=== PATIENT | male | born 1955 | race Caucasian/White ===

== ENCOUNTER 2017-08-07 22:56 | Inpatient (IN) | payer SELFPAY ==
[~2017-08-07] VITALS: Ht 170.2 cm; Wt 75.5 kg
[~2017-08-07 22:56] MED LIST: ATOR10TA15 PO; CARV3.12 PO; CITA20TA4 PO; COUM1TAB PO; COUM4TAB PO; FURO1TAB60 PO; FURO1TAB93 PO; GLIP10TA6 PO; GLUC10TA3 PO; HYDR50 PO; KLOR20TA3 PO; LEVO25TA4 PO; LIPI10TA PO; LISI10TA3 PO; Levothyroxine Sodium PO; METF850 PO; ST JTAB PO; VIAG100T PO
[2017-08-07 23:05] VITALS: BP 112/68; PULSE 113; RESP 21; TEMP 97.7; O2SAT 99
[2017-08-08] VITALS (13 sets, daily range): BP systolic 104–120; BP diastolic 66–80; PULSE 118–131; RESP 16–18; TEMP 97.8–99; O2SAT 93–99
[2017-08-08 00:03] LABS: AUTOMATED NEUTROPHIL # 3.1 TH/MM3 (1.8-7.7); BASOPHIL # 0.1 TH/MM3 (0-0.2); BASOPHIL % 1.9 % (0.0-2.0); EOSINOPHIL # 0.2 TH/MM3 (0-0.4); EOSINOPHIL % 4.1 % (0.0-4.0); HEMATOCRIT 38.5 % (39.0-51.0); HEMOGLOBIN 13.1 GM/DL (13.0-17.0); LYMPH % 10.8 % (9.0-44.0); LYMPHOCYTE # 0.5 TH/MM3 (1.0-4.8); MEAN CELL VOLUME 89.4 FL (80.0-100.0); MEAN CORPUSCULAR HEMOGLOBIN 30.5 PG (27.0-34.0); MEAN CORPUSCULAR HGB CONC 34.1 % (32.0-36.0); MEAN PLATELET VOLUME 8.7 FL (7.0-11.0); MONO % 14.1 % (0.0-8.0); MONOCYTE # 0.6 TH/MM3 (0-0.9); NEUT % 69.1 % (16.0-70.0); PLATELET COUNT 222 TH/MM3 (150-450); RED BLOOD COUNT 4.31 MIL/MM3 (4.50-5.90); RED CELL DISTRIBUTION WIDTH 16.3 % (11.6-17.2); WHITE BLOOD COUNT 4.5 TH/MM3 (4.0-11.0)
[2017-08-08 00:05] LABS: BILIRUBIN, URINE NEG (NEG); BLOOD, URINE NEG (NEG); GLUCOSE,URINE NEG (NEG); HYALINE CAST, URINE 2 /lpf (RARE); KETONE, URINE NEG (NEG); NITRITE,URINE NEG (NEG); SQUAMOUS EPITHELIAL CELL URINE <1 /hpf (0-5); TRANSITIONAL EPI CELLS, URINE <1 /hpf; URINE COLOR LIGHT-YELLOW (YELLW/STRAW); URINE LEUKOCYTE ESTERASE NEG (NEG)
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
--- NOTE | 2017-08-08 00:15 | RADRPT ---
EXAM DATE/TIME: 08/07/2017 23:48 [place] COMPARISON: No previous studies available for comparison. INDICATIONS : Short of breath. MEDICAL HISTORY : None. SURGICAL HISTORY : None. ENCOUNTER: Initial ACUITY: 1 day PAIN SCORE: 0/10 LOCATION: Bilateral chest FINDINGS: There is global cardiac enlargement. Small right effusion and right basilar airspace disease. No pneu mothorax. CONCLUSION: 1. Cardiomegaly with right basilar airspace disease. Differential diagnosis includes pneumonia and as piration. Small right effusion. Rah Meyer MD on August 08, 2017 at 0:12 Board Certified Radiologist. This report was verified electronically.
[2017-08-08 00:19] LABS: ALBUMIN 4.2 GM/DL (3.4-5.0); ALT (GPT) 22 U/L (12-78); AST (GOT) 26 U/L (15-37); BICARBONATE 24.2 MEQ/L (21.0-32.0); BLOOD UREA NITROGEN 33 MG/DL (7-18); CALCIUM 9.4 MG/DL (8.5-10.1); CHLORIDE 97 MEQ/L (98-107); CREATININE 1.66 MG/DL (0.60-1.30); GLOMERULAR FILTRATION RATE 42 ML/MIN (>89); GLUCOSE,RANDOM 163 MG/DL (74-106); MAGNESIUM 1.8 MG/DL (1.5-2.5); SODIUM (NA) 132 MEQ/L (136-145)
[2017-08-08 00:22] LABS: PROTHROMBIN TIME - PATIENT 67.9 SEC (9.8-11.6)
[2017-08-08 00:23] LABS: ALKALINE PHOSPHATASE 71 U/L (45-117); TOTAL BILIRUBIN ADULT 1.2 MG/DL (0.2-1.0); TOTAL PROTEIN 8.2 GM/DL (6.4-8.2); TROPONIN I 0.02 NG/ML (0.02-0.05)
[2017-08-08 00:26] LABS: INTERNATIONAL NORMALIZED RATIO 6.8 RATIO
[2017-08-08] MEDS ORDERED: NITROGLYCERIN 2% OINT 1 GM PACKET TOPICAL ONE (01:15)
[2017-08-08] MEDS ORDERED: ASPIRIN 81 MG CHEW TAB CHEW ONE (01:15)
[2017-08-08] MEDS ORDERED: FUROSEMIDE 40 MG/4 ML VIAL IV PUSH ONE (01:15)
[2017-08-08] MEDS ORDERED: METOPROLOL TARTRATE 5 MG/5 ML VIAL IV PUSH PRN (01:30)
[2017-08-08] MEDS ORDERED: GLUCAGON 1 MG/ML VIAL OTHER PRN (01:45)
[2017-08-08] MEDS ORDERED: DEXTROSE 50% IN WATER 50 ML VIAL(D50) IV PUSH PRN (01:45)
[2017-08-08] MEDS ORDERED: SODIUM CHLORIDE 0.9% FLUSH 10 ML FLUSH IV FLUSH PRN (01:45)
--- NOTE | 2017-08-08 02:14 | HHI.HP ---
HPI Service [facility] Primary [facility] Physician Unknown Admission Diagnosis chf exacerbation, cp r/o mi Diagnoses: Travel History International Travel<30 Days: No Contact w/Intl Traveler <30 Da: No Traveled to Known Affected Are: No History of Present Illness 61-year-old male with a past medical history significant for CHF, diabetes mellitus, hypertension, hyperlipidemia and bipolar disorder presents emergency department for evaluation of shortness of breath. For the past 4-5 days the patient has had shortness of breath that is worse when he lies down and increasing bilateral lower extremity edema. He also reports a dry cough. Denies any fevers/chills. He was seen by his primary care physician and his Lasix dose was increased p.o. with initial good response and then symptoms returned. The patient denies any chest pain. No abdominal pain. No nausea/ vomiting/diarrhea. No lateralizing signs/symptoms. Review of Systems Except as stated in HPI: all other systems reviewed are Neg Past Family Social History Past Medical History CHF Diabetes mellitus Hypertension Hyperlipidemia Bipolar disorder Past Surgical History Cholecystectomy Right knee Reported Medications Reported Meds & Active Scripts Active Coumadin (Warfarin) 4 Mg Tab 4 Mg PO DAILY Glipizide 10 Mg Tab 2 Tab PO BIDAC Take 30 minutes before a meal Coumadin (Warfarin) 1 Mg Tab 1 Mg PO DAILY Levothyroxine (Levothyroxine Sodium) 25 Mcg Tab 1.5 Tab PO DAILY 30 Days Lisinopril 10 Mg Tab 10 Mg PO DAILY Lasix (Furosemide) 40 Mg Tab 40 Mg PO DAILY Glucophage (Metformin HCl) 850 Mg Tab 850 Mg PO TIDPC with meals Atorvastatin (Atorvastatin Calcium) 10 Mg Tab 10 Mg PO HS Citalopram (Citalopram Hydrobromide) 20 Mg Tab 20 Mg PO DAILY Klor-Con M20 (Potassium Chloride Microencaps) 20 Meq Tab 20 Meq PO DAILY Carvedilol 3.125 Mg Tab 3.125 Mg PO DAILY Lipitor 10 Mg Tab (Atorvastatin Calcium) 10 Mg Tab 1 Tab PO DAILY [Levothyroxine Sodium] 25 MCG Tab 1.5 Tab PO DAILY@0600 Furosemide 40 Mg Tab 40 Mg PO DAILY Viagra (Sildenafil Citrate) 100 Mg Tab 100 Mg PO DAILY Vistaril (Hydroxyzine Pamoate) 50 Mg Cap 50 Mg PO Q8 Glipizide 10 Mg Tab 2 Tab PO BID Aspirin Ec Low Strength (Aspirin) 81 Mg Tab 81 Mg PO DAILY Allergies: Coded Allergies: No Known Allergies (Unverified Allergy, Unknown, 08/08/17) Family History Negative for CAD/DM Social History Denies alcohol, tobacco and illicit drugs Physical Exam Vital Signs Vital Signs Date Time Temp Pulse Resp B/P (MAP) Pulse Ox O2 Delivery O2 Flow Rate FiO2 08/07/17 23:05 97.7 113 21 112/68 (83) 99 Physical Exam GENERAL: male sitting up in bed SKIN: No rashes, ecchymoses or lesions. Cool and dry. HEAD: Atraumatic. Normocephalic. No temporal or scalp tenderness. EYES: Pupils equal round and reactive. Extraocular motions intact. No scleral icterus. No injection or drainage. ENT: Nose without bleeding, purulent drainage or septal hematoma. Throat without erythema, tonsillar hypertrophy or exudate. Uvula midline. Airway patent. NECK: Trachea midline. No JVD or lymphadenopathy. Supple, nontender, no meningeal signs. CARDIOVASCULAR: Regular rate and rhythm without murmurs, gallops, or rubs. RESPIRATORY: Crackles, right greater than left. GASTROINTESTINAL: Abdomen soft, non-tender, nondistended. No hepato-splenomegaly , or palpable masses. No guarding. MUSCULOSKELETAL: 2+ bilateral lower extremity pitting edema NEUROLOGICAL: Awake and alert. Cranial nerves II through XII intact. Motor and sensory grossly within normal limits. Normal speech. Laboratory Laboratory Tests Test 08/07/17 23:45 White Blood Count 4.5 Red Blood Count 4.31 Hemoglobin 13.1 Hematocrit 38.5 Mean Corpuscular Volume 89.4 Mean Corpuscular Hemoglobin 30.5 Mean Corpuscular Hemoglobin Concent 34.1 Red Cell Distribution Width 16.3 Platelet Count 222 Mean Platelet Volume 8.7 Neutrophils (%) (Auto) 69.1 Lymphocytes (%) (Auto) 10.8 Monocytes (%) (Auto) 14.1 Eosinophils (%) (Auto) 4.1 Basophils (%) (Auto) 1.9 Neutrophils # (Auto) 3.1 Lymphocytes # (Auto) 0.5 Monocytes # (Auto) 0.6 Eosinophils # (Auto) 0.2 Basophils # (Auto) 0.1 CBC Comment DIFF FINAL Differential Comment Prothrombin Time 67.9 Prothromb Time International Ratio 6.8 Activated Partial Thromboplast Time 50.9 Urine Color LIGHT-YELLOW Urine Turbidity CLEAR Urine pH 5.0 Urine Specific [place] 1.008 Urine Protein NEG Urine Glucose (UA) NEG Urine Ketones NEG Urine Occult Blood NEG Urine Nitrite NEG Urine Bilirubin NEG Urine Urobilinogen LESS THAN 2.0 Urine Leukocyte Esterase NEG Urine RBC LESS THAN 1 Urine WBC LESS THAN 1 Urine Squamous Epithelial Cells <1 Urine Transitional Epithelial Cells <1 Urine Hyaline Casts 2 Microscopic Urinalysis Comment CULT NOT INDICATED Blood Urea Nitrogen 33 Creatinine 1.66 Random Glucose 163 Total Protein 8.2 Albumin 4.2 Calcium Level 9.4 Magnesium Level 1.8 Alkaline Phosphatase 71 Aspartate Amino Transf (AST/SGOT) 26 Alanine Aminotransferase (ALT/SGPT) 22 Total Bilirubin 1.2 Sodium Level 132 Potassium Level 4.9 Chloride Level 97 Carbon Dioxide Level 24.2 Anion Gap 11 Estimat Glomerular Filtration Rate 42 Total Creatine Kinase 119 Creatine Kinase MB 2.1 Troponin I 0.02 B-Type Natriuretic Peptide 237 Lipase 485 Result Diagram: 08/07/17 2345 08/07/172344 Caprini VTE Risk Assessment Caprini VTE Risk Assessment: Mod/High Risk (score >= 2) Caprini Risk Assessment Model Point Value = 1 Point Value = 2 Point Value = 3 Point Value = 5 Age 41-60 Minor surgery BMI > 25 kg/m2 Swollen legs Varicose veins or History of unexplained or recurrent spontaneous Oral contraceptives or hormone replacement Sepsis (< 1 month) Serious lung disease, including pneumonia (< 1 month) Abnormal pulmonary function Acute myocardial infarction Congestive heart failure (< 1 month) History of inflammatory bowel disease Medical patient at bed rest Age 61-74 Arthroscopic surgery Major open surgery (> 45 min) Laparoscopic surgery (> 45 min) Malignancy Confined to bed (> 72 hours) Immobilizing plaster cast Central venous access Age >= 75 History of VTE Family history of VTE Factor V Leiden Prothrombin [id number] Lupus anticoagulant Anticardiolipin antibodies Elevated serum homocysteine Heparin-induced thrombocytopenia Other congenital or acquired thrombophilia Stroke (< 1 month) Elective arthroplasty Hip, pelvis, or leg fracture Acute spinal cord injury (< 1 month) Prophylaxis Regimen Total Risk Factor Score Risk Level Prophylaxis Regimen 0-1 Low Early ambulation 2 Moderate Order ONE of the following: *Sequential Compression Device (SCD) *Heparin 5000 units SQ BID 3-4 Higher Order ONE of the following medications: *Heparin 5000 units SQ TID *Enoxaparin/Lovenox 40 mg SQ daily (WT < 150 kg, CrCl > 30 mL/min) *Enoxaparin/Lovenox 30 mg SQ daily (WT < 150 kg, CrCl > 10-29 mL/min) *Enoxaparin/Lovenox 30 mg SQ BID (WT < 150 kg, CrCl > 30 mL/min) AND/OR *Sequential Compression Device (SCD) 5 or more Highest Order ONE of the following medications: *Heparin 5000 units SQ TID (Preferred with Epidurals) *Enoxaparin/Lovenox 40 mg SQ daily (WT < 150 kg, CrCl > 30 mL/min) *Enoxaparin/Lovenox 30 mg SQ daily (WT < 150 kg, CrCl > 10-29 mL/min) *Enoxaparin/Lovenox 30 mg SQ BID (WT < 150 kg, CrCl > 30 mL/min) AND *Sequential Compression Device (SCD) Assessment and Plan Assessment and Plan Assessment/plan: 1. CHF exacerbation/shortness of breath/edema Chest x-ray significant small right pleural effusion with pulmonary vascular congestion, personally reviewed IV Lasix Fluid restriction 2. Atrial fibrillation anticoagulated on Coumadin/supratherapeutic INR INR 6.8 No signs of bleeding Holding home Coumadin 3. Diabetes mellitus Holding home oral anti-hyperglycemics Monitor blood glucose Sliding-scale insulin 4. Hypertension/hyperlipidemia/bipolar disorder Continue home medications once reconciled FEN Heart healthy diet with fluid restriction Electrolytes: monitor and replete prn Holding pharmacologic anticoagulation for supratherapeutic INR Bernadette Cueto MD Aug 08, 2017 02:14
[2017-08-08] MEDS ORDERED: HEPARIN SODIUM - SQ 10,000 UNITS/ML VIAL SQ SCH (06:00)
[2017-08-08] MEDS: FUROSEMIDE 40 MG/4 ML VIAL IVP SCH ×2 (07:33→16:57)
[2017-08-08] MEDS: INSULIN ASPART SUPPLEMENTAL SCALE SQ SCH ×4 (07:34→23:08)
[2017-08-08] MEDS: SODIUM CHLORIDE 0.9% FLUSH 10 ML FLUSH IV FLUSH SCH ×2 (07:34→23:05)
[2017-08-08] MEDS: LEVOTHYROXINE SODIUM 25 MCG TAB PO SCH (09:00)
--- NOTE | 2017-08-08 09:18 | HHI.PR ---
Subjective Remarks Follow up for CHF exacerbation, GARCÍA. The patient reports mild improvement of symptoms overnight. Still with mild shortness of breath and dyspnea on exertion , although he was able to ambulate down the hallway without much difficulty. He denies any chest pain. He reports continued dry nonproductive cough. Denies fevers/chills. Leg swelling improved slightly overnight, still edematous. The patient admits to recent dietary indiscretion likely contributing to fluid overload. He has no other medical complaints at this time. Objective Vitals Vital Signs Date Time Temp Pulse Resp B/P (MAP) Pulse Ox O2 Delivery O2 Flow Rate FiO2 08/08/17 08:53 97.8 130 18 120/78 (92) 97 08/08/17 04:53 99 21 08/08/17 04:51 119 08/08/17 02:54 98.4 130 16 113/71 (85) 96 08/08/17 02:45 118 95 08/07/17 23:05 97.7 113 21 112/68 (83) 99 Result Diagram: 08/07/17234408/07/172344 Imaging Last Impressions Chest X-Ray 08/07/172341 Signed Impressions: Service Date/Time: Monday, August 07, 2017 23:48 - CONCLUSION: 1. Cardiomegaly with right basilar airspace disease. Differential diagnosis includes pneumonia and aspiration. Small right effusion. Rah Meyer MD Objective Remarks GENERAL: Well-nourished, well-developed male patient in [facility]. SKIN: Warm and dry. No rash. HEAD: Normocephalic. Atraumatic. EYES: Pupils equal and round. No scleral icterus. No injection or drainage. ENT: No nasal bleeding or discharge. Mucous membranes pink and moist. NECK: Supple. Trachea midline. CARDIOVASCULAR: Irregular rate and rhythm. No murmur appreciated. RESPIRATORY: No accessory muscle use. Decreased breath sounds at bilateral bases , worse on the right. GASTROINTESTINAL: Abdomen soft, non-tender, nondistended. Normoactive bowel sounds x4. MUSCULOSKELETAL: No obvious deformities. 2+ bilateral lower extremity pitting edema. NEUROLOGICAL: Awake and alert. No obvious cranial nerve deficits. Motor grossly within normal limits. Normal speech. PSYCHIATRIC: Appropriate mood and affect; insight and judgment normal. Medications and IVs Current Medications Medications (Trade) Dose Ordered Sig/Tony Route Start Time Stop Time Status Last Admin (Lopressor Inj) 5 mg Q5M PRN IV PUSH 08/08/17 01:30 (NS Flush) 2 ml BID IV FLUSH 08/08/17 09:00 08/08/17 07:34 (NS Flush) 2 ml UNSCH PRN IV FLUSH 08/08/17 01:45 (Lasix Inj) 40 mg BID@09,18 IVP 08/08/17 09:00 08/08/17 07:33 (D50w (Vial) Inj) 50 ml UNSCH PRN IV PUSH 08/08/17 01:45 (Glucagon Inj) 1 mg UNSCH PRN OTHER 08/08/17 01:45 (NovoLOG SUPPLEMENTAL SCALE) 1 ACHS SLIDING SCALE SQ 08/08/17 08:00 (Lipitor) 10 mg HS PO 08/08/17 21:00 (Coreg) 3.125 mg DAILY PO 08/08/17 09:00 08/08/17 09:51 (CeleXA) 20 mg DAILY PO 08/08/17 09:00 08/08/17 09:49 (Synthroid) 37.5 mcg DAILY@0600 PO 08/08/17 09:00 (Tessalon) 100 mg Q8H PRN PO 08/08/17 09:30 08/08/17 09:49 (Tylenol) 650 mg Q4H PRN PO 08/08/17 12:00 A/P Assessment and Plan 61-year-old male with a past medical history significant for CHF, diabetes mellitus, hypertension, hyperlipidemia and bipolar disorder presents with 4-5 day history of shortness of breath, cough, and leg swelling. Acute Systolic CHF Exacerbation: presented with SOB/BUENO/orthopnea/BLE edema. EMR reviewed, last echo on file Mar 2014 with EF 30-35%. -BNP elevated at 237 -Chest x-ray shows small right pleural effusion with pulmonary vascular congestion, personally reviewed -Continue diuresis with IV Lasix 40mg bid, caution with renal insufficiency -Fluid restrictions -Monitor Is&Os -Weigh patient daily -Continue patient's SIMON, BB -Monitor for improvement -Outpatient f/up with director broadcast GARCÍA: Cr 1.66, previously 0.67 in 2014. Possibly secondary to recently increased lasix dose; also may be component of cardiorenal syndrome -continue diuresis and monitor renal function -avoid nephrotoxins -hold patient's lisinopril -repeat BMP in am Atrial fibrillation with RVR: patient with HR into 120s on telemetry. -anticoagulated on Coumadin with supratherapeutic INR. -continue patient's BB -consider adding Cardizem if needed -Monitor on telemetry Supratherapeutic INR: INR 6.8. No active signs of bleeding -Holding home Coumadin for now -monitor daily INR and restart Coumadin when < 3. Pharmacy consult. Diabetes mellitus: chronic -Holding home oral anti-hyperglycemics -Monitor Accu-checks and cover with SSI Hypertension/hyperlipidemia: chronic -continue home meds including statin, coreg. Holding lisinopril for now with GARCÍA. -monitor BP, adjust antihypertensives as needed Depresion/Bipolar disorder: chronic -continue patient's home meds DVT Prophylaxis: holding chemoprophylaxis with supratherapeutic INR Discharge Planning Discharge pending further clinical improvement. Likely needs additional 1-2 days of hospitalization. Dora Alexander PA-C Aug 08, 2017 9:18 am
[2017-08-08] MEDS: BENZONATATE 100 MG CAP PO PRN ×3 (09:49→23:06)
[2017-08-08] MEDS: CITALOPRAM HYDROBROMIDE 20 MG TAB PO SCH (09:49)
[2017-08-08] MEDS: CARVEDILOL 3.125 MG TAB PO SCH (09:51)
[2017-08-08] MEDS: ACETAMINOPHEN 325 MG TAB PO PRN ×2 (16:56→23:07)
[2017-08-08] MEDS ORDERED: METOPROLOL TARTRATE 25 MG TAB PO ONE (23:00)
[2017-08-08] MEDS ORDERED: ALUMINUM/MAGNESIUM/SIMETH 30 ML CUP PO ONE (23:00)
[2017-08-08] MEDS: ATORVASTATIN 10 MG TAB PO SCH (23:06)
[2017-08-08] MEDS ORDERED: RESP: IPRATROPIUM 0.5 MG/2.5 ML NEB NEB PRN (23:45)
[2017-08-09] VITALS (13 sets, daily range): BP systolic 90–107; BP diastolic 65–81; PULSE 95–148; RESP 16–18; TEMP 96.9–98.6; O2SAT 94–98
--- NOTE | 2017-08-09 00:14 | EKG ---
Date Performed: 08/08/2017 Time Performed: 01:14:07 PTAGE: 61 years EKG: ATRIAL FLUTTER/TACHYCARDIA WITH RAPID VENTRICULAR RESPONSE MARKED RIGHT AXIS DEVIATION INTR AVENTRICULAR CONDUCTION DELAY POSSIBLE ANTERIOR MYOCARDIAL INFARCTION ABNORMAL ECG PREVIOUS TRACING : 08/08/2017 01.13 Compared to previous tracing, rate has increased DOCTOR: Kalpesh Cramer Interpretating Date/Time 08/09/2017 00:13:19
[2017-08-09] MEDS: LEVOTHYROXINE SODIUM 25 MCG TAB PO SCH (05:43)
[2017-08-09 07:03] LABS: AUTOMATED NEUTROPHIL # 9.8 TH/MM3 (1.8-7.7); BASOPHIL % 0.3 % (0.0-2.0); HEMATOCRIT 37.6 % (39.0-51.0); HEMOGLOBIN 12.9 GM/DL (13.0-17.0); LYMPH % 4.5 % (9.0-44.0); LYMPHOCYTE # 0.5 TH/MM3 (1.0-4.8); MEAN CELL VOLUME 89.1 FL (80.0-100.0); MEAN CORPUSCULAR HEMOGLOBIN 30.5 PG (27.0-34.0); MEAN CORPUSCULAR HGB CONC 34.3 % (32.0-36.0); MEAN PLATELET VOLUME 8.7 FL (7.0-11.0); MONO % 5.4 % (0.0-8.0); MONOCYTE # 0.6 TH/MM3 (0-0.9); NEUT % 89.8 % (16.0-70.0); PLATELET COUNT 181 TH/MM3 (150-450); RED BLOOD COUNT 4.22 MIL/MM3 (4.50-5.90); RED CELL DISTRIBUTION WIDTH 16.3 % (11.6-17.2); WHITE BLOOD COUNT 10.9 TH/MM3 (4.0-11.0)
[2017-08-09 07:17] LABS: BICARBONATE 24.1 MEQ/L (21.0-32.0); CALCIUM 9.2 MG/DL (8.5-10.1); CREATININE 1.53 MG/DL (0.60-1.30)
[2017-08-09 07:22] LABS: INTERNATIONAL NORMALIZED RATIO 4.8 RATIO; PROTHROMBIN TIME - PATIENT 47.9 SEC (9.8-11.6)
[2017-08-09] MEDS: BENZONATATE 100 MG CAP PO PRN ×2 (07:44→16:03)
[2017-08-09] MEDS: SODIUM CHLORIDE 0.9% FLUSH 10 ML FLUSH IV FLUSH SCH ×2 (07:44→21:11)
[2017-08-09] MEDS: CITALOPRAM HYDROBROMIDE 20 MG TAB PO SCH (07:44)
[2017-08-09] MEDS: FUROSEMIDE 40 MG/4 ML VIAL IVP SCH (07:45)
[2017-08-09] MEDS: CARVEDILOL 3.125 MG TAB PO SCH ×2 (07:46→21:10)
[2017-08-09] MEDS: INSULIN ASPART SUPPLEMENTAL SCALE SQ SCH ×4 (08:00→21:11)
--- NOTE | 2017-08-09 15:22 | HHI.PR ---
Subjective Remarks The patient said he was very short of breath with minimal exertion. He has been coughing a lot. He says his mucus is clear. He is looking forward to leaving the hospital soon. His family was at the bedside and their questions were answered. Objective Vitals Vital Signs Date Time Temp Pulse Resp B/P (MAP) Pulse Ox O2 Delivery O2 Flow Rate FiO2 08/09/17 12:33 96.9 110 18 105/68 (80) 96 08/09/17 08:05 97.6 118 18 106/76 (86) 95 08/09/17 08:00 108 08/09/17 05:40 97.9 111 18 103/72 (82) 96 08/09/17 05:31 98.6 95 18 107/81 (90) 96 08/09/17 04:03 109 08/09/17 00:10 97 Nasal Cannula 2.00 08/09/17 00:08 121 08/08/17 23:52 98.2 131 18 118/80 (93) 94 08/08/17 23:30 97 Nasal Cannula 2.00 08/08/17 23:12 130 96 08/08/17 20:28 97 21 08/08/17 20:18 124 08/08/17 19:39 99.0 128 18 108/74 (85) 93 08/08/17 17:21 123 08/08/17 16:34 97.8 127 16 120/68 (85) 98 I/O 08/08/17 08/08/17 08/08/17 08/09/17 08/09/17 08/09/17 07:00 15:00 23:00 07:00 15:00 23:00 Intake Total 200 ml 50 ml Output Total 350 ml 400 ml Balance -150 ml -350 ml Intake Oral 200 ml 50 ml Output Urine Total 350 ml 400 ml Result Diagram: 08/09/17 0550 08/09/17 0554 Imaging Last Impressions Chest X-Ray 08/07/17 6829 Signed Impressions: Service Date/Time: Monday, August 07, 2017 23:48 - CONCLUSION: 1. Cardiomegaly with right basilar airspace disease. Differential diagnosis includes pneumonia and aspiration. Small right effusion. Rah Meyer MD Objective Remarks GENERAL: Well-nourished, well-developed male patient in [facility]. SKIN: Warm and dry. No rash. HEAD: Normocephalic. Atraumatic. EYES: Pupils equal and round. No scleral icterus. No injection or drainage. ENT: No nasal bleeding or discharge. Mucous membranes pink and moist. NECK: Supple. Trachea midline. CARDIOVASCULAR: Irregular rate and rhythm. No murmur appreciated. RESPIRATORY: No accessory muscle use. Decreased breath sounds at bilateral bases. GASTROINTESTINAL: Abdomen soft, non-tender, nondistended. Normoactive bowel sounds x4. MUSCULOSKELETAL: No obvious deformities. 1-2+ bilateral lower extremity pitting edema. NEUROLOGICAL: Awake and alert. No obvious cranial nerve deficits. Motor grossly within normal limits. Normal speech. PSYCHIATRIC: Appropriate mood and affect; insight and judgment normal. Medications and IVs Current Medications Medications (Trade) Dose Ordered Sig/Tony Route Start Time Stop Time Status Last Admin (Lopressor Inj) 5 mg Q5M PRN IV PUSH 08/08/17 01:30 (NS Flush) 2 ml BID IV FLUSH 08/08/17 09:00 08/09/17 07:44 (NS Flush) 2 ml UNSCH PRN IV FLUSH 08/08/17 01:45 (Lasix Inj) 40 mg BID@ IVP 08/08/17 09:00 08/09/17 07:45 (D50w (Vial) Inj) 50 ml UNSCH PRN IV PUSH 08/08/17 01:45 (Glucagon Inj) 1 mg UNSCH PRN OTHER 08/08/17 01:45 (NovoLOG SUPPLEMENTAL SCALE) 1 ACHS SLIDING SCALE SQ 08/08/17 08:00 08/09/17 12:00 (Lipitor) 10 mg HS PO 08/08/17 21:00 08/08/17 23:06 (Coreg) 3.125 mg DAILY PO 08/08/17 09:00 08/09/17 07:46 (CeleXA) 20 mg DAILY PO 08/08/17 09:00 08/09/17 07:44 (Synthroid) 37.5 mcg DAILY@0600 PO 08/08/17 09:00 08/09/17 05:43 (Tessalon) 100 mg Q8H PRN PO 08/08/17 09:30 08/09/17 07:44 (Tylenol) 650 mg Q4H PRN PO 08/08/17 12:00 4/23/18 23:07 (Atrovent Neb) 0.5 mg Q4HR NEB PRN NEB 08/08/17 23:45 08/09/17 00:06 A/P Assessment and Plan 61-year-old male with a past medical history significant for CHF, diabetes mellitus, hypertension, hyperlipidemia and bipolar disorder presents with 4-5 day history of shortness of breath, cough, and leg swelling. Acute Systolic CHF Exacerbation: presented with SOB/BUENO/orthopnea/BLE edema. EMR reviewed, last echo on file Mar 2014 with EF 30-35%. -BNP elevated at 237 -Chest x-ray shows right airspace disease -Continue diuresis, change Lasix to 40mg PO bid, caution with renal insufficiency -Fluid restrictions -Monitor Is&Os -Weigh patient daily -Continue patient's SIMON, BB -Monitor for improvement -Outpatient f/up with [employer]ili[employer] supervisor. Consider consult. - repeat echo. - PT eval. CAP CXR suggestive of right sided PNA. Pt has cough. - start IV azithromycin and ceftriaxone. - CXR in AM. - Tessalon Perles as needed. GARCÍA: Cr 1.66, previously 0.67 in 2013. Possibly secondary to recently increased Lasix dose; also may be component of cardiorenal syndrome -continue diuresis and monitor renal function -avoid nephrotoxins -hold patient's lisinopril -repeat BMP in am Atrial fibrillation with RVR. -anticoagulated on Coumadin with supratherapeutic INR. -continue patient's Coreg, increase to 6.25 mg BID if tolerates. -Monitor on telemetry Supratherapeutic INR: INR 6.8. No active signs of bleeding -Holding home Coumadin for now -monitor daily INR and restart Coumadin when < 3. Diabetes mellitus: chronic -Holding home oral anti-hyperglycemics -Monitor Accu-checks and cover with SSI - add long acting insulin. Hypertension/hyperlipidemia: chronic -continue home meds including statin, coreg. Holding lisinopril for now with GARCÍA. -monitor BP, adjust antihypertensives as needed Depresion/Bipolar disorder: chronic -continue patient's home meds Hyponatremia Likely s/t diuresis. - monitor BMP. DVT Prophylaxis: holding chemoprophylaxis with supratherapeutic INR Discharge Planning Awaiting improvement Sergei Boswell DO Aug 09, 2017 15:22
[2017-08-09] MEDS ORDERED: INSULIN ASPART 1,000 UNITS/10 ML VIAL SQ ONE (15:30)
[2017-08-09] MEDS ORDERED: CARVEDILOL 3.125 MG TAB PO ONE (15:30)
[2017-08-09] MEDS: AZITHROMYCIN INJ 500 MG in SODIUM CHLOR 0.9% 250 ML INJ 250 ML IV SCH (16:03)
[2017-08-09] MEDS: cefTRIAXone INJ 1,000 MG in SODIUM CHLORIDE 0.9% INJ 100 ML IV SCH (16:03)
[2017-08-09] MEDS: FUROSEMIDE 40 MG TAB PO SCH (18:00)
[2017-08-09] MEDS ORDERED: CARVEDILOL 3.125 MG TAB PO SCH (21:00)
[2017-08-09] MEDS: ATORVASTATIN 10 MG TAB PO SCH (21:10)
[2017-08-09] MEDS: INSULIN DETEMIR 100 UNITS/ML VIAL SQ SCH (21:11)
[2017-08-10] VITALS (10 sets, daily range): BP systolic 90–123; BP diastolic 51–75; PULSE 98–126; RESP 16–24; TEMP 97.4–98.3; O2SAT 94–97
[2017-08-10] MEDS: LEVOTHYROXINE SODIUM 25 MCG TAB PO SCH (05:42)
[2017-08-10 06:02] LABS: HEMATOCRIT 36.7 % (39.0-51.0); HEMOGLOBIN 12.5 GM/DL (13.0-17.0); MEAN CELL VOLUME 88.5 FL (80.0-100.0); MEAN CORPUSCULAR HEMOGLOBIN 30.2 PG (27.0-34.0); MEAN CORPUSCULAR HGB CONC 34.1 % (32.0-36.0); MEAN PLATELET VOLUME 8.3 FL (7.0-11.0); PLATELET COUNT 188 TH/MM3 (150-450); RED BLOOD COUNT 4.14 MIL/MM3 (4.50-5.90); WHITE BLOOD COUNT 7.3 TH/MM3 (4.0-11.0)
[2017-08-10 06:03] LABS: INTERNATIONAL NORMALIZED RATIO 2.9 RATIO; PROTHROMBIN TIME - PATIENT 29.4 SEC (9.8-11.6)
--- NOTE | 2017-08-10 06:06 | RADRPT ---
EXAM DATE/TIME: 08/10/2017 05:54 [facility] COMPARISON: CHEST SINGLE AP, August 07, 2017, 23:48. INDICATIONS : Shortness of breath. MEDICAL HISTORY : None. SURGICAL HISTORY : None. ENCOUNTER: Subsequent ACUITY: 4 - 6 days PAIN SCORE: 0/10 LOCATION: Bilateral chest FINDINGS: Cardiomegaly with right basilar airspace disease and right effusion similar to August 07. No pneumotho rax. CONCLUSION: 1. Cardiomegaly with right basilar airspace disease and pleural effusion similar to prior study. Mini mal left basilar atelectasis. Rah Meyer MD on August 10, 2017 at 6:04 Board Certified Radiologist. This report was verified electronically.
[2017-08-10] MEDS: BENZONATATE 100 MG CAP PO PRN ×2 (06:28→16:13)
[2017-08-10 06:37] LABS: BICARBONATE 27.1 MEQ/L (21.0-32.0); CALCIUM 9.1 MG/DL (8.5-10.1); CREATININE 1.58 MG/DL (0.60-1.30); MAGNESIUM 2.1 MG/DL (1.5-2.5)
--- NOTE | 2017-08-10 09:21 | HHI.PR ---
Subjective Remarks The patient was feeling a lot better. He was having a productive cough. His breathing was better. He still has some leg swelling. Discussed with his family. Objective Vitals Vital Signs Date Time Temp Pulse Resp B/P (MAP) Pulse Ox O2 Delivery O2 Flow Rate FiO2 08/10/17 08:32 111 08/10/17 08:20 98.0 124 24 96/67 (77) 96 08/10/17 05:32 98.3 122 16 100/75 (83) 96 08/10/17 00:24 97.5 108 16 94/59 (71) 94 08/09/17 23:00 100 08/09/17 22:23 98 08/09/17 21:28 97.5 148 16 94/69 (77) 94 08/09/17 19:00 Room Air 08/09/17 16:33 97.5 122 18 90/65 (73) 98 08/09/17 15:00 107 08/09/17 12:33 96.9 110 18 105/68 (80) 96 I/O 08/09/17 08/09/17 08/09/17 08/10/17 08/10/17 08/10/17 07:00 15:00 23:00 07:00 15:00 23:00 Intake Total 50 ml 1320 ml Output Total 400 ml 1270 ml Balance -350 ml 50 ml Intake Oral 50 ml 620 ml IV Total 700 ml Output Urine Total 400 ml 1270 ml Result Diagram: 08/10/17 0526 08/10/17 0526 Imaging Last Impressions Chest X-Ray 08/10/17 0600 Signed Impressions: Service Date/Time: Thursday, August 10, 2017 05:54 - CONCLUSION: 1. Cardiomegaly with right basilar airspace disease and pleural effusion similar to prior study. Minimal left basilar atelectasis. Rah Meyer MD Objective Remarks GENERAL: Well-nourished, well-developed male patient in [facility]. SKIN: Warm and dry. No rash. HEAD: Normocephalic. Atraumatic. EYES: Pupils equal and round. No scleral icterus. No injection or drainage. ENT: No nasal bleeding or discharge. Mucous membranes pink and moist. NECK: Supple. Trachea midline. CARDIOVASCULAR: Irregular rate and rhythm. No murmur appreciated. RESPIRATORY: No accessory muscle use. Crackles at the right base. GASTROINTESTINAL: Abdomen soft, non-tender, nondistended. Normoactive bowel sounds x4. MUSCULOSKELETAL: No obvious deformities. 1-2+ bilateral lower extremity pitting edema. NEUROLOGICAL: Awake and alert. No obvious cranial nerve deficits. Motor grossly within normal limits. Normal speech. PSYCHIATRIC: Appropriate mood and affect; insight and judgment normal. Medications and IVs Current Medications Medications (Trade) Dose Ordered Sig/Tony Route Start Time Stop Time Status Last Admin (Lopressor Inj) 5 mg Q5M PRN IV PUSH 08/08/17 01:30 (NS Flush) 2 ml BID IV FLUSH 08/08/17 09:00 08/09/17 21:11 (NS Flush) 2 ml UNSCH PRN IV FLUSH 08/08/17 01:45 (D50w (Vial) Inj) 50 ml UNSCH PRN IV PUSH 08/08/17 01:45 (Glucagon Inj) 1 mg UNSCH PRN OTHER 08/08/17 01:45 (NovoLOG SUPPLEMENTAL SCALE) 1 ACHS SLIDING SCALE SQ 08/08/17 08:00 08/09/17 21:11 (CeleXA) 20 mg DAILY PO 08/08/17 09:00 08/09/17 07:44 (Synthroid) 37.5 mcg DAILY@0600 PO 08/08/17 09:00 08/10/17 05:42 (Tylenol) 650 mg Q4H PRN PO 08/08/17 12:00 08/08/17 23:07 (Atrovent Neb) 0.5 mg Q4HR NEB PRN NEB 08/08/17 23:45 08/09/17 00:06 (Levemir Inj) 15 units HS SQ 08/09/17 21:00 08/09/17 21:11 (Lasix) 40 mg BID@,18 PO 08/09/17 18:00 08/09/17 18:00 Azithromycin 500 mg/Sodium Chloride 250 ml @ 250 mls/hr Q24H IV 08/09/17 16:00 08/09/17 16:03 Ceftriaxone Sodium 1000 mg/ Sodium Chloride 100 ml @ 200 mls/hr Q24H IV 08/09/17 17:00 08/09/17 16:03 (Tessalon) 200 mg TID PRN PO 08/09/17 15:15 08/10/17 06:28 (Coreg) 6.25 mg BID PO 08/09/17 21:00 08/09/17 21:10 A/P Assessment and Plan 61-year-old male with a past medical history significant for CHF, diabetes mellitus, hypertension, hyperlipidemia and bipolar disorder presents with 4-5 day history of shortness of breath, cough, and leg swelling. Acute Systolic CHF Exacerbation: presented with SOB/BUENO/orthopnea/BLE edema. EMR reviewed, last echo on file Mar 2014 with EF 30-35%. -BNP elevated at 237 -Chest x-ray shows right airspace disease -Continue diuresis, change Lasix to 40mg PO bid, caution with renal insufficiency -Fluid restrictions -Monitor Is & Os -Weigh patient daily -Continue patient's BB -Monitor for improvement - consult cardiology. - repeat echo. - PT eval. CAP CXR suggestive of right sided PNA. Pt has cough. - started IV azithromycin and ceftriaxone. - Tessalon Perles as needed. - encourage ambulation. - IS. GARCÍA: Cr 1.66, previously 0.67 in 2013. Possibly secondary to recently increased Lasix dose; also may be component of cardiorenal syndrome -continue diuresis and monitor renal function -avoid nephrotoxins -hold patient's lisinopril -repeat BMP in am Atrial fibrillation with RVR. -anticoagulated on Coumadin with supratherapeutic INR. Coumadin resumed 08/10. -continue patient's Coreg, increase to 6.25 mg BID if tolerates. -Monitor on telemetry - cardiology consult. Diabetes mellitus: chronic -Holding home oral anti-hyperglycemics -Monitor Accu-checks and cover with SSI - added long acting insulin. Hypertension/hyperlipidemia: chronic -continue home meds including statin, coreg. Holding lisinopril for now with GARCÍA. -monitor BP, adjust antihypertensives as needed Depresion/Bipolar disorder: chronic -continue patient's home meds Hyponatremia Likely s/t diuresis. - monitor BMP. DVT Prophylaxis: holding chemoprophylaxis with supratherapeutic INR Discharge Planning Awaiting improvement Sergei Boswell DO Aug 10, 2017 09:21
[2017-08-10] MEDS: FUROSEMIDE 40 MG TAB PO SCH ×2 (09:36→17:54)
[2017-08-10] MEDS: CITALOPRAM HYDROBROMIDE 20 MG TAB PO SCH (09:36)
[2017-08-10] MEDS: CARVEDILOL 3.125 MG TAB PO SCH ×2 (09:36→21:47)
[2017-08-10] MEDS: SODIUM CHLORIDE 0.9% FLUSH 10 ML FLUSH IV FLUSH SCH ×2 (09:37→21:48)
[2017-08-10] MEDS: INSULIN ASPART SUPPLEMENTAL SCALE SQ SCH ×4 (09:37→21:47)
[2017-08-10 11:16] LABS: CHOLESTEROL/ HDL RATIO 4.79 RATIO; HDL CHOLESTEROL 24.4 MG/DL (40.0-60.0)
--- NOTE | 2017-08-10 14:32 | ECHRPT ---
Indication: HEART FAILURE CONCLUSIONS Mildly dilated left ventricle. Wall thickness is normal. The left ventricular systolic function is severely reduced with an estimated ejection fraction less than 20%. The right ventricle is mildly dilated. The right ventricular systoilc function is normal. Mitral annular calcification is present. Trace mitral valve regurgitation. Aortic valve sclerosis is present. There is moderate tricuspid regurgitation. The estimated pulmonary arterial pressure is 52 mmHg. The inferior vena cava is dilated. There is a trivial pericardial effusion present. BP: / HR: Rhythm: MEASUREMENTS (Male / Female) Normal Values Technical Quality: 2D ECHO LV Diastolic Diameter PLAX 5.3 cm 4.2 - 5.9 / 3.9 - 5.3 cm LV Systolic Diameter PLAX 5.1 cm IVS Diastolic Thickness 0.7 cm 0.6 - 1.0 / 0.6 - 0.9 cm LVPW Diastolic Thickness 0.7 cm 0.6 - 1.0 / 0.6 - 0.9 cm LV Relative Wall Thickness 0.3 RV Internal Dim ED PLAX 3.5 cm LA Systolic Diameter LX 3.8 cm 3.0 - 4.0 / 2.7 - 3.8 cm M-MODE AV Cusp Separation MM 1.5 cm DOPPLER Mitral E Point Velocity 72.6 cm/s TR Peak Velocity 282.0 cm/s TR Peak Gradient 31.8 mmHg Right Atrial Pressure 20.0 mmHg Pulmonary Artery Systolic Pressu 51.8 mmHg Right Ventricular Systolic Press 51.8 mmHg FINDINGS LEFT VENTRICLE Mildly dilated left ventricle. Wall thickness is normal. The left ventricular systolic function is severely reduced with an estimated ejection fraction less than 20%. RIGHT VENTRICLE The right ventricle is mildly dilated. The right ventricular systoilc function is normal. LEFT ATRIUM The left atrial size is normal. RIGHT ATRIUM The right atrial size is normal. ATRIAL SEPTUM Normal atrial septal thickness without atrial level shunting by limited color doppler interrogation. AORTA The aortic root and proximal ascending aorta are normal in size on limited imaging. MITRAL VALVE Mitral annular calcification is present. Trace mitral valve regurgitation. AORTIC VALVE Aortic valve sclerosis is present. TRICUSPID VALVE There is moderate tricuspid regurgitation. The estimated pulmonary arterial pressure is 52 mmHg. PULMONARY VALVE No pulmonary valve regurgitation or stenosis. VESSELS The inferior vena cava is dilated. PERICARDIUM There is a trivial pericardial effusion present. Sae Rose MD, FACC, FSCAI (Electronically Signed) Final Date:10 August 2017 14:30
[2017-08-10] MEDS ORDERED: MAGNESIUM OXIDE 400 MG TAB PO ONE (15:00)
[2017-08-10] MEDS: MAGNESIUM SULFATE 1 GM PREMIX 100 ML IV SCH ×2 (15:18→16:12)
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
[2017-08-10] MEDS ORDERED: WARFARIN SOD 4 MG TAB PO SCH (16:00)
[2017-08-10] MEDS: cefTRIAXone INJ 1,000 MG in SODIUM CHLORIDE 0.9% INJ 100 ML IV SCH (17:23)
[2017-08-10] MEDS: AZITHROMYCIN INJ 500 MG in SODIUM CHLOR 0.9% 250 ML INJ 250 ML IV SCH (17:54)
[2017-08-10] MEDS: INSULIN DETEMIR 100 UNITS/ML VIAL SQ SCH (21:47)
[2017-08-10] MEDS: MAGNESIUM OXIDE 400 MG TAB PO SCH (21:48)
[2017-08-11] VITALS (7 sets, daily range): BP systolic 90–118; BP diastolic 61–75; PULSE 101–143; RESP 16–20; TEMP 95.5–97.9; O2SAT 93–98
[2017-08-11] MEDS: LEVOTHYROXINE SODIUM 25 MCG TAB PO SCH (05:17)
[2017-08-11] MEDS: BENZONATATE 100 MG CAP PO PRN ×3 (05:19→21:55)
[2017-08-11] MEDS: FUROSEMIDE 40 MG TAB PO SCH ×2 (07:26→17:07)
[2017-08-11] MEDS: CITALOPRAM HYDROBROMIDE 20 MG TAB PO SCH (07:26)
[2017-08-11] MEDS: CARVEDILOL 3.125 MG TAB PO SCH ×2 (07:27→21:54)
[2017-08-11] MEDS: SODIUM CHLORIDE 0.9% FLUSH 10 ML FLUSH IV FLUSH SCH ×2 (07:27→21:56)
[2017-08-11] MEDS: INSULIN ASPART SUPPLEMENTAL SCALE SQ SCH ×4 (08:00→22:10)
[2017-08-11 08:01] LABS: INTERNATIONAL NORMALIZED RATIO 2.2 RATIO; PROTHROMBIN TIME - PATIENT 22.2 SEC (9.8-11.6)
[2017-08-11 08:28] LABS: BICARBONATE 26.5 MEQ/L (21.0-32.0); CALCIUM 8.8 MG/DL (8.5-10.1); CREATININE 1.23 MG/DL (0.60-1.30); MAGNESIUM 2.6 MG/DL (1.5-2.5)
--- NOTE | 2017-08-11 10:20 | HHI.PR ---
Subjective Remarks The pt was resting comfortably in bed. He said that he has been tired. He has been eating well. His breathing is better. He is still coughing up mucus. Discussed with family at the bedside. Objective Vitals Vital Signs Date Time Temp Pulse Resp B/P (MAP) Pulse Ox O2 Delivery O2 Flow Rate FiO2 08/11/17 08:40 95 21 08/11/17 08:00 95.5 121 20 103/75 (84) 98 08/11/17 02:25 97.9 143 16 90/71 (77) 93 08/10/17 23:00 98 08/10/17 21:28 97.9 125 16 123/68 (86) 96 08/10/17 19:00 96 Room Air 08/10/17 18:27 126 08/10/17 16:05 97.4 102 20 90/70 (77) 97 08/10/17 12:00 99 08/10/17 11:24 97.9 104 20 94/51 (65) 95 I/O 08/10/17 08/10/17 08/10/17 08/11/17 08/11/17 08/11/17 07:00 15:00 23:00 07:00 15:00 23:00 Intake Total 240 ml Output Total 600 ml Balance 240 ml -600 ml Intake Oral 240 ml Output Urine Total 600 ml # Voids 2 Result Diagram: 08/10/17 0526 08/11/17 0700 Imaging Last Impressions Chest X-Ray 08/10/17 0600 Signed Impressions: Service Date/Time: Thursday, August 10, 2017 05:54 - CONCLUSION: 1. Cardiomegaly with right basilar airspace disease and pleural effusion similar to prior study. Minimal left basilar atelectasis. Rah Meyer MD Objective Remarks GENERAL: Well-nourished, well-developed male patient in [facility]. SKIN: Warm and dry. No rash. HEAD: Normocephalic. Atraumatic. EYES: Pupils equal and round. No scleral icterus. No injection or drainage. ENT: No nasal bleeding or discharge. Mucous membranes pink and moist. NECK: Supple. Trachea midline. CARDIOVASCULAR: Irregular rate and rhythm. No murmur appreciated. RESPIRATORY: No accessory muscle use. Crackles at the bases. GASTROINTESTINAL: Abdomen soft, non-tender, nondistended. Normoactive bowel sounds x4. MUSCULOSKELETAL: No obvious deformities. 1-2+ bilateral lower extremity pitting edema. NEUROLOGICAL: Awake and alert. No obvious cranial nerve deficits. Motor grossly within normal limits. Normal speech. PSYCHIATRIC: Appropriate mood and affect; insight and judgment normal. Medications and IVs Current Medications Medications (Trade) Dose Ordered Sig/Tony Route Start Time Stop Time Status Last Admin (Lopressor Inj) 5 mg Q5M PRN IV PUSH 08/08/17 01:30 (NS Flush) 2 ml BID IV FLUSH 08/08/17 09:00 08/11/17 07:27 (NS Flush) 2 ml UNSCH PRN IV FLUSH 08/08/17 01:45 (D50w (Vial) Inj) 50 ml UNSCH PRN IV PUSH 08/08/17 01:45 (Glucagon Inj) 1 mg UNSCH PRN OTHER 08/08/17 01:45 (NovoLOG SUPPLEMENTAL SCALE) 1 ACHS SLIDING SCALE SQ 08/08/17 08:00 08/10/17 21:47 (CeleXA) 20 mg DAILY PO 08/08/17 09:00 08/11/17 07:26 (Synthroid) 37.5 mcg DAILY@0600 PO 08/08/17 09:00 08/11/17 05:17 (Tylenol) 650 mg Q4H PRN PO 08/08/17 12:00 08/08/17 23:07 (Atrovent Neb) 0.5 mg Q4HR NEB PRN NEB 08/08/17 23:45 08/09/17 00:06 (Levemir Inj) 15 units HS SQ 08/09/17 21:00 08/10/17 21:47 (Lasix) 40 mg BID@,18 PO 08/09/17 18:00 08/11/17 07:26 Azithromycin 500 mg/Sodium Chloride 250 ml @ 250 mls/hr Q24H IV 08/09/17 16:00 08/10/17 17:54 Ceftriaxone Sodium 1000 mg/ Sodium Chloride 100 ml @ 200 mls/hr Q24H IV 08/09/17 17:00 08/10/17 17:23 (Tessalon) 200 mg TID PRN PO 08/09/17 15:15 08/11/17 05:19 (Coreg) 6.25 mg BID PO 08/09/17 21:00 08/11/17 07:27 Pharmacy Profile Note 0 ml @ 0 mls/hr UNSCH OTHER 08/10/17 09:30 (Coumadin) 4 mg DAILY@16 PO 08/10/17 16:00 Future hold (Mag-Ox) 400 mg BID@1100,2300 PO 08/10/17 23:00 08/10/17 21:48 A/P Assessment and Plan 61-year-old male with a past medical history significant for CHF, diabetes mellitus, hypertension, hyperlipidemia and bipolar disorder presents with 4-5 day history of shortness of breath, cough, and leg swelling. Acute Systolic CHF Exacerbation: presented with SOB/BUENO/orthopnea/BLE edema. EMR reviewed, last echo on file Mar 2014 with EF 30-35%. BNP elevated at 237. Chest x-ray shows right airspace disease. Repeat Echo with EF < 20%. - Continue diuresis, change Lasix to 40mg PO bid, caution with renal insufficiency - Fluid restrictions - Monitor Is & Os - Continue patient's BB - follow up with cardiology. May need AICD placement. CAP CXR suggestive of right sided PNA. Pt has cough. - started IV azithromycin and ceftriaxone. - Tessalon Perles as needed. - encourage ambulation. - IS. AK Cr 1.66, previously 0.67 in 2013. Possibly secondary to recently increased Lasix dose. Improving. - continue diuresis and monitor renal function - avoid nephrotoxins - hold patient's lisinopril - repeat BMP in am Atrial fibrillation with RVR. Anticoagulated on Coumadin with supratherapeutic INR. Coumadin resumed 08/10. - continue patient's Coreg, increase to 6.25 mg BID if tolerates. - Monitor on telemetry - cardiology following. Diabetes mellitus Chronic. - Holding home oral anti-hyperglycemics - Monitor Accu-checks and cover with SSI - added long acting insulin. Hypertension/hyperlipidemia: chronic -continue home meds including statin, coreg. Holding lisinopril for now with GARCÍA. -monitor BP, adjust antihypertensives as needed Hyponatremia Likely s/t diuresis. - monitor BMP. DVT Prophylaxis: holding chemoprophylaxis with supratherapeutic INR Discharge Planning Awaiting final cardiology recommendations Sergei Boswell DO Aug 11, 2017 10:20
[2017-08-11] MEDS: POTASSIUM CHLORIDE 20 MEQ CONTROLLED RELEASE TAB PO SCH ×2 (11:06→21:55)
[2017-08-11] MEDS: MAGNESIUM OXIDE 400 MG TAB PO SCH (11:06)
[2017-08-11] MEDS: cefTRIAXone INJ 1,000 MG in SODIUM CHLORIDE 0.9% INJ 100 ML IV SCH (16:35)
[2017-08-11] MEDS: AZITHROMYCIN INJ 500 MG in SODIUM CHLOR 0.9% 250 ML INJ 250 ML IV SCH (16:36)
[2017-08-11] MEDS: INSULIN DETEMIR 100 UNITS/ML VIAL SQ SCH (21:00)
--- NOTE | 2017-08-11 22:00 | MB ---
cc: Ritesh Domínguez MD,Ritesh Rose,Sae Boswell,Sergei Echevarria,Amanda CAMACHO DATE: 08/11/2017 REASON FOR CONSULTATION: Heart failure for possible defibrillator insertion. HISTORY OF PRESENT ILLNESS: Mr. Ferro is a 61 year-old gentleman with history of congestive heart failure, cardiomyopathy, previous hospitalization in 2003 due to heart failure. At that time, ejection fraction was 20%, followed by his primary doctor. He was readmitted today due to shortness of breath. Ejection fraction during hospitalization is around 20%. The patient on beta margarita and SIMON inhibitor initiated. I am going to start the gentleman on Entresto and I was consulted for evaluation and management. The chart was reviewed. The patient was evaluated. ALLERGIES: None. SOCIAL HISTORY: The patient denied smoking and drinking. FAMILY HISTORY: Noncontributory to his current medical condition. MEDICATIONS: 1. Coumadin. 2. Glipizide. 3. Levoxyl. 4. Lisinopril. 5. Lasix. 6. Atorvastatin. 7. Coreg. 8. Lipitor. 9. Viagra 10. Vistaril 11. Aspirin. REVIEW OF SYSTEMS: Currently, the patient refers shortness of breath on minimal activity. No chest pain, no chest discomfort. PHYSICAL EXAMINATION: GENERAL: Alert, fully oriented. VITAL SIGNS: Blood pressure is 92/61, pulse 101, respiratory rate 20-22, LUNGS: Minimal crackles. CARDIOVASCULAR: S1, S2, tachycardic. Regular. ABDOMEN: Soft, no mass, no bruit. EXTREMITIES: With edema +1. CARDIOLOGY STUDIES: Electrocardiogram indicates what appeared to be atrial flutter with biventricular response. LABORATORY DATA: Hemoglobin is 12.5, white blood cell 4.4, potassium is 3.7, creatinine 1.23, BNP 424. ASSESSMENT AND RECOMMENDATION: Mr. Ferro has congestive heart failure. He has atrial flutter with biventricular response, that worsened his condition. He is on beta-margarita. Because of the blood pressure, lisinopril was held and not reinitiated again today. The gentleman had ejection fraction in 03/2014 of 30%. It is still 20% currently. I had a long conversation with him. The gentleman is going to need flutter ablation. He is already on anticoagulation and also he is going to need a defibrillator for sudden prevention. The risks, the nature and the benefit of the procedure are clearly stated to him. Risks include pneumothorax, cardiac perforation, stroke and even . He understood and agreed to proceed. The gentleman needs to stabilize first, be able to tolerate flat bed, then procedure will be performed. As soon as the blood pressure is adequate, Entresto will be also initiated. Case extensively discussed with he and his . Apparently, there is a left heart catheterization scheduled by Dr. Rose in the morning, then further decision will be also taken. Ritesh Domínguez MD HS/SA/ , 05:19 PM , 06:18 PM
[2017-08-12] VITALS (9 sets, daily range): BP systolic 99–112; BP diastolic 70–78; PULSE 100–127; RESP 16–20; TEMP 97–98; O2SAT 94–97
[2017-08-12] MEDS: MAGNESIUM OXIDE 400 MG TAB PO SCH ×2 (01:00→21:48)
[2017-08-12] MEDS: LEVOTHYROXINE SODIUM 25 MCG TAB PO SCH (06:04)
[2017-08-12] MEDS: BENZONATATE 100 MG CAP PO PRN ×2 (06:04→21:48)
[2017-08-12 07:20] LABS: HEMATOCRIT 35.6 % (39.0-51.0); HEMOGLOBIN 12.1 GM/DL (13.0-17.0); MEAN CELL VOLUME 88.8 FL (80.0-100.0); MEAN CORPUSCULAR HEMOGLOBIN 30.2 PG (27.0-34.0); MEAN PLATELET VOLUME 8.7 FL (7.0-11.0); PLATELET COUNT 171 TH/MM3 (150-450); RED BLOOD COUNT 4.01 MIL/MM3 (4.50-5.90); RED CELL DISTRIBUTION WIDTH 15.6 % (11.6-17.2); WHITE BLOOD COUNT 6.3 TH/MM3 (4.0-11.0)
[2017-08-12 07:27] LABS: INTERNATIONAL NORMALIZED RATIO 1.9 RATIO; PROTHROMBIN TIME - PATIENT 19.4 SEC (9.8-11.6)
[2017-08-12 07:52] LABS: CALCIUM 8.8 MG/DL (8.5-10.1); CREATININE 1.23 MG/DL (0.60-1.30); MAGNESIUM 2.4 MG/DL (1.5-2.5)
[2017-08-12] MEDS: INSULIN ASPART SUPPLEMENTAL SCALE SQ SCH ×5 (08:00→21:52)
[2017-08-12] MEDS: POTASSIUM CHLORIDE 20 MEQ CONTROLLED RELEASE TAB PO SCH ×2 (08:43→21:48)
[2017-08-12] MEDS: SODIUM CHLORIDE 0.9% FLUSH 10 ML FLUSH IV FLUSH SCH ×3 (08:46→21:00)
[2017-08-12] MEDS: FUROSEMIDE 40 MG TAB PO SCH (08:46)
[2017-08-12] MEDS: CITALOPRAM HYDROBROMIDE 20 MG TAB PO SCH (08:46)
[2017-08-12] MEDS: CARVEDILOL 3.125 MG TAB PO SCH ×2 (08:46→21:49)
[2017-08-12] MEDS ORDERED: MIDAZOLAM HCL 2 MG/2 ML VIAL ONE (11:22)
[2017-08-12] MEDS ORDERED: HEPARIN SODIUM - IV 10,000 UNITS/10 ML VIAL ONE (12:00)
[2017-08-12] MEDS ORDERED: CLOPIDOGREL 300 MG TAB ONE (12:17)
[2017-08-12] MEDS ORDERED: TIROFIBAN INFUSION INJ 250 ML IV ONE (12:17)
--- NOTE | 2017-08-12 12:43 | CATHPROC ---
go2 media HIS Report Study Information Study Number Admission Scheduled Start Study Start [id number] Aug 08 2017 1:16AM 08/12/2017 Aug 12 2017 11:08AM [place] [facility] Cardiac Catheterization Admit Source Facility Department Other [facility] Physician and Clinical Staff Initial Sae Santo P[employer] Field Service Technicianmirza Coffey RN, Filipe Poultry Field Service TechnicianBernadette Esqueda,PADILLA Recorder Kahlil Alfonso RCIS(BS) Recorder Phoenix Ordoñez,RT(R) Scrub Marilu Harden ,RT(R) Procedures Performed Procedure Location (Site) Vessel Name Coronary Angiograms LCA Left Coronary Coronary Angiograms RCA Right Coronary PTCA DIAG Ost Left Coronary Stent LAD Mid Left Coronary Wire insertion Fem Art (right) Femoral Art Equipment Time Bag Sorter Description Size Mfg Part Number Used/Scraped [id number] 11:59 KIMBLE [employer] WIRE, ASAHI PROWATER 180CM 180CM Used *[id number] 11:59 KIMBLE [employer] WIRE, ASAHI PROWATER 180CM 180CM Used *[id number] CATHETER, FR5 SWAN MICHEAL 11:24 DRALING CAPONE FR 5 [id number] *[id number] Used MONITOR TRANSDUCER, TRUWAVE [id number] 11:24 DARLING CAPONE * Used W/STOCKCOCK *[id number] 12:06 BOSTON SCIENTIFIC BALLOON, 2.5 8MM EMERGE MR 2.5 8MM Used *[id number] [id number] *[id number] 538-421 *[id number] *[id number] 11:24 MEDLINE INDUSTRIES PACK, CCL CUSTOM * Used *[id number] 11:24 Graceful Tables PACER PEN, SKIN DUAL W/ RULER * Used *[id number] 12:10 MEDTRONIC STENT, 3.0 18 INTEGRITY 3.0 18 Used *[id number] 12:08 Curious Hat MEDICAL 30 TRAY INDEFLATOR Used *[id number] 11:24 Curious Hat MEDICAL SHEATH, FR5.5 PRELUDE 11CM FR 5.5 Used 038ACT# [id number] 11:57 MERIT MEDICAL SHEATH, FR6.5 PRELUDE 11CM FR 6.5 038ACT Used *[id number] 11:24 Curious Hat MEDICAL WIRE, 3MMJ .035 180CM 180CM Used *[id number] 11:24 NAMIC MANIFOLD, 4 PORT * Used *[id number] 11:24 NYCOMED OMNIPAQUE, 350 MG, 150ML 150ML [id number] Used [id number] 11:24 NOVAK MEDICAL BLANKET,WARM AIR CCL * Used *[id number] 11:24 TERUMO MEDICAL SHEATH, FR4 TERUMO (10CM) FR 4 Used *[id number] Equipment Model, Serial, Lot Number and Expiration Data Description Model Number Serial Number Lot Number Expiration Date BALLOON, 2.5 8MM EMERGE MR [id number] 08-04-2019 SHEATH, FR6.5 PRELUDE 11CM [id number] 07-16-2020 STENT, 3.[address] [place] [address] [id number] 01-10-2019 History: Current Medications Medication Dosage/Unit Route Frequency Last Date/Time Taken Coumadin Beta Dulce Statins (any) History: Allergies Allergy Reaction No Known Allergies History: Risk Factors Family History of Hypertension Dyslipidemia Previous [place] Previous Heart Failure Premature CAD Yes Yes No No Yes Prior Valve Prior PCI Prior CABG Surgery No No No Cerebrovascular Peripheral Artery Chronic Lung On Dialysis Diabetes Diabetes Therapy Disease Disease Disease No No No No Yes Oral History: Symptoms/Diagnosis Selection Items SOB History: Stress Tests Stress or Imaging Studies Performed No History: Other Disease Selection Items HTN History: Other Current Smoker No Labs Hgb (g/dl) Hct (%) RBC (MIL/MM3) WBC (l/cumm) Platelets (thousands) 11.60-17.00 35.00-51.00 4.00-5.90 4.00-11.00 150.00-450.00 12.1 35.6 4.2 6.3 171 Glucose (mg/dl) BUN (mg/dl) Creatinine (mg/dl) BUN:Creatinine (1:x) 74.00-106.00 7.00-18.00 0.50-1.30 10.00-20.00 174 36 1.2 30 Na (meq/l) K (meq/l) Cl (meq/l) CO2 (mmol/L) Ca (mg/dl) 136.00-145.00 3.50-5.10 98.00-107.00 21.00-32.00 8.50-10.10 137 3.8 97 26.5 8.8 PT (sec) INR (PTT:PT) 9.80-11.60 0.90-1.10 22.2 1.9 Troponin I (ng/ml) CPK-MB (ng/ML) 0.02-0.05 0.50-3.60 0.02 Not Drawn Medication Medication Total Dose (Bolus/Oral) Medication Total Dosage/Unit 1% XYLOCAINE 20 mL AGGRASTAT BOLUS 42 meq/kg FENTANYL 12.5 mcg HEPARIN 6000 units PLAVIX 600 mg VERSED 2 mg Medications (Bolus/Oral) Medication Time Given Dosage/Unit Administered By Reason 1% XYLOCAINE 08/12/2017 11:40:04 AM 20 mL Sae Rose 20 mL 1% XYLOCAINE given in lab by Sae Rose in Right Groin via Subcutaneous. VERSED 08/12/2017 11:41:30 AM 2 mg Filipe Coffey RN 2 mg VERSED given in lab by Filipe Coffey RN in Right Antecubital via Peripheral IV. Ordered by Sae Lee. FENTANYL 08/12/2017 11:43:39 AM 12.5 mcg Filipe Coffey RN 12.5 mcg FENTANYL given in lab by Filipe Coffey RN in Right Antecubital via Peripheral IV. Ordered by Sae Rose. HEPARIN 08/12/2017 12:00:41 PM 6000 units Bernadette Whiteside 6000 units HEPARIN given in lab by Bernadette Whiteside RN in Right Antecubital via Peripheral IV. Ordere d by Sae Rose. AGGRASTAT BOLUS 08/12/2017 12:21:41 PM 42 meq/kg Bernadette Whiteside 42 meq/kg AGGRASTAT BOLUS given in lab by Bernadette Whiteside RN via Peripheral IV. Amount given = 3465 meq. Ordered by Sae Rose. PLAVIX 08/12/2017 12:28:04 PM 600 mg Bernadette Whiteside 600 mg PLAVIX given in lab by Bernadette Whiteside RN via Oral. Medication (Drip) Medication Time Given Dosage/Unit Concentration/Unit Diluent (ml) Solution AGGRASTAT DRIP 08/12/2017 12:24:32 PM 0.15 mcg/kg/min 12.5 mg 250 NaCl .9 0.15 mcg/kg/min AGGRASTAT DRIP given in lab by Adamy, Bernadette, RN in Right Antecubital via Periphera l IV. Pump/Drip Flow = 14.85 ml/hr using NaCl .9 with a concentration of 12.5 mg in 250 ml. Ordered by Sae Rose. IV Solutions 08/12/2017 11:08:34 AM 0 mL (IV) 500 NaCl .9 Patient arrived on IV Solutions in Right Antecubital via Peripheral IV. Pump/Drip Flow = 20 ml/hr usi ng NaCl .9. Ordered by Sae Rose. Initial Case Assessment Cardiovascular HR Rhythm NIBP Chest Pain 95 afib 114/78 0 Edema Present Skin color Skin None Normal Warm Dry Circulatory - Right Pulses Dorsalis Pedis Femoral 1 1 Scale (0,1,2,3,4,d) Circulatory - Left Pulses Dorsalis Pedis Femoral 1 1 Scale (0,1,2,3,4,d) Neurological State Oriented to time-place- Alert Moves all extremities person Respiration - General Respiration Rate SpO2 (%) (B/min) 15 95 Final Case Assessment Cardiovascular HR Rhythm NIBP Chest Pain 120 AFib 107/79 0 Edema Present Skin color Skin None Normal Warm Dry Circulatory - Right Pulses Dorsalis Pedis Femoral 1 1 Scale (0,1,2,3,4,d) Circulatory - Left Pulses Dorsalis Pedis Femoral 1 1 Scale (0,1,2,3,4,d) Neurological State Oriented to time-place- Alert Moves all extremities person Respiration - General Respiration Rate SpO2 (%) O2 (lpm) (B/min) 13 97 2 Chronological Log Time Study Chronological Log 11:06:00 Patient arrived via Bed. 11:06:00 Patient Name, D.O.B, / Armband Verified By R.N. 11:06:00 Consent signed by the physician and the patient and verified by the [facility] staff. 11:08:01 Pre-op and post- op instructions given; patient acknowledges understanding of instructions. 11:08:02 Verbal Stimulation=2 Physical Stimulation=2 Airway=2 Respiration=2 TOTAL=8. (0=absent, 1=li mited, 2=present) 11:08:29 Presedation assessment performed by [facility] RN. 11:08:30 Immediate Presedation assesment performed by physician. 11:08:31 Patient has been NPO for More than 6Hrs. 11:08:31 Skin Breakdown- none per patient 11:08:32 Patient Warmer Placed on the Table. 11:08:32 Eric Prominences Protected 11:08:34 A # 20 IV was noted in the Antecubital (right). Grade = 0 Patient arrived on IV Solutions in Right Antecubital via Peripheral IV. Pump/Drip Flow = 20 ml/ hr using NaCl .9. Ordered 11:08:34 by Sae Rose. 11:08:35 History and physical on the chart or being dictated. 11:14:29 Reference ECG taken Vitals capture started with the following parameters, Patient=Adult, Interval=5 min, Initial Pr owflgh=141 mmHg, 11:18:02 Deflation Rate=5 mmHg, Cuff placed on Left Arm 11:18:37 AH=793 bpm, ZOOE=276/84 mmhg, SpO2=96.0 %, Resp=18 B/min, Pain=0, González=10, Drew=2 11:22:48 Bilateral groins prepped with 2% chlorhexidine, and draped after a 3 minute waiting time. 11:23:34 KW=739 bpm, WNLD=036/78 mmhg, SpO2=93.0 %, Resp=20 B/min, Pain=0, González=10, Drew=2 Assessment: Initial Case, HR=95 BPM, Rhythm=afib, GBTV=834/78 mmhg, Chest Pain=0, Edema=None, Color=Normal, Skin = Warm, Dry Right Pulses: Maycol Ped=1, Femoral=1 11:25:32 Left Pulses: Maycol Ped=1, Femoral=1 Neurological: State=Alert, Ox3, COFFMAN Respiration: Resp=15 B/min, SpO2=95 % 11:26:51 Pressure channel 1 zeroed. 11:28:37 FA=923 bpm, NIBP=97/73 mmhg, SpO2=94.0 %, Resp=17 B/min, Pain=0, González=10, Drew=2 11:32:46 MD paged 11:33:32 HR=99 bpm, NIBP=98/75 mmhg, SpO2=92.0 %, Resp=17 B/min, Pain=0, González=10, Drew=2 11:35:30 MD arrived. 11:36:28 Contrast Scanned 11:36:28 Immediate Presedation assesment performed by physician. 11:38:33 OQ=225 bpm, ZZUP=179/78 mmhg, SpO2=94 %, Resp=15 B/min, Pain=0, González=10, Drew=2 Time Out. Correct patient, correct procedure, correct physician, power injector not loaded with contrast with surgical 11:39:54 team present. Time Out Concurred by MD and individual staff in procedure. 11:39:59 Case Start 11:39:59 Verbal Stimulation=2 Physical Stimulation=2 Airway=2 Respiration=2 TOTAL=8. (0=absent, 1=li mited, 2=present) 11:40:04 20 mL 1% XYLOCAINE given in lab by Sae Rose in Right Groin via Subcutaneous. 11:41:30 2 mg VERSED given in lab by Filipe Coffey RN in Right Antecubital via Peripheral IV. Ordered by Sae Rose. 11:41:51 Access site was Right Femoral Artery. 11:42:09 A SHEATH, FR4 TERUMO (10CM) FR 4 was advanced into the Fem Art (right) using the Percutaneo us technique. 11:43:23 Access site was Right Femoral Vein. 11:43:27 A SHEATH, FR5.5 PRELUDE 11CM FR 5.5 was advanced into the Fem Art (right) using the Percuta neous technique. 11:43:34 QV=246 bpm, VCBR=800/78 mmhg, SpO2=95.0 %, Resp=16 B/min 12.5 mcg FENTANYL given in lab by Filipe Coffey RN in Right Antecubital via Peripheral IV. Order ed by Milton, 11:43:39 Sae. 11:43:53 Saturation: Site=Ao (Aorta) , O2=95.3 %, Hgb=12.1 gm/dl, Condition=Condition 1. Used in wyatt culation. 11:44:30 A CATHETER, FR5 SWAN MICHEAL MONITOR FR 5 was inserted via Fem Vein (right) Recorded Pressure: MPA, UC=489, Condition=Condition 1 11:47:09 (Main Pulmonary Artery) MPA 49/32/38 11:47:34 Saturation: Site=PA (Pulmonary Artery) , O2=55.7 %, Hgb=12.1 gm/dl, Condition=Condition 1. Used in calculation. Recorded Pressure: RV, NO=708, Condition=Condition 1 11:48:02 (Right Ventricle) RV 46/13/23 Recorded Pressure: RA, QA=607, Condition=Condition 1 11:48:18 (Right Atrium) RA //16 11:48:35 LU=429 bpm, NIBP=99/73 mmhg, SpO2=92.0 %, Resp=14 B/min, Pain=0, González=10, Drew=2 11:48:53 Saturation: Site=RA (Right Atrium) , O2=59.5 %, Hgb=12.1 gm/dl, Condition=Condition 1. Used in calculation. 11:48:58 [place] Micheal Catheter Removed A JR 4.0 INFINITI CATHETER FR 4 was advanced over a wire. OMNIPAQUE, 350 MG, 150ML 150ML was us ed for 11:48:59 injections. Recorded Pressure: LV, ZD=096, Condition=Condition 1 11:50:07 (Left Ventricle) LV 86/14/22 Recorded Pressure: LV, Ao, LK=606, Condition=Condition 1 11:50:19 (Left Ventricle) LV 87/15/23, (Aorta) Ao 84/65/74 11:50:58 The RCA was injected and visualized at various angles. OMNIPAQUE, 350 MG, 150ML 150ML used . 11:51:50 Catheter was removed A JL 4.0 INFINITI CATHETER FR 4 was advanced over a wire. OMNIPAQUE, 350 MG, 150ML 150ML was us ed for 11:51:50 injections. 11:52:47 The LCA was injected and visualized at various angles. OMNIPAQUE, 350 MG, 150ML 150ML used . 11:53:36 GC=954 bpm, CQPY=993/69 mmhg, SpO2=87.0 %, Resp=12 B/min, Pain=0, González=10, Drew=2 11:57:57 Catheter was removed A SHEATH, FR6.5 PRELUDE 11CM FR 6.5 was exchanged in the Fem Art (right). This was necessary in order to 11:58:34 accomodate a larger catheter. 11:58:38 CU=934 bpm, APAJ=381/72 mmhg, SpO2=95.0 %, Resp=14 B/min, Pain=0, González=10, Drew=2 6000 units HEPARIN given in lab by Bernadette Whiteside, PADILLA in Right Antecubital via Peripheral IV. Ordered by Milton, 12:00:41 Sae. A XB 4.0 GUIDE CATHETER FR 6 was advanced over a wire. OMNIPAQUE, 350 MG, 150ML 150ML was used for 12:01:36 injections. 12:02:43 A WIRE, ASAHI PROWATER 180CM 180CM was inserted via Fem Art (right). 12:03:41 BO=059 bpm, VZYI=347/77 mmhg, SpO2=96.0 %, Resp=12 B/min, Pain=0, González=10, Drew=2 12:03:59 Interventional wire has crossed the lesion 12:04:32 A WIRE, ASAHI PROWATER 180CM 180CM was inserted via Fem Art (right). A BALLOON, 2.5 8MM EMERGE MR 2.5 8MM was inserted over WIRE, ASAHI PROWATER 180CM 180CM via the DIAG 12:07:14 Ost. A BALLOON, 2.5 8MM EMERGE MR 2.5 8MM over a WIRE, ASAHI PROWATER 180CM 180CM in the DIAG Ost wa s 12:07:28 inflated using a 30 TRAY INDEFLATOR at 7 tray for 14 sec. A BALLOON, 2.5 8MM EMERGE MR 2.5 8MM over a WIRE, ASAHI PROWATER 180CM 180CM in the DIAG Ost wa s 12:07:57 inflated using a 30 TRAY INDEFLATOR at 9 tray for 11 sec. A BALLOON, 2.5 8MM EMERGE MR 2.5 8MM over a WIRE, ASAHI PROWATER 180CM 180CM in the DIAG Ost wa s 12:08:31 inflated using a 30 TRAY INDEFLATOR at 9 tray for 9 sec. 12:08:40 HR=98 bpm, NIBP=88/67 mmhg, SpO2=97.0 %, Resp=12 B/min, Pain=0, González=10, Drew=2 12:08:50 Balloon Removed. 12:10:01 Activated Clotting Time Drawn An STENT, 3.0 18 INTEGRITY 3.0 18 Bare Metal Stent was inserted through a XB 4.0 GUIDE CATHETER FR 6 over a 12:11:07 WIRE, ASAHI PROWATER 180CM 180CM. A STENT, 3.0 18 INTEGRITY 3.0 18 was deployed using a 30 TRAY INDEFLATOR at 10 atmospheres for 1 1 seconds in 12:12:05 the LAD Mid. 12:12:31 Re-inflated the stent balloon in the LAD Mid to 14 TRAY for 15 seconds. 12:13:17 Delivery device removed 12:13:24 The LCA was injected and visualized at various angles. OMNIPAQUE, 350 MG, 150ML 150ML used . 12:13:35 IZ=285 bpm, NIBP=98/70 mmhg, SpO2=97.0 %, Resp=12 B/min, Pain=0, González=10, Drew=2 12:14:14 Catheter was removed 12:14:16 Wire removed 12:14:54 Case End 12:15:41 In the Fem Art (right) the SHEATH, FR6.5 PRELUDE 11CM FR 6.[address] by Marilu Javed RT(R) . 12:15:56 No case complications noted. 12:15:59 Cine recording checked. 12:17:53 ACT (Normal Range 90-180) = 328 12:18:38 UU=461 bpm, OXUP=818/79 mmhg, SpO2=97.0 %, Resp=15 B/min, Pain=0, González=10, Drew=2 12:19:11 Sterile dressing applied to site 12:19:25 Bedside Report will be given. 12:19:28 Implantable Device card placed in patient's chart. 12:19:32 A Left and Right Heart Cath was performed. 42 meq/kg AGGRASTAT BOLUS given in lab by Bernadette Whiteside, PADILLA via Peripheral IV. Amount given = 3465 meq. 12:21:41 Ordered by Sae Rose. Assessment: Final Case, CW=688 BPM, Rhythm=AFib, FLRT=926/79 mmhg, Chest Pain=0, Edema=None, Color=Normal, Skin = Warm, Dry Right Pulses: Maycol Ped=1, Femoral=1 12:22:30 Left Pulses: Maycol Ped=1, Femoral=1 Neurological: State=Alert, Ox3, COFFMAN Respiration: Resp=13 B/min, SpO2=97 %, O2=2 lpm 12:23:39 DT=006 bpm, FJFS=966/87 mmhg, SpO2=97.0 %, Resp=16 B/min, Pain=0, González=10, Drew=2 0.15 mcg/kg/min AGGRASTAT DRIP given in lab by Bernadette Whiteside, RN in Right Antecubital via Pe ripheral IV. 12:24:32 Pump/Drip Flow = 14.85 ml/hr using NaCl .9 with a concentration of 12.5 mg in 250 ml. Ordered by Sae Rose. 12:28:04 600 mg PLAVIX given in lab by Bernadette Whiteside, RN via Oral. 12:28:40 CD=516 bpm, DKYV=019/88 mmhg, SpO2=97.0 %, Resp=11 B/min, Pain=0, González=10, Drew=2 12:33:22 Vitals capture stopped. 12:34:[address] [facility] End Study - Contrast Media Used In Study Contrast Total Opened (mL) Total Used (mL) Total Wasted (mL) Omnipaque 150 125 25 End Study - Maximum Contrast Load Max Contrast Load (mL) 343.8 End Study - Radiation Exposure Fluoro Time (minutes) 8.4 End Study - Patient Disposition Complications Transferred To Interventional Outcome No Telemetry Bed successful
[2017-08-12] MEDS ORDERED: MISC INFORMATION XX ONE (12:45)
[2017-08-12] MEDS ORDERED: SODIUM CHLORIDE 0.9% FLUSH 10 ML FLUSH IV FLUSH PRN (12:45)
[2017-08-12] MEDS ORDERED: FUROSEMIDE 40 MG/4 ML VIAL ONE (12:45)
[2017-08-12] MEDS ORDERED: IOHEXOL 350 MG/ML 50 ML BTL (for Cath Lab) OTHER ONE (12:47)
[2017-08-12] MEDS ORDERED: IOHEXOL 350 MG/ML 100 ML BTL (for Cath Lab) OTHER ONE (12:47)
--- NOTE | 2017-08-12 13:18 | MA ---
cc: Sae Rose MD DATE: 08/12/2017 PROCEDURE PERFORMED: 1. Right heart catheterization 2. Left heart catheterization. 3. Left ventriculography. 4. Coronary angiography. 5. PTCA of the ostial proximal second diagonal artery and direct PCI with bare metal stent of the mid LAD. INDICATIONS: Cardiomyopathy, decompensated congestive heart failure, [place] Heart Association class IV congestive heart failure, anginal equivalent unstable angina, [place] [employer] class IV angina, resting dyspnea. DESCRIPTION OF PROCEDURE: The patient was brought to the cardiac catheterization laboratory, prepped and draped in the usual sterile fashion. 10 mL of 1% lidocaine was used to locally anesthetize the right common femoral artery. A 4-[place] sheath placed in the right common femoral artery. A 5-1/2 [place] sheath was placed in the right common femoral vein. Right heart catheterization was performed first with the following findings: The pulmonary capillary wedge pressure was unobtainable as I could not wedge the balloon into the wedge position, most likely due to high PA pressures and enlarged right ventricle and right atrium. PA pressure was 49/32-38. RV pressure 46/13-23. RA pressure 22/18-16. On 2 liters nasal cannula: The femoral artery sat was 95.3%. PA sat 55.7%. RA sat 59.5%. By Peggy, the cardiac output is 3.7 liters per minute. Cardiac index is 1.9 liters per minute per square per minute. SVR is 1259.8 Dynes. Left heart catheterization was then performed with a 4-[place] JR4 and JL4 catheter with the following findings: LV pressures 90/20-22 ejection fraction 20%. The left ventricle appears to be markedly dilated fluoroscopically. The right coronary artery is dominant. There is moderate diffuse disease in the mid segment up to 50% angiographically. Reference vessel diameter in the proximal segment is 3.25 mm. Reference vessel in the mid to distal segment is probably 225-2.5 mm in diameter. The left main coronary artery has no significant disease angiographically. The left circumflex vessel has no significant disease angiographically. The first obtuse marginal vessel is a small to medium size vessel with a reference vessel diameter of 2 mm with a proximal 40-50% stenosis. The second obtuse marginal vessel comes off the proximal AV groove left circ. Reference vessel diameter 2.5 mm in diameter with mild diffuse disease up to 20% angiographically. The third obtuse marginal vessel comes off the mid AV groove left circumflex vessel. It is a small vessel 1 mm reference vessel diameter. No significant obstructive disease angiographically. There is a distal posterolateral artery, which is a 3.0 reference vessel diameter vessel with no significant obstructive disease. The left circumflex vessel terminates into 2 small 0.5 mm posterolateral arteries with no significant obstructive disease. The LAD is transapical and has a 90% mid stenosis at the bifurcation with a medium size second diagonal artery. At this lesion site, the second diagonal artery has an ostial 60-70% stenosis. Reference vessel diameter of this vessel is probably at least 2.5 mm. The first diagonal artery has no significant obstructive disease. Reference vessel diameter 2.5 mm in diameter. As the patient has resting dyspnea with lower extremity edema, deep compensated congestive heart failure is [place] Heart Association class IV with anginal equivalent and [place] [employer] class IV angina, I did think it was medically necessary to perform revascularization of the mid LAD, ostial second diagonal artery to help improve contractility and patient's symptoms. Therefore, a 4-[place] sheath will be exchanged for the 6-[place], 70 units per kilo of heparin was given ACT 328. A 6-[place] XB 4.0 guide 0.014 [place] guidewire was placed into the second diagonal artery. A second 0.014 [place] guidewire was placed into the distal LAD. The ostial second diagonal artery was dilated with a 2.58 Emerge balloon with two inflations of up to 9 atmospheres up to 20 seconds. The stenosis went from 60% to residual 20%. We then placed a 3.0 x 18 Integrity stent into the mid LAD. Initially we deployed the stent with one inflation to 12 atmospheres for 20 seconds. The proximal segment of the stent was under deployed. I did not move the stent balloon. We reinflated the stent balloon to 14 atmospheres. This resulted in a much improved expansion of the proximal segment of the stent. The stenosis went from 90% to 0% with TEREZA-3 flow. There was no compromise in vessel diameter of the ostial diagonal vessel and flow was TEREZA 3 into the diagonal vessel. CONCLUSIONS: 1. Cardiomyopathy, [place] Heart Association class IV, congestive heart failure, anginal equivalent with [place] [employer] class IV angina, decompensated congestive heart failure, possible culprit 90% mid LAD at a bifurcation with a medium size diagonal vessel, which has a 60-70% ostial lesion as detailed above. 2. Ejection fraction 20%. 3. Moderate to severe left ventricular enlargement. 4. Successful PTCA of the ostial second diagonal artery from 70% to a residual 20%. 5. Successfully direct PCI bare metal stent of the mid LAD from 90% to 0% with TEREZA-3 flow. 6. Recommend Plavix 600 mg p.o. load and then 75 mg a day for 12-15 months, aspirin 162 mg daily. As long as the patient's hemodynamics platelet count and hemoglobin are stable, we will reinitiate Coumadin, as well as the patient actually is in atrial fibrillation. Continue at diuresis. Follow up BMP, up-titrate beta margarita, SIMON inhibitors as much as clinically and hemodynamically tolerated. I also recommend consideration for heart transplant. The patient will have case management assist in proceeding with that evaluation. Sae Rose MD AWC/DL , 12:37 PM , 01:17 PM
[2017-08-12] MEDS ORDERED: CLOPIDOGREL 300 MG TAB PO ONE (14:00)
--- NOTE | 2017-08-12 14:25 | HHI.PR ---
Subjective Remarks feeling ok Objective Vital Signs Date Time Temp Pulse Resp B/P (MAP) Pulse Ox O2 Delivery O2 Flow Rate FiO2 08/12/17 12:57 92 Nasal Cannula 2.00 08/12/17 09:34 Room Air 08/12/17 08:00 97.4 106 18 106/71 (83) 95 08/12/17 08:00 113 08/12/17 04:00 97.4 108 18 102/70 (81) 94 08/12/17 04:00 113 08/12/17 00:00 114 08/12/17 00:00 97.9 127 20 112/77 (89) 96 08/11/17 20:00 97.5 110 18 118/74 (89) 98 08/11/17 20:00 128 08/11/17 20:00 Room Air 08/11/17 16:46 96 Room Air 08/11/17 15:30 96.1 101 20 92/61 (71) 96 08/11/17 15:00 115 I/O 08/11/17 08/11/17 08/11/17 08/12/17 08/12/17 08/12/17 07:00 15:00 23:00 07:00 15:00 23:00 Intake Total 240 ml 500 ml 120 ml Output Total 600 ml 750 ml Balance 240 ml -600 ml -250 ml 120 ml Intake Oral 240 ml 500 ml 120 ml Output Urine Total 600 ml 750 ml # Voids 2 3 1 # Bowel Movements 0 Result Diagram: 08/12/17 0520 08/12/17 0520 Imaging Alert, fully oriented lungs: lungs ventilated Heart: s1, S2 regular, no gallop Abdomen: soft, no mass Ext: no edema Last Impressions Chest X-Ray 08/10/17 0600 Signed Impressions: Service Date/Time: Thursday, August 10, 2017 05:54 - CONCLUSION: 1. Cardiomegaly with right basilar airspace disease and pleural effusion similar to prior study. Minimal left basilar atelectasis. Rah Meyer MD Current Medications Medications (Trade) Dose Ordered Sig/Tony Route Start Time Stop Time Status Last Admin (Lopressor Inj) 5 mg Q5M PRN IV PUSH 08/08/17 01:30 (NS Flush) 2 ml BID IV FLUSH 08/08/17 09:00 08/12/17 08:46 (D50w (Vial) Inj) 50 ml UNSCH PRN IV PUSH 08/08/17 01:45 (Glucagon Inj) 1 mg UNSCH PRN OTHER 08/08/17 01:45 (NovoLOG SUPPLEMENTAL SCALE) 1 ACHS SLIDING SCALE SQ 08/08/17 08:00 08/11/17 22:10 (CeleXA) 20 mg DAILY PO 08/08/17 09:00 08/12/17 08:46 (Synthroid) 37.5 mcg DAILY@0600 PO 08/08/17 09:00 08/12/17 06:04 (Tylenol) 650 mg Q4H PRN PO 08/08/17 12:00 08/08/17 23:07 (Atrovent Neb) 0.5 mg Q4HR NEB PRN NEB 08/08/17 23:45 08/09/17 00:06 (Levemir Inj) 15 units HS SQ 08/09/17 21:00 08/10/17 21:47 (Lasix) 40 mg BID@09,18 PO 08/09/17 18:00 08/12/17 08:46 Azithromycin 500 mg/Sodium Chloride 250 ml @ 250 mls/hr Q24H IV 08/09/17 16:00 08/11/17 16:36 Ceftriaxone Sodium 1000 mg/ Sodium Chloride 100 ml @ 200 mls/hr Q24H IV 08/09/17 17:00 08/11/17 16:35 (Tessalon) 200 mg TID PRN PO 08/09/17 15:15 08/12/17 06:04 (Coreg) 6.25 mg BID PO 08/09/17 21:00 08/12/17 08:46 (Mag-Ox) 400 mg BID@1100,2300 PO 08/10/17 23:00 08/12/17 01:00 (KCl) 20 meq Q12HR PO 08/11/17 10:15 08/12/17 08:43 (NS Flush) 2 ml UNSCH PRN IV FLUSH 08/12/17 12:45 (NS Flush) 2 ml BID IV FLUSH 08/12/17 21:00 (Aspirin Chew) 162 mg DAILY PO 08/13/17 09:00 (Plavix) 75 mg DAILY PO 08/13/17 09:00 Tirofiban/Sodium Chloride 250 ml @ 14.85 mls/ hr [id number] IV 08/12/17 12:40 08/13/17 06:39 (Altace) 2.5 mg DAILY PO 08/13/17 09:00 (Lipitor) 10 mg HS PO 08/12/17 21:00 Assessment and Plan Problem List: (1) Congestive heart failure (CHF) ICD Codes: I50.9 - Congestive heart failure (CHF) Status: Acute Plan: Ischemic cardiomyopathy. PTCA plus bare metal stent to LAD by Dr Rose. Feeling ok (2) Cardiomyopathy ICD Codes: I42.9 - Cardiomyopathy Status: Acute Plan: On adequate heart failure management Recent PTCA Will need a defib vest before DH Repeat echo in 60 days. If EF still low then defib will be considered. Case discussed with patient and Ritesh Domínguez MD Aug 12, 2017 14:25
--- NOTE | 2017-08-12 15:13 | HHI.PR ---
Subjective Remarks F/U CAD. Tolerated cath results dw pt, . Case dw cards Objective Vitals Vital Signs Date Time Temp Pulse Resp B/P (MAP) Pulse Ox O2 Delivery O2 Flow Rate FiO2 08/12/17 12:57 92 Nasal Cannula 2.00 08/12/17 09:34 Room Air 08/12/17 08:00 97.4 106 18 106/71 (83) 95 08/12/17 08:00 113 08/12/17 04:00 97.4 108 18 102/70 (81) 94 08/12/17 04:00 113 08/12/17 00:00 114 08/12/17 00:00 97.9 127 20 112/77 (89) 96 08/11/17 20:00 97.5 110 18 118/74 (89) 98 08/11/17 20:00 128 08/11/17 20:00 Room Air 08/11/17 16:46 96 Room Air 08/11/17 15:30 96.1 101 20 92/61 (71) 96 I/O 08/11/17 08/11/17 08/11/17 08/12/17 08/12/17 08/12/17 07:00 15:00 23:00 07:00 15:00 23:00 Intake Total 240 ml 500 ml 120 ml Output Total 600 ml 750 ml Balance 240 ml -600 ml -250 ml 120 ml Intake Oral 240 ml 500 ml 120 ml Output Urine Total 600 ml 750 ml # Voids 2 3 1 # Bowel Movements 0 Result Diagram: 08/12/17 0520 08/12/17 0520 Imaging Last Impressions Chest X-Ray 08/10/17 0600 Signed Impressions: Service Date/Time: Thursday, August 10, 2017 05:54 - CONCLUSION: 1. Cardiomegaly with right basilar airspace disease and pleural effusion similar to prior study. Minimal left basilar atelectasis. Rah Meyer MD Objective Remarks GENERAL: Well-nourished, well-developed male patient in [facility]. SKIN: Warm and dry. No rash. CARDIOVASCULAR: Irregular rate and rhythm. No murmur appreciated. RESPIRATORY: No accessory muscle use. Crackles at the bases. GASTROINTESTINAL: Abdomen soft, non-tender, nondistended. Normoactive bowel sounds x4. MUSCULOSKELETAL: No obvious deformities. 1-2+ bilateral lower extremity pitting edema. NEUROLOGICAL: Awake and alert. No obvious cranial nerve deficits. Motor grossly within normal limits. Normal speech. PSYCHIATRIC: Appropriate mood and affect; insight and judgment normal. Procedures cardiac cath A/P Problem List: (1) Cardiomyopathy ICD Code: I42.9 - Cardiomyopathy Status: Acute (2) Congestive heart failure (CHF) ICD Code: I50.9 - Congestive heart failure (CHF) Status: Acute Assessment and Plan 61-year-old male with a past medical history significant for CHF, diabetes mellitus, hypertension, hyperlipidemia and bipolar disorder presents with 4-5 day history of shortness of breath, cough, and leg swelling. CAD s/p cath PTCA to diag and BMS to LAD. Ct asa, plavix, BB and statin . Currently on Aggrastat Acute Systolic CHF Exacerbation: presented with SOB/BUENO/orthopnea/BLE edema. EMR reviewed, last echo on file Mar 2014 with EF 30-35%. BNP elevated at 237. Chest x-ray shows right airspace disease. Repeat Echo with EF < 20%. - Continue diuresis, change Lasix to 40mg IV bid, caution with renal insufficiency - Fluid restrictions - Monitor Is & Os - Continue patient's BB and Danny. Ideally entresto but no payor source - follow up with cardiology. Life vest before dc CAP CXR suggestive of right sided PNA. Pt has cough. - stable switch to po azithromycin and ceftin rpt cxr in 6 weeks - Tessalon Perles as needed. - encourage ambulation. - IS. GARCÍA Cr 1.66, previously 0.67 in 2014. Possibly secondary to recently increased Lasix dose. Improving. - continue diuresis and monitor renal function - avoid nephrotoxins - repeat BMP in am Atrial fibrillation/flutter with RVR. Anticoagulated on Coumadin currently on hold resume when ok by card - continue patient's Coreg, increase to 6.25 mg BID if tolerates. - Monitor on telemetry - cardiology following. Diabetes mellitus Chronic. - Holding home oral anti-hyperglycemics - Monitor Accu-checks and cover with SSI - added long acting insulin. Hypertension/hyperlipidemia: chronic -continue home meds including statin, coreg and ramipril -monitor BP, adjust antihypertensives as needed Hyponatremia Likely s/t diuresis. - monitor BMP. DVT Prophylaxis: holding chemoprophylaxis currently on Aggrastat Discharge Planning per Frederick Chau MD Aug 12, 2017 15:13
[2017-08-12] MEDS: AZITHROMYCIN 250 MG TAB PO SCH (16:27)
[2017-08-12] MEDS: FUROSEMIDE 40 MG/4 ML VIAL IV PUSH SCH (16:28)
[2017-08-12] MEDS: ATORVASTATIN 10 MG TAB PO SCH (21:49)
[2017-08-12] MEDS: CEFUROXIME AXETIL 500 MG TAB PO SCH (21:50)
[2017-08-12] MEDS: INSULIN DETEMIR 100 UNITS/ML VIAL SQ SCH (21:52)
[2017-08-12] MEDS: ACETAMINOPHEN 325 MG TAB PO PRN (21:56)
--- NOTE | 2017-08-12 23:33 | EKG ---
Date Performed: 08/12/2017 Time Performed: 15:53:10 PTAGE: 61 years EKG: Atrial flutter with rapid ventricular response. Indeterminate axis IV conduction defect Poo r R wave progression - probable normal variant Inferior/lateral ST-T changes are nonspecific Low QRS voltages in limb leads Abnormal ECG Since the PREVIOUS TRACING , no significant change noted DOCTOR: Kalpesh Cramer Interpretating Date/Time 08/12/2017 23:31:27
[2017-08-13] VITALS (33 sets, daily range): BP systolic 96–113; BP diastolic 67–83; PULSE 76–125; RESP 16–17; TEMP 98–98.7; O2SAT 96–98
[2017-08-13] MEDS: TIROFIBAN INFUSION INJ 250 ML IV SCH ×2 (01:55→05:31)
[2017-08-13 04:23] LABS: AUTOMATED NEUTROPHIL # 5.7 TH/MM3 (1.8-7.7); BASOPHIL % 0.5 % (0.0-2.0); EOSINOPHIL % 0.7 % (0.0-4.0); HEMATOCRIT 37.2 % (39.0-51.0); HEMOGLOBIN 12.5 GM/DL (13.0-17.0); LYMPH % 8.4 % (9.0-44.0); LYMPHOCYTE # 0.6 TH/MM3 (1.0-4.8); MEAN CELL VOLUME 90.1 FL (80.0-100.0); MEAN CORPUSCULAR HEMOGLOBIN 30.3 PG (27.0-34.0); MEAN CORPUSCULAR HGB CONC 33.7 % (32.0-36.0); MEAN PLATELET VOLUME 8.6 FL (7.0-11.0); MONO % 7.3 % (0.0-8.0); MONOCYTE # 0.5 TH/MM3 (0-0.9); NEUT % 83.1 % (16.0-70.0); PLATELET COUNT 205 TH/MM3 (150-450); RED BLOOD COUNT 4.13 MIL/MM3 (4.50-5.90); WHITE BLOOD COUNT 6.9 TH/MM3 (4.0-11.0)
[2017-08-13 04:52] LABS: BICARBONATE 28.4 MEQ/L (21.0-32.0); CALCIUM 8.6 MG/DL (8.5-10.1); CREATININE 1.28 MG/DL (0.60-1.30); MAGNESIUM 2.2 MG/DL (1.5-2.5)
[2017-08-13] MEDS: LEVOTHYROXINE SODIUM 25 MCG TAB PO SCH (06:37)
[2017-08-13] MEDS: BENZONATATE 100 MG CAP PO PRN ×3 (06:37→23:27)
--- NOTE | 2017-08-13 08:44 | HHI.PR ---
Subjective Remarks Patient seen and examined this morning. Vitals are stable although intermittent tachycardia overnight. Sates he cannot sleep for more than short period of time because he begins to feel short of breath. He denies having active chest pain. He is able to walk to the restroom is without symptoms. He reports feeling nervous about his heart. He wants to know if he can have a heart transplant if he would be a candidate. Objective Vital Signs Date Time Temp Pulse Resp B/P (MAP) Pulse Ox O2 Delivery O2 Flow Rate FiO2 08/13/17 06:00 76 08/13/17 05:00 96 08/13/17 04:00 104 08/13/17 03:30 98 16 110/83 (92) 97 08/13/17 03:00 110 08/13/17 02:00 104 08/13/17 01:00 98 08/13/17 00:00 96 08/12/17 23:00 103 08/12/17 23:00 102 16 102/75 (84) 95 08/12/17 22:00 124 08/12/17 21:00 100 08/12/17 20:00 97.0 108 16 102/78 (86) 97 08/12/17 20:00 97 Room Air 08/12/17 20:00 110 08/12/17 19:00 112 08/12/17 15:00 98.0 125 17 99/72 (81) 96 08/12/17 12:57 92 Nasal Cannula 2.00 08/12/17 09:34 Room Air I/O 08/12/17 08/12/17 08/12/17 08/13/17 08/13/17 08/13/17 07:00 15:00 23:00 07:00 15:00 23:00 Intake Total 120 ml 240 ml 556.7 ml Output Total 500 ml Balance 120 ml -260 ml 556.7 ml Intake Oral 120 ml 240 ml 240 ml IV Total 316.7 ml Output Urine Total 500 ml # Voids 3 1 1 # Bowel Movements 0 0 Result Diagram: 08/13/17 0323 08/13/17 0323 Imaging Last Impressions Chest X-Ray 08/10/17 0600 Signed Impressions: Service Date/Time: Thursday, August 10, 2017 05:54 - CONCLUSION: 1. Cardiomegaly with right basilar airspace disease and pleural effusion similar to prior study. Minimal left basilar atelectasis. Rah Meyer MD Objective Remarks GENERAL: Tired appearing, no acute distress SKIN: Warm and dry. HEAD: Normocephalic. EYES: No scleral icterus. No injection or drainage. NECK: Supple, trachea midline. No JVD or lymphadenopathy. CARDIOVASCULAR: Irregular rhythm without murmurs, gallops, or rubs. RESPIRATORY: Breath sounds equal bilaterally. No accessory muscle use. GASTROINTESTINAL: Abdomen soft, non-tender, nondistended. MUSCULOSKELETAL: No cyanosis, or edema. A/P Problem List: (1) Diabetes mellitus ICD Code: E11.9 - Diabetes mellitus Status: Acute (2) Atrial fibrillation ICD Code: I48.91 - Atrial fibrillation Status: Acute (3) Hypothyroid ICD Code: E03.9 - Hypothyroidism Status: Acute (4) Congestive heart failure (CHF) ICD Code: I50.9 - Congestive heart failure (CHF) Status: Acute (5) Cardiomyopathy ICD Code: I42.9 - Cardiomyopathy Status: Acute Assessment and Plan In summary this is a 61-year-old male patient with medical history significant for CHF, diabetes, hypertension, hyperlipidemia and bipolar disease who presented to [facility] with a four-day history of shortness of breath. Ischemic cardiomyopathy Coronary artery disease s/p cath by Dr. Rose PTCA to diag and BMS to LAD. Ct asa, plavix, BB and statin . Echo 08/10/2017 shows systolic function of 20%, per Dr. cohen repeat echo in 60 days, FEF still low then defibrillator will be considered. Medical management: Lasix 40 mg twice daily, carvedilol 6.25 mg twice daily, statin, ramipril 2.5 mg daily Community-acquired pneumonia Currently on azithromycin and Ceftin 08/09 (anticipate 7 day course) AK I -Improving, continue to monitor and renally dose all meds A. fib with RVR Heart rate currently stable metoprolol is available as needed Diabetes Levemir 15 units at bedtime, sliding scale Hypertension BP stable continue SIMON inhibitor and carvedilol Hyperlipidemia Continue statin Hypothyroidism Continue 37.5 mcg of levothyroxine daily Discharge Planning Discharge is pending cardiac clearance. Umu Rivero MD Aug 13, 2017 08:44
[2017-08-13] MEDS: FUROSEMIDE 40 MG/4 ML VIAL IV PUSH SCH ×2 (08:45→18:04)
[2017-08-13] MEDS: RAMIPRIL 2.5 MG CAP PO SCH (08:45)
[2017-08-13] MEDS: AZITHROMYCIN 250 MG TAB PO SCH (08:45)
[2017-08-13] MEDS: ASPIRIN 81 MG CHEW TAB PO SCH (08:45)
[2017-08-13] MEDS: CLOPIDOGREL 75 MG TAB PO SCH (08:46)
[2017-08-13] MEDS: CITALOPRAM HYDROBROMIDE 20 MG TAB PO SCH (08:46)
[2017-08-13] MEDS: CARVEDILOL 3.125 MG TAB PO SCH ×2 (08:46→21:25)
[2017-08-13] MEDS: POTASSIUM CHLORIDE 20 MEQ CONTROLLED RELEASE TAB PO SCH ×2 (08:46→21:27)
[2017-08-13] MEDS: SODIUM CHLORIDE 0.9% FLUSH 10 ML FLUSH IV FLUSH SCH ×4 (08:47→21:28)
[2017-08-13] MEDS: INSULIN ASPART SUPPLEMENTAL SCALE SQ SCH ×4 (08:47→21:29)
[2017-08-13] MEDS: CEFUROXIME AXETIL 500 MG TAB PO SCH ×2 (09:38→21:27)
--- NOTE | 2017-08-13 10:21 | EKG ---
Date Performed: 08/13/2017 Time Performed: 05:02:32 PTAGE: 61 years EKG: Atrial flutter Indeterminate axis IV conduction defect Possible lateral infarct - age undet ermined Possible anterior infarct - age undetermined Inferior T wave changes are nonspecific Low QRS voltages in limb leads Abnormal ECG Since the PREVIOUS TRACING , no significant change noted DOCTOR: Kalpesh Cramer Interpretating Date/Time 08/13/2017 10:18:58
[2017-08-13] MEDS: MAGNESIUM OXIDE 400 MG TAB PO SCH ×2 (12:43→21:26)
[2017-08-13] MEDS ORDERED: DIGOXIN 0.5 MG/2 ML VIAL IV PUSH ONE (14:00)
[2017-08-13] MEDS ORDERED: SPIRONOLACTONE 25 MG TAB PO ONE (14:00)
[2017-08-13] MEDS ORDERED: WARFARIN SOD 5 MG TAB PO ONE (14:15)
[2017-08-13] MEDS ORDERED: ENOXAPARIN SODIUM 80 MG/0.8 ML SYRINGE SQ SCH (14:30)
[2017-08-13] MEDS ORDERED: SPIRONOLACTONE 25 MG TAB PO SCH (18:00)
[2017-08-13] MEDS: ENOXAPARIN SODIUM 80 MG/0.8 ML SYRINGE SQ SCH (18:09)
--- NOTE | 2017-08-13 19:38 | PD.CARD.PN ---
Subjective Subjective Remarks feels "alot" better Objective Medications Current Medications Medications (Trade) Dose Ordered Sig/Tony Route Start Time Stop Time Status Last Admin (Lopressor Inj) 5 mg Q5M PRN IV PUSH 08/08/17 01:30 (NS Flush) 2 ml BID IV FLUSH 08/08/17 09:00 08/13/17 08:47 (D50w (Vial) Inj) 50 ml UNSCH PRN IV PUSH 08/08/17 01:45 (Glucagon Inj) 1 mg UNSCH PRN OTHER 08/08/17 01:45 (NovoLOG SUPPLEMENTAL SCALE) 1 ACHS SLIDING SCALE SQ 08/08/17 08:00 08/13/17 18:04 (CeleXA) 20 mg DAILY PO 08/08/17 09:00 08/13/17 08:46 (Synthroid) 37.5 mcg DAILY@0600 PO 08/08/17 09:00 08/13/17 06:37 (Tylenol) 650 mg Q4H PRN PO 08/08/17 12:00 08/12/17 21:56 (Atrovent Neb) 0.5 mg Q4HR NEB PRN NEB 08/08/17 23:45 08/09/17 00:06 (Levemir Inj) 15 units HS SQ 08/09/17 21:00 08/12/17 21:52 (Tessalon) 200 mg TID PRN PO 08/09/17 15:15 08/13/17 18:02 (Coreg) 6.25 mg BID PO 08/09/17 21:00 08/13/17 08:46 (Mag-Ox) 400 mg BID@1100,2300 PO 08/10/17 23:00 08/13/17 12:43 (KCl) 20 meq Q12HR PO 08/11/17 10:15 08/13/17 08:46 (NS Flush) 2 ml UNSCH PRN IV FLUSH 08/12/17 12:45 (NS Flush) 2 ml BID IV FLUSH 08/12/17 21:00 (Aspirin Chew) 162 mg DAILY PO 08/13/17 09:00 08/13/17 08:45 (Plavix) 75 mg DAILY PO 08/13/17 09:00 08/13/17 08:46 (Altace) 2.5 mg DAILY PO 08/13/17 09:00 08/13/17 08:45 (Lipitor) 10 mg HS PO 08/12/17 21:00 08/12/17 21:49 (Lasix Inj) 40 mg BID@ IV PUSH 08/12/17 18:00 08/13/17 18:04 (Ceftin) 500 mg Q12HR PO 08/12/17 21:00 08/15/17 20:59 08/13/17 09:38 (Zithromax) 250 mg DAILY PO 08/12/17 15:00 08/14/17 14:59 08/13/17 08:45 (Robitussin Ac 200-20 Mg/10 ml Liq) 5 ml Q4H PRN PO 08/12/17 19:15 (Aldactone) 25 mg BID@ PO 08/13/17 18:00 08/13/17 18:02 (Lovenox Inj) 80 mg Q12HR SQ 08/13/17 18:00 08/13/17 18:09 Vital Signs / I&O Vital Signs Date Time Temp Pulse Resp B/P (MAP) Pulse Ox O2 Delivery O2 Flow Rate FiO2 08/13/17 18:00 98 08/13/17 17:35 98 21 08/13/17 17:00 108 08/13/17 16:00 82 08/13/17 15:05 98.5 114 16 106/75 (85) 98 08/13/17 15:00 111 08/13/17 14:00 82 08/13/17 13:00 110 08/13/17 12:25 110 17 96/72 (80) 97 08/13/17 12:00 104 08/13/17 11:41 96 08/13/17 11:30 98.2 08/13/17 11:00 99 08/13/17 10:00 124 08/13/17 09:00 124 08/13/17 08:00 96 08/13/17 07:36 99 08/13/17 07:30 98.0 125 17 105/78 (87) 96 08/13/17 07:30 93 Room Air 08/13/17 06:00 76 08/13/17 05:00 96 08/13/17 04:00 104 08/13/17 03:30 98 16 110/83 (92) 97 08/13/17 03:00 110 08/13/17 02:00 104 08/13/17 01:00 98 08/13/17 00:00 96 08/12/17 23:00 103 08/12/17 23:00 102 16 102/75 (84) 95 08/12/17 22:00 124 08/12/17 21:00 100 08/12/17 20:00 97.0 108 16 102/78 (86) 97 08/12/17 20:00 97 Room Air 08/12/17 20:00 110 I/O 08/12/17 08/12/17 08/12/17 08/13/17 08/13/17 08/13/17 07:00 15:00 23:00 07:00 15:00 23:00 Intake Total 120 ml 240 ml 556.7 ml 720 ml Output Total 500 ml 1200 ml Balance 120 ml -260 ml 556.7 ml -480 ml Intake Oral 120 ml 240 ml 240 ml 720 ml IV Total 316.7 ml Output Urine Total 500 ml 1200 ml # Voids 3 1 1 # Bowel Movements 0 0 1 Laboratory GENERAL: SKIN: Warm and dry. HEAD: Normocephalic. EYES: No scleral icterus. No injection or drainage. NECK: Supple, trachea midline. No JVD or lymphadenopathy. CARDIOVASCULAR: Regular rate and rhythm without murmurs, gallops, or rubs. RESPIRATORY: Breath sounds equal bilaterally. No accessory muscle use. GASTROINTESTINAL: Abdomen soft, non-tender, nondistended. MUSCULOSKELETAL: No cyanosis, or edema. BACK: Nontender without obvious deformity. No CVA tenderness. Laboratory Tests Test 08/13/17 03:23 White Blood Count 6.9 TH/MM3 Red Blood Count 4.13 MIL/MM3 Hemoglobin 12.5 GM/DL Hematocrit 37.2 % Mean Corpuscular Volume 90.1 FL Mean Corpuscular Hemoglobin 30.3 PG Mean Corpuscular Hemoglobin Concent 33.7 % Red Cell Distribution Width 16.0 % Platelet Count 205 TH/MM3 Mean Platelet Volume 8.6 FL Neutrophils (%) (Auto) 83.1 % Lymphocytes (%) (Auto) 8.4 % Monocytes (%) (Auto) 7.3 % Eosinophils (%) (Auto) 0.7 % Basophils (%) (Auto) 0.5 % Neutrophils # (Auto) 5.7 TH/MM3 Lymphocytes # (Auto) 0.6 TH/MM3 Monocytes # (Auto) 0.5 TH/MM3 Eosinophils # (Auto) 0.0 TH/MM3 Basophils # (Auto) 0.0 TH/MM3 CBC Comment DIFF FINAL Differential Comment Blood Urea Nitrogen 34 MG/DL Creatinine 1.28 MG/DL Random Glucose 307 MG/DL Calcium Level 8.6 MG/DL Magnesium Level 2.2 MG/DL Sodium Level 137 MEQ/L Potassium Level 4.3 MEQ/L Chloride Level 100 MEQ/L Carbon Dioxide Level 28.4 MEQ/L Anion Gap 9 MEQ/L Estimat Glomerular Filtration Rate 57 ML/MIN Total Creatine Kinase 40 U/L B-Type Natriuretic Peptide 862 PG/ML Assessment and Plan Problem List: (1) CAD (coronary artery disease) ICD Codes: I25.10 - Atherosclerotic heart disease of [place] coronary artery without angina pectoris (2) Left bundle branch block ICD Codes: I44.7 - Left bundle branch block Status: Acute (3) Renal insufficiency ICD Codes: N28.9 - Renal insufficiency Status: Acute (4) Cardiomyopathy ICD Codes: I42.9 - Cardiomyopathy Status: Acute (5) Atrial fibrillation ICD Codes: I48.91 - Atrial fibrillation Status: Acute (6) Congestive heart failure (CHF) ICD Codes: I50.9 - Congestive heart failure (CHF) Status: Acute (7) Diabetes mellitus ICD Codes: E11.9 - Diabetes mellitus Status: Acute Code Status 1.) Cardiomyopathy - significant improvement after pci, dig, and aldactone added , continue lasix, lisinopril and coreg, f/u bnp, bmp; eval for life vest, case management consulted for eligibility for heart transplant referral 2.) CAD - pod# 1 bms mid lad, clinically improved, continue aspirin, plavix, lipitor 3.) Afib - iv dig given, continue coreg, restart coumadin, lovenox bridge Sae Rose MD Aug 13, 2017 19:38
[2017-08-13] MEDS: ATORVASTATIN 10 MG TAB PO SCH (21:25)
[2017-08-13] MEDS: INSULIN DETEMIR 100 UNITS/ML VIAL SQ SCH (21:28)
[2017-08-14] VITALS (32 sets, daily range): BP systolic 85–121; BP diastolic 55–73; PULSE 62–107; RESP 16–18; TEMP 97–98; O2SAT 95–97
[2017-08-14] MEDS: guaiFENesin/CODEINE SYRUP 200 MG/20 MG/10 ML CUP PO PRN ×2 (01:16→23:41)
[2017-08-14 04:32] LABS: HEMATOCRIT 34.7 % (39.0-51.0); HEMOGLOBIN 11.7 GM/DL (13.0-17.0); MEAN CELL VOLUME 88.7 FL (80.0-100.0); MEAN CORPUSCULAR HGB CONC 33.8 % (32.0-36.0); MEAN PLATELET VOLUME 8.2 FL (7.0-11.0); PLATELET COUNT 190 TH/MM3 (150-450); RED BLOOD COUNT 3.91 MIL/MM3 (4.50-5.90); RED CELL DISTRIBUTION WIDTH 15.8 % (11.6-17.2); WHITE BLOOD COUNT 7.5 TH/MM3 (4.0-11.0)
[2017-08-14 04:50] LABS: INTERNATIONAL NORMALIZED RATIO 1.9 RATIO; PROTHROMBIN TIME - PATIENT 19.5 SEC (9.8-11.6)
[2017-08-14 04:51] LABS: BICARBONATE 30.1 MEQ/L (21.0-32.0); CALCIUM 8.6 MG/DL (8.5-10.1); CREATININE 1.05 MG/DL (0.60-1.30); MAGNESIUM 2.1 MG/DL (1.5-2.5)
[2017-08-14] MEDS: LEVOTHYROXINE SODIUM 25 MCG TAB PO SCH (06:07)
--- NOTE | 2017-08-14 07:33 | HHI.PR ---
Subjective Remarks Patient seen and examined this morning. Vitals are stable. Patient states his medications were changed yesterday afternoon and he feels significantly better since then. Is able to sleep throughout the night. He was able to lay flat. Denies shortness of breath or chest pain. Plans to call today regarding LifeVest. Objective Vital Signs Date Time Temp Pulse Resp B/P (MAP) Pulse Ox O2 Delivery O2 Flow Rate FiO2 08/14/17 06:00 70 08/14/17 05:00 68 08/14/17 04:25 93 16 121/72 (88) 97 08/14/17 04:00 88 08/14/17 03:00 69 08/14/17 02:00 80 08/14/17 01:00 102 08/14/17 00:00 90 08/13/17 23:56 85 16 100/67 (78) 96 08/13/17 23:00 97 08/13/17 22:00 112 08/13/17 21:00 110 08/13/17 20:05 98.7 105 16 113/80 (91) 98 08/13/17 20:05 98 Room Air 08/13/17 20:00 122 08/13/17 19:00 103 08/13/17 18:00 98 08/13/17 17:35 98 21 08/13/17 17:00 108 08/13/17 16:00 82 08/13/17 15:05 98.5 114 16 106/75 (85) 98 08/13/17 15:00 111 08/13/17 14:00 82 08/13/17 13:00 110 08/13/17 12:25 110 17 96/72 (80) 97 08/13/17 12:00 104 08/13/17 11:41 96 08/13/17 11:30 98.2 08/13/17 11:00 99 08/13/17 10:00 124 08/13/17 09:00 124 08/13/17 08:00 96 08/13/17 07:36 99 I/O 08/13/17 08/13/17 08/13/17 08/14/17 08/14/17 08/14/17 07:00 15:00 23:00 07:00 15:00 23:00 Intake Total 556.7 ml 720 ml Output Total 1200 ml 650 ml Balance 556.7 ml -480 ml -650 ml Intake Oral 240 ml 720 ml IV Total 316.7 ml Output Urine Total 1200 ml 650 ml # Voids 1 # Bowel Movements 0 1 0 Result Diagram: 08/14/17 0400 08/14/17 0400 Imaging Last Impressions Chest X-Ray 08/10/17 0600 Signed Impressions: Service Date/Time: Thursday, August 10, 2017 05:54 - CONCLUSION: 1. Cardiomegaly with right basilar airspace disease and pleural effusion similar to prior study. Minimal left basilar atelectasis. Rah Meyer MD Objective Remarks GENERAL: Well appearing, no acute distress SKIN: Warm and dry. HEAD: Normocephalic. EYES: No scleral icterus. No injection or drainage. NECK: Supple, trachea midline. No JVD or lymphadenopathy. CARDIOVASCULAR: Irregular rhythm without murmurs, gallops, or rubs. RESPIRATORY: Breath sounds equal bilaterally. No accessory muscle use. GASTROINTESTINAL: Abdomen soft, non-tender, nondistended. MUSCULOSKELETAL: No cyanosis, or edema. A/P Problem List: (1) Diabetes mellitus ICD Code: E11.9 - Diabetes mellitus Status: Acute (2) Atrial fibrillation ICD Code: I48.91 - Atrial fibrillation Status: Acute (3) Hypothyroid ICD Code: E03.9 - Hypothyroidism Status: Acute (4) Congestive heart failure (CHF) ICD Code: I50.9 - Congestive heart failure (CHF) Status: Acute (5) Cardiomyopathy ICD Code: I42.9 - Cardiomyopathy Status: Acute Assessment and Plan In summary this is a 61-year-old male patient with medical history significant for CHF, diabetes, hypertension, hyperlipidemia and bipolar disease who presented to [place] [facility] with a four-day history of shortness of breath. Ischemic cardiomyopathy Coronary artery disease s/p cath by Dr. Rose PTCA to diag and BMS to LAD. Ct asa, plavix, BB and statin . Echo 08/10/2017 shows systolic function of 20%, per Dr. cohen repeat echo in 60 days, FEF still low then defibrillator will be considered. Medical management: Lasix 40 mg twice daily, carvedilol 6.25 mg twice daily, statin, ramipril 2.5 mg daily, added aldactone. eval for life vest, case management consulted for eligibility for heart transplant Community-acquired pneumonia Currently on azithromycin and Ceftin 08/09 (anticipate 7 day course) [place] I -Improving, continue to monitor and renally dose all meds A. fib with RVR Heart rate currently stable Restarted coumadin, lovenox bridge INR 1.9 Diabetes Levemir 15 units at bedtime, sliding scale Hypertension BP stable continue SIMON inhibitor and carvedilol Hyperlipidemia Continue statin Hypothyroidism Continue 37.5 mcg of levothyroxine daily Discharge Planning Discharge is pending cardiac clearance. Umu Rivero MD Aug 14, 2017 07:33
[2017-08-14] MEDS: INSULIN ASPART SUPPLEMENTAL SCALE SQ SCH ×4 (07:37→21:28)
[2017-08-14] MEDS ORDERED: DIGOXIN 0.25 MG TAB PO ONE (08:20)
[2017-08-14] MEDS: ENOXAPARIN SODIUM 80 MG/0.8 ML SYRINGE SQ SCH ×2 (08:48→21:24)
[2017-08-14] MEDS: AZITHROMYCIN 250 MG TAB PO SCH (08:49)
[2017-08-14] MEDS: CEFUROXIME AXETIL 500 MG TAB PO SCH ×2 (08:49→21:23)
[2017-08-14] MEDS: ASPIRIN 81 MG CHEW TAB PO SCH (08:49)
[2017-08-14] MEDS: CARVEDILOL 3.125 MG TAB PO SCH ×2 (08:50→21:22)
[2017-08-14] MEDS: FUROSEMIDE 40 MG/4 ML VIAL IV PUSH SCH ×2 (08:51→17:32)
[2017-08-14] MEDS: CITALOPRAM HYDROBROMIDE 20 MG TAB PO SCH (08:52)
[2017-08-14] MEDS: CLOPIDOGREL 75 MG TAB PO SCH (08:52)
[2017-08-14] MEDS: SODIUM CHLORIDE 0.9% FLUSH 10 ML FLUSH IV FLUSH SCH ×2 (08:53→21:00)
[2017-08-14] MEDS: POTASSIUM CHLORIDE 20 MEQ CONTROLLED RELEASE TAB PO SCH ×2 (08:53→21:23)
[2017-08-14] MEDS: RAMIPRIL 2.5 MG CAP PO SCH (09:00)
--- NOTE | 2017-08-14 09:06 | PD.CARD.PN ---
Subjective Subjective Remarks feels "alot" better Objective Medications Current Medications Medications (Trade) Dose Ordered Sig/Tony Route Start Time Stop Time Status Last Admin (Lopressor Inj) 5 mg Q5M PRN IV PUSH 08/08/17 01:30 (D50w (Vial) Inj) 50 ml UNSCH PRN IV PUSH 08/08/17 01:45 (Glucagon Inj) 1 mg UNSCH PRN OTHER 08/08/17 01:45 (NovoLOG SUPPLEMENTAL SCALE) 1 ACHS SLIDING SCALE SQ 08/08/17 08:00 08/13/17 21:29 (CeleXA) 20 mg DAILY PO 08/08/17 09:00 08/13/17 08:46 (Synthroid) 37.5 mcg DAILY@0600 PO 08/08/17 09:00 08/14/17 06:07 (Tylenol) 650 mg Q4H PRN PO 08/08/17 12:00 08/12/17 21:56 (Atrovent Neb) 0.5 mg Q4HR NEB PRN NEB 08/08/17 23:45 08/09/17 00:06 (Levemir Inj) 15 units HS SQ 08/09/17 21:00 08/13/17 21:28 (Tessalon) 200 mg TID PRN PO 08/09/17 15:15 08/13/17 23:27 (Coreg) 6.25 mg BID PO 08/09/17 21:00 08/13/17 21:25 (Mag-Ox) 400 mg BID@1100,2300 PO 08/10/17 23:00 08/13/17 21:26 (KCl) 20 meq Q12HR PO 08/11/17 10:15 08/13/17 21:27 (NS Flush) 2 ml UNSCH PRN IV FLUSH 08/12/17 12:45 (NS Flush) 2 ml BID IV FLUSH 08/12/17 21:00 (Aspirin Chew) 162 mg DAILY PO 08/13/17 09:00 08/13/17 08:45 (Plavix) 75 mg DAILY PO 08/13/17 09:00 08/13/17 08:46 (Altace) 2.5 mg DAILY PO 08/13/17 09:00 08/13/17 08:45 (Lipitor) 10 mg HS PO 08/12/17 21:00 08/13/17 21:25 (Lasix Inj) 40 mg BID@18 IV PUSH 08/12/17 18:00 08/13/17 18:04 (Ceftin) 500 mg Q12HR PO 08/12/17 21:00 08/15/17 20:59 08/13/17 21:27 (Zithromax) 250 mg DAILY PO 08/12/17 15:00 08/14/17 14:59 08/13/17 08:45 (Robitussin Ac 200-20 Mg/10 ml Liq) 5 ml Q4H PRN PO 08/12/17 19:15 08/14/17 01:16 (Lovenox Inj) 80 mg Q12HR SQ 08/13/17 18:00 08/13/17 18:09 (Aldactone) 50 mg BID@ PO 08/14/17 09:00 (Coumadin) 5 mg ONCE ONCE PO 08/14/17 16:00 08/14/17 16:01 (Coumadin) 3 mg SuTuThSa@16 PO 08/16/17 16:00 (Lanoxin) 0.25 mg DAILY PO 08/15/17 09:00 Vital Signs / I&O Vital Signs Date Time Temp Pulse Resp B/P (MAP) Pulse Ox O2 Delivery O2 Flow Rate FiO2 08/14/17 07:34 97 Room Air 08/14/17 07:00 63 08/14/17 06:00 70 08/14/17 05:00 68 08/14/17 04:25 93 16 121/72 (88) 97 08/14/17 04:00 88 08/14/17 03:00 69 08/14/17 02:00 80 08/14/17 01:00 102 08/14/17 00:00 90 08/13/17 23:56 85 16 100/67 (78) 96 08/13/17 23:00 97 08/13/17 22:00 112 08/13/17 21:00 110 08/13/17 20:05 98.7 105 16 113/80 (91) 98 08/13/17 20:05 98 Room Air 08/13/17 20:00 122 08/13/17 19:00 103 08/13/17 18:00 98 08/13/17 17:35 98 21 08/13/17 17:00 108 08/13/17 16:00 82 08/13/17 15:05 98.5 114 16 106/75 (85) 98 08/13/17 15:00 111 08/13/17 14:00 82 08/13/17 13:00 110 08/13/17 12:25 110 17 96/72 (80) 97 08/13/17 12:00 104 08/13/17 11:41 96 08/13/17 11:30 98.2 08/13/17 11:00 99 08/13/17 10:00 124 I/O 08/13/17 08/13/17 08/13/17 08/14/17 08/14/17 08/14/17 07:00 15:00 23:00 07:00 15:00 23:00 Intake Total 556.7 ml 720 ml Output Total 1200 ml 650 ml Balance 556.7 ml -480 ml -650 ml Intake Oral 240 ml 720 ml IV Total 316.7 ml Output Urine Total 1200 ml 650 ml # Voids 1 # Bowel Movements 0 1 0 Physical Exam GENERAL: SKIN: Warm and dry. HEAD: Normocephalic. EYES: No scleral icterus. No injection or drainage. NECK: Supple, trachea midline. No JVD or lymphadenopathy. CARDIOVASCULAR: Regular rate and rhythm without murmurs, gallops, or rubs. RESPIRATORY: Breath sounds equal bilaterally. No accessory muscle use. GASTROINTESTINAL: Abdomen soft, non-tender, nondistended. MUSCULOSKELETAL: No cyanosis, or edema. BACK: Nontender without obvious deformity. No CVA tenderness. Laboratory Laboratory Tests Test 08/14/17 04:00 White Blood Count 7.5 TH/MM3 Red Blood Count 3.91 MIL/MM3 Hemoglobin 11.7 GM/DL Hematocrit 34.7 % Mean Corpuscular Volume 88.7 FL Mean Corpuscular Hemoglobin 30.0 PG Mean Corpuscular Hemoglobin Concent 33.8 % Red Cell Distribution Width 15.8 % Platelet Count 190 TH/MM3 Mean Platelet Volume 8.2 FL Prothrombin Time 19.5 SEC Prothromb Time International Ratio 1.9 RATIO Blood Urea Nitrogen 25 MG/DL Creatinine 1.05 MG/DL Random Glucose 126 MG/DL Calcium Level 8.6 MG/DL Magnesium Level 2.1 MG/DL Sodium Level 139 MEQ/L Potassium Level 3.9 MEQ/L Chloride Level 102 MEQ/L Carbon Dioxide Level 30.1 MEQ/L Anion Gap 7 MEQ/L Estimat Glomerular Filtration Rate 72 ML/MIN B-Type Natriuretic Peptide 894 PG/ML Assessment and Plan Problem List: (1) CAD (coronary artery disease) ICD Codes: I25.10 - Atherosclerotic heart disease of [place] coronary artery without angina pectoris (2) Left bundle branch block ICD Codes: I44.7 - Left bundle branch block Status: Acute (3) Renal insufficiency ICD Codes: N28.9 - Renal insufficiency Status: Acute (4) Cardiomyopathy ICD Codes: I42.9 - Cardiomyopathy Status: Acute (5) Atrial fibrillation ICD Codes: I48.91 - Atrial fibrillation Status: Acute (6) Congestive heart failure (CHF) ICD Codes: I50.9 - Congestive heart failure (CHF) Status: Acute (7) Diabetes mellitus ICD Codes: E11.9 - Diabetes mellitus Status: Acute Assessment and Plan 1.) Cardiomyopathy - improved, increase aldactone 50 mg bid, add dig .25 mg po qd, 2.) Afib - rate controlled, inr=1.9, continue coumadin, lovenox bridge 3.) CAD - continue aspirin, plavix, lipitor Sae Rose MD Aug 14, 2017 09:06
[2017-08-14] MEDS: SPIRONOLACTONE 50 MG TAB PO SCH ×2 (09:08→17:32)
[2017-08-14] MEDS: MAGNESIUM OXIDE 400 MG TAB PO SCH ×2 (12:31→21:30)
[2017-08-14] MEDS ORDERED: WARFARIN SOD 5 MG TAB PO ONE (16:00)
[2017-08-14] MEDS: ATORVASTATIN 10 MG TAB PO SCH (21:22)
[2017-08-14] MEDS: INSULIN DETEMIR 100 UNITS/ML VIAL SQ SCH (21:28)
[2017-08-15] VITALS (25 sets, daily range): BP systolic 80–114; BP diastolic 51–74; PULSE 60–97; RESP 16–18; TEMP 98.1–98.3; O2SAT 92–98
[2017-08-15] MEDS: LEVOTHYROXINE SODIUM 25 MCG TAB PO SCH (05:58)
[2017-08-15 06:43] LABS: HEMATOCRIT 35.1 % (39.0-51.0); HEMOGLOBIN 11.8 GM/DL (13.0-17.0); MEAN CELL VOLUME 88.8 FL (80.0-100.0); MEAN CORPUSCULAR HEMOGLOBIN 29.9 PG (27.0-34.0); MEAN CORPUSCULAR HGB CONC 33.6 % (32.0-36.0); MEAN PLATELET VOLUME 8.2 FL (7.0-11.0); PLATELET COUNT 199 TH/MM3 (150-450); RED BLOOD COUNT 3.95 MIL/MM3 (4.50-5.90); RED CELL DISTRIBUTION WIDTH 15.5 % (11.6-17.2); WHITE BLOOD COUNT 6.7 TH/MM3 (4.0-11.0)
[2017-08-15 06:54] LABS: INTERNATIONAL NORMALIZED RATIO 2.1 RATIO; PROTHROMBIN TIME - PATIENT 20.8 SEC (9.8-11.6)
[2017-08-15 07:12] LABS: BICARBONATE 30.5 MEQ/L (21.0-32.0); CALCIUM 8.6 MG/DL (8.5-10.1); CREATININE 1.03 MG/DL (0.60-1.30); MAGNESIUM 2.1 MG/DL (1.5-2.5)
[2017-08-15 07:28] LABS: DIGOXIN 0.8 NG/ML (0.8-2.0)
[2017-08-15] MEDS: INSULIN ASPART SUPPLEMENTAL SCALE SQ SCH ×4 (08:00→20:39)
[2017-08-15] MEDS: CEFUROXIME AXETIL 500 MG TAB PO SCH (09:31)
[2017-08-15] MEDS: ASPIRIN 81 MG CHEW TAB PO SCH (09:31)
[2017-08-15] MEDS: POTASSIUM CHLORIDE 20 MEQ CONTROLLED RELEASE TAB PO SCH ×2 (09:32→20:42)
[2017-08-15] MEDS: DIGOXIN 0.25 MG TAB PO SCH (09:33)
[2017-08-15] MEDS: CITALOPRAM HYDROBROMIDE 20 MG TAB PO SCH (09:33)
[2017-08-15] MEDS: SPIRONOLACTONE 50 MG TAB PO SCH ×2 (09:33→17:30)
[2017-08-15] MEDS: RAMIPRIL 2.5 MG CAP PO SCH (09:33)
[2017-08-15] MEDS: CLOPIDOGREL 75 MG TAB PO SCH (09:33)
[2017-08-15] MEDS: SODIUM CHLORIDE 0.9% FLUSH 10 ML FLUSH IV FLUSH SCH ×2 (09:34→20:42)
[2017-08-15] MEDS: FUROSEMIDE 40 MG/4 ML VIAL IV PUSH SCH ×2 (09:34→17:30)
[2017-08-15] MEDS: CARVEDILOL 3.125 MG TAB PO SCH ×2 (09:35→20:42)
--- NOTE | 2017-08-15 11:23 | HHI.PR ---
Subjective Remarks Patient seen around 915 this morning. Patient states he is feeling better. He is coughing less and it is nonproductive. No worsening shortness of breath, no chest pains, no nausea or vomiting. Patient and significant other at bedside. They are concerned about the LifeVest because they cannot afford it. They are wondering if there are any other options Objective Vitals Vital Signs Date Time Temp Pulse Resp B/P (MAP) Pulse Ox O2 Delivery O2 Flow Rate FiO2 08/15/17 10:57 61 08/15/17 09:02 74 08/15/17 08:21 85 08/15/17 07:29 77 08/15/17 07:29 98.3 77 18 114/71 (85) 95 08/15/17 07:29 95 Room Air 08/15/17 06:00 88 08/15/17 05:00 72 08/15/17 04:00 77 16 104/71 (82) 97 08/15/17 04:00 78 08/15/17 03:00 97 08/15/17 02:00 66 08/15/17 01:00 60 08/15/17 00:00 74 08/14/17 23:40 85 18 99/65 (76) 96 08/14/17 23:00 83 08/14/17 22:00 84 08/14/17 21:00 90 08/14/17 20:40 95 Room Air 08/14/17 20:40 97.0 75 16 117/55 (75) 95 08/14/17 20:00 92 08/14/17 19:00 98 08/14/17 18:00 107 08/14/17 17:18 96 21 08/14/17 17:00 91 08/14/17 16:00 84 08/14/17 15:22 84 08/14/17 15:20 98.0 85 18 113/55 (74) 96 08/14/17 14:00 62 08/14/17 13:00 62 08/14/17 12:35 96/73 (81) 08/14/17 12:17 98.0 87 17 85/64 (71) 95 08/14/17 12:00 62 I/O 08/14/17 08/14/17 08/14/17 08/15/17 08/15/17 08/15/17 06:59 14:59 22:59 06:59 14:59 22:59 Intake Total 720 ml 240 ml Output Total 650 ml 1100 ml 400 ml Balance -650 ml -380 ml -160 ml Intake Oral 720 ml 240 ml Output Urine Total 650 ml 1100 ml 400 ml # Bowel Movements 0 1 Result Diagram: 08/15/1752608/15/17526 Imaging Last Impressions Chest X-Ray 08/10/17 0600 Signed Impressions: Service Date/Time: Thursday, August 10, 2017 05:54 - CONCLUSION: 1. Cardiomegaly with right basilar airspace disease and pleural effusion similar to prior study. Minimal left basilar atelectasis. Rah Meyer MD Objective Remarks GENERAL: Well appearing, no acute distress CARDIOVASCULAR: Irregular rhythm without obvious murmurs RESPIRATORY: Breath sounds equal bilaterally. No accessory muscle use. GASTROINTESTINAL: Abdomen soft, non-tender, nondistended. MUSCULOSKELETAL: No edema. Procedures cardiac cath A/P Problem List: (1) Cardiomyopathy ICD Code: I42.9 - Cardiomyopathy Status: Acute (2) Congestive heart failure (CHF) ICD Code: I50.9 - Congestive heart failure (CHF) Status: Acute Assessment and Plan In summary this is a 61-year-old male patient with medical history significant for CHF, diabetes, hypertension, hyperlipidemia and bipolar disease who presented to [place] with a four-day history of shortness of breath. Ischemic cardiomyopathy Coronary artery disease s/p cath by Dr. Rose PTCA to diag and BMS to LAD. Ct asa, plavix, BB and statin . Echo 08/10/2017 shows systolic function of 20%, per Dr. Domínguez repeat echo in 60 days, if EF still low then defibrillator will be considered. Both patient and significant other tell me that they cannot afford the LifeVest. Continue medical management: Lasix 40 mg twice daily, carvedilol 6.25 mg twice daily, statin, ramipril 2.5 mg daily, aldactone and digoxin. apparently pt cannot afford lifevest. Dr. Domínguez notified. case management consulted for eligibility for heart transplant Community-acquired pneumonia Currently on azithromycin and Ceftin 08/09 (anticipate 7 day course). Improving. GARCÍA resolved A. fib with RVR Heart rate currently stable was on coumadin, lovenox bridge INR 2.1. continue coumadin Diabetes Levemir 15 units at bedtime, sliding scale Hypertension BP stable continue SIMON inhibitor and carvedilol Hyperlipidemia Continue statin Hypothyroidism Continue 37.5 mcg of levothyroxine daily Discharge Planning Discharge is pending cardiac clearance. Pt requires a lifevest but cannot afford it. CM assisting w d/c planning Lissett Mathis MD Aug 15, 2017 11:23
[2017-08-15] MEDS: BENZONATATE 100 MG CAP PO PRN ×2 (12:24→23:16)
[2017-08-15] MEDS: MAGNESIUM OXIDE 400 MG TAB PO SCH ×2 (12:26→23:15)
--- NOTE | 2017-08-15 14:13 | PD.CARD.PN ---
Subjective Subjective Remarks feels "alot" better, assymptomatic Objective Medications Current Medications Medications (Trade) Dose Ordered Sig/Tony Route Start Time Stop Time Status Last Admin (Lopressor Inj) 5 mg Q5M PRN IV PUSH 08/08/17 01:30 (D50w (Vial) Inj) 50 ml UNSCH PRN IV PUSH 08/08/17 01:45 (Glucagon Inj) 1 mg UNSCH PRN OTHER 08/08/17 01:45 (NovoLOG SUPPLEMENTAL SCALE) 1 ACHS SLIDING SCALE SQ 08/08/17 08:00 08/15/17 12:00 (CeleXA) 20 mg DAILY PO 08/08/17 09:00 08/15/17 09:33 (Synthroid) 37.5 mcg DAILY@0600 PO 08/08/17 09:00 08/15/17 05:58 (Tylenol) 650 mg Q4H PRN PO 08/08/17 12:00 08/12/17 21:56 (Atrovent Neb) 0.5 mg Q4HR NEB PRN NEB 08/08/17 23:45 08/09/17 00:06 (Levemir Inj) 15 units HS SQ 08/09/17 21:00 08/14/17 21:28 (Tessalon) 200 mg TID PRN PO 08/09/17 15:15 08/15/17 12:24 (Coreg) 6.25 mg BID PO 08/09/17 21:00 08/15/17 09:35 (Mag-Ox) 400 mg BID@1100,2300 PO 08/10/17 23:00 08/15/17 12:26 (KCl) 20 meq Q12HR PO 08/11/17 10:15 08/15/17 09:32 (NS Flush) 2 ml UNSCH PRN IV FLUSH 08/12/17 12:45 (NS Flush) 2 ml BID IV FLUSH 08/12/17 21:00 08/15/17 09:34 (Aspirin Chew) 162 mg DAILY PO 08/13/17 09:00 08/15/17 09:31 (Plavix) 75 mg DAILY PO 08/13/17 09:00 08/15/17 09:33 (Altace) 2.5 mg DAILY PO 08/13/17 09:00 08/15/17 09:33 (Lipitor) 10 mg HS PO 08/12/17 21:00 08/14/17 21:22 (Lasix Inj) 40 mg BID@ IV PUSH 08/12/17 18:00 08/15/17 09:34 (Ceftin) 500 mg Q12HR PO 08/12/17 21:00 08/15/17 20:59 08/15/17 09:31 (Robitussin Ac 200-20 Mg/10 ml Liq) 5 ml Q4H PRN PO 08/12/17 19:15 08/14/17 23:41 (Aldactone) 50 mg BID@ PO 08/14/17 09:00 08/15/17 09:33 (Coumadin) 3 mg SuTuThSa@16 PO 08/16/17 16:00 (Lanoxin) 0.25 mg DAILY PO 08/15/17 09:00 08/15/17 09:33 Vital Signs / I&O Vital Signs Date Time Temp Pulse Resp B/P (MAP) Pulse Ox O2 Delivery O2 Flow Rate FiO2 08/15/17 12:14 63 08/15/17 12:13 63 18 80/55 (63) 98 08/15/17 11:25 98.2 61 18 83/51 (62) 97 08/15/17 11:25 62 08/15/17 10:57 61 08/15/17 09:02 74 08/15/17 08:21 85 08/15/17 07:29 77 08/15/17 07:29 98.3 77 18 114/71 (85) 95 08/15/17 07:29 95 Room Air 08/15/17 06:00 88 08/15/17 05:00 72 08/15/17 04:00 77 16 104/71 (82) 97 08/15/17 04:00 78 08/15/17 03:00 97 08/15/17 02:00 66 08/15/17 01:00 60 08/15/17 00:00 74 08/14/17 23:40 85 18 99/65 (76) 96 08/14/17 23:00 83 08/14/17 22:00 84 08/14/17 21:00 90 08/14/17 20:40 95 Room Air 08/14/17 20:40 97.0 75 16 117/55 (75) 95 08/14/17 20:00 92 08/14/17 19:00 98 08/14/17 18:00 107 08/14/17 17:18 96 21 08/14/17 17:00 91 08/14/17 16:00 84 08/14/17 15:22 84 08/14/17 15:20 98.0 85 18 113/55 (74) 96 I/O 08/14/17 08/14/17 08/14/17 08/15/17 08/15/17 08/15/17 07:00 15:00 23:00 07:00 15:00 23:00 Intake Total 720 ml 240 ml Output Total 650 ml 1100 ml 400 ml Balance -650 ml -380 ml -160 ml Intake Oral 720 ml 240 ml Output Urine Total 650 ml 1100 ml 400 ml # Bowel Movements 0 1 Physical Exam GENERAL: SKIN: Warm and dry. HEAD: Normocephalic. EYES: No scleral icterus. No injection or drainage. NECK: Supple, trachea midline. No JVD or lymphadenopathy. CARDIOVASCULAR: Regular rate and rhythm without murmurs, gallops, or rubs. RESPIRATORY: Breath sounds equal bilaterally. No accessory muscle use. GASTROINTESTINAL: Abdomen soft, non-tender, nondistended. MUSCULOSKELETAL: No cyanosis, or edema. BACK: Nontender without obvious deformity. No CVA tenderness. Laboratory Laboratory Tests Test 08/15/17 05:27 White Blood Count 6.7 TH/MM3 Red Blood Count 3.95 MIL/MM3 Hemoglobin 11.8 GM/DL Hematocrit 35.1 % Mean Corpuscular Volume 88.8 FL Mean Corpuscular Hemoglobin 29.9 PG Mean Corpuscular Hemoglobin Concent 33.6 % Red Cell Distribution Width 15.5 % Platelet Count 199 TH/MM3 Mean Platelet Volume 8.2 FL Prothrombin Time 20.8 SEC Prothromb Time International Ratio 2.1 RATIO Blood Urea Nitrogen 19 MG/DL Creatinine 1.03 MG/DL Random Glucose 110 MG/DL Calcium Level 8.6 MG/DL Magnesium Level 2.1 MG/DL Sodium Level 138 MEQ/L Potassium Level 4.0 MEQ/L Chloride Level 101 MEQ/L Carbon Dioxide Level 30.5 MEQ/L Anion Gap 7 MEQ/L Estimat Glomerular Filtration Rate 74 ML/MIN B-Type Natriuretic Peptide 657 PG/ML Digoxin Level 0.8 NG/ML Assessment and Plan Problem List: (1) CAD (coronary artery disease) ICD Codes: I25.10 - Atherosclerotic heart disease of [place] coronary artery without angina pectoris (2) Left bundle branch block ICD Codes: I44.7 - Left bundle branch block Status: Acute (3) Renal insufficiency ICD Codes: N28.9 - Renal insufficiency Status: Acute (4) Cardiomyopathy ICD Codes: I42.9 - Cardiomyopathy Status: Acute (5) Atrial fibrillation ICD Codes: I48.91 - Atrial fibrillation Status: Acute (6) Congestive heart failure (CHF) ICD Codes: I50.9 - Congestive heart failure (CHF) Status: Acute (7) Diabetes mellitus ICD Codes: E11.9 - Diabetes mellitus Status: Acute Assessment and Plan 1.) Cardiomyopathy - improved, increase aldactone 50 mg bid, add dig .25 mg po qd, dig level = 0.8 2.) Afib - rate controlled, inr=2.1, continue coumadin, dc lovenox bridge 3.) CAD - continue aspirin, plavix, lipitor 4.) ok to dc from cv standpoint if/when cleared by Dr Sang Rose,Sae Zayas MD Aug 15, 2017 14:13
[2017-08-15] MEDS: INSULIN DETEMIR 100 UNITS/ML VIAL SQ SCH (20:40)
[2017-08-15] MEDS: ATORVASTATIN 10 MG TAB PO SCH (20:43)
[2017-08-16] VITALS (20 sets, daily range): BP systolic 96–115; BP diastolic 67–72; PULSE 62–100; RESP 16–18; TEMP 97.3–98.2; O2SAT 92–98
[2017-08-16] MEDS: LEVOTHYROXINE SODIUM 25 MCG TAB PO SCH (06:00)
[2017-08-16 06:50] LABS: BICARBONATE 29.1 MEQ/L (21.0-32.0); CALCIUM 8.9 MG/DL (8.5-10.1); CREATININE 1.09 MG/DL (0.60-1.30)
[2017-08-16] MEDS: INSULIN ASPART SUPPLEMENTAL SCALE SQ SCH ×4 (08:00→21:00)
[2017-08-16] MEDS ORDERED: ACETAMINOPHEN 325 MG TAB PO PRN (08:45)
[2017-08-16] MEDS: SPIRONOLACTONE 50 MG TAB PO SCH (09:00)
[2017-08-16] MEDS: RAMIPRIL 2.5 MG CAP PO SCH (09:00)
[2017-08-16] MEDS: CARVEDILOL 3.125 MG TAB PO SCH ×2 (09:00→21:12)
[2017-08-16] MEDS: CITALOPRAM HYDROBROMIDE 20 MG TAB PO SCH (10:01)
[2017-08-16] MEDS: POTASSIUM CHLORIDE 20 MEQ CONTROLLED RELEASE TAB PO SCH ×2 (10:01→21:11)
[2017-08-16] MEDS: ASPIRIN 81 MG CHEW TAB PO SCH (10:01)
[2017-08-16] MEDS: FUROSEMIDE 40 MG/4 ML VIAL IV PUSH SCH (10:02)
[2017-08-16] MEDS: CLOPIDOGREL 75 MG TAB PO SCH (10:02)
[2017-08-16] MEDS: SODIUM CHLORIDE 0.9% FLUSH 10 ML FLUSH IV FLUSH SCH ×2 (10:03→21:00)
[2017-08-16] MEDS: DIGOXIN 0.25 MG TAB PO SCH (10:32)
--- NOTE | 2017-08-16 11:00 | HHI.PR ---
Subjective Remarks Patient continues to feel better. He still has a cough but it is improving. Denies any chest pain, worsening shortness of breath, nausea or vomiting Objective Vitals Vital Signs Date Time Temp Pulse Resp B/P (MAP) Pulse Ox O2 Delivery O2 Flow Rate FiO2 08/16/17 10:12 83 08/16/17 09:20 86 08/16/17 07:36 72 08/16/17 07:36 98.1 76 16 96/67 (77) 94 08/16/17 07:36 94 Room Air 08/16/17 06:00 66 08/16/17 05:00 82 08/16/17 04:00 64 08/16/17 03:00 63 08/16/17 03:00 98.2 72 16 108/72 (84) 92 08/16/17 02:00 63 08/16/17 01:00 66 08/16/17 00:00 62 08/15/17 23:00 92 Room Air 08/15/17 23:00 72 08/15/17 23:00 98.2 63 16 91/56 (68) 92 08/15/17 22:00 82 08/15/17 21:00 84 08/15/17 20:00 84 08/15/17 20:00 96 Room Air 08/15/17 20:00 98.1 74 16 104/74 (84) 96 08/15/17 19:00 76 08/15/17 18:16 74 08/15/17 17:12 83 08/15/17 16:15 73 08/15/17 15:18 71 08/15/17 15:18 98.3 71 18 96/64 (75) 96 08/15/17 14:09 61 08/15/17 13:07 69 08/15/17 12:14 63 08/15/17 12:13 63 18 80/55 (63) 98 08/15/17 11:25 98.2 61 18 83/51 (62) 97 08/15/17 11:25 62 08/15/17 10:57 61 I/O 08/15/17 08/15/17 08/15/17 08/16/17 08/16/17 08/16/17 07:00 15:00 23:00 07:00 15:00 23:00 Intake Total 240 ml 640 ml 240 ml Output Total 400 ml Balance -160 ml 640 ml 240 ml Intake Oral 240 ml 640 ml 240 ml Output Urine Total 400 ml # Voids 4 4 # Bowel Movements 1 1 Result Diagram: 08/15/17 0527 08/16/17 0500 Imaging Last Impressions Chest X-Ray 08/10/17 0600 Signed Impressions: Service Date/Time: Thursday, August 10, 2017 05:54 - CONCLUSION: 1. Cardiomegaly with right basilar airspace disease and pleural effusion similar to prior study. Minimal left basilar atelectasis. Rah Meyer MD Objective Remarks GENERAL: Well appearing, no acute distress CARDIOVASCULAR: Appear regular without obvious murmurs RESPIRATORY: Breath sounds equal bilaterally. No accessory muscle use. No wheezing or crackles GASTROINTESTINAL: Abdomen soft, non-tender, nondistended. MUSCULOSKELETAL: Trace edema. Procedures cardiac cath A/P Problem List: (1) Cardiomyopathy ICD Code: I42.9 - Cardiomyopathy Status: Acute (2) Congestive heart failure (CHF) ICD Code: I50.9 - Congestive heart failure (CHF) Status: Acute Assessment and Plan In summary this is a 61-year-old male patient with medical history significant for CHF, diabetes, hypertension, hyperlipidemia and bipolar disease who presented to [place] with a four-day history of shortness of breath. Ischemic cardiomyopathy Coronary artery disease s/p cath by Dr. Rose PTCA to diag and BMS to LAD. Ct asa, plavix, BB and statin . Echo 08/10/2017 shows systolic function of 20%, per Dr. Domínguez repeat echo in 60 days, if EF still low then defibrillator will be considered. Both patient and significant other tell me that they cannot afford the LifeVest. Continue medical management: Lasix 40 mg twice daily, carvedilol 6.25 mg twice daily, statin, ramipril 2.5 mg daily, aldactone and digoxin. However due to patient's low blood pressure will continue only the ramipril 2.5 daily and decrease the Coreg to 3.25 once a day per Dr. Domínguez recommendations (will titrate coreg up if BP's improve). Will hold Lasix and Aldactone for now. Continue digoxin. apparently pt cannot afford lifevest. Dr. Domínguez notified. Community-acquired pneumonia completed course of azithromycin and Ceftin. Pt is Improving. GARCÍA resolved A. fib with RVR Heart rate currently stable was on coumadin, lovenox bridge INR 2.1. continue coumadin Diabetes Levemir 15 units at bedtime, sliding scale Hypertension BP stable continue SIMON inhibitor and carvedilol Hyperlipidemia Continue statin Hypothyroidism Continue 37.5 mcg of levothyroxine daily Discharge Planning Discharge is pending cardiac clearance. Pt requires a lifevest but cannot afford it. Lissett Chan MD August 16, 2017 11:00
[2017-08-16 11:55] LABS: INTERNATIONAL NORMALIZED RATIO 1.7 RATIO; PROTHROMBIN TIME - PATIENT 16.9 SEC (9.8-11.6)
[2017-08-16] MEDS: MAGNESIUM OXIDE 400 MG TAB PO SCH ×2 (12:25→23:16)
[2017-08-16] MEDS ORDERED: WARFARIN SOD 3 MG TAB PO SCH (16:00)
[2017-08-16] MEDS ORDERED: WARFARIN SOD 2 MG TAB PO ONE (16:00)
--- NOTE | 2017-08-16 16:33 | PD.CARD.PN ---
Subjective Subjective Remarks feels "alot" better, assymptomatic, walking halls with no symptoms Objective Medications Current Medications Medications (Trade) Dose Ordered Sig/Tony Route Start Time Stop Time Status Last Admin (Lopressor Inj) 5 mg Q5M PRN IV PUSH 08/08/17 01:30 (D50w (Vial) Inj) 50 ml UNSCH PRN IV PUSH 08/08/17 01:45 (Glucagon Inj) 1 mg UNSCH PRN OTHER 08/08/17 01:45 (NovoLOG SUPPLEMENTAL SCALE) 1 ACHS SLIDING SCALE SQ 08/08/17 08:00 08/15/17 20:39 (CeleXA) 20 mg DAILY PO 08/08/17 09:00 08/16/17 10:01 (Synthroid) 37.5 mcg DAILY@0600 PO 08/08/17 09:00 08/16/17 06:00 (Atrovent Neb) 0.5 mg Q4HR NEB PRN NEB 08/08/17 23:45 08/09/17 00:06 (Levemir Inj) 15 units HS SQ 08/09/17 21:00 08/15/17 20:40 (Tessalon) 200 mg TID PRN PO 08/09/17 15:15 08/15/17 23:16 (Mag-Ox) 400 mg BID@1100,2300 PO 08/10/17 23:00 08/16/17 12:25 (KCl) 20 meq Q12HR PO 08/11/17 10:15 08/16/17 10:01 (NS Flush) 2 ml UNSCH PRN IV FLUSH 08/12/17 12:45 08/15/17 17:30 (NS Flush) 2 ml BID IV FLUSH 08/12/17 21:00 08/16/17 10:03 (Aspirin Chew) 162 mg DAILY PO 08/13/17 09:00 08/16/17 10:01 (Plavix) 75 mg DAILY PO 08/13/17 09:00 08/16/17 10:02 (Altace) 2.5 mg DAILY PO 08/13/17 09:00 08/16/17 09:00 (Lipitor) 10 mg HS PO 08/12/17 21:00 08/15/17 20:43 (Lasix Inj) 40 mg BID@18 IV PUSH 08/12/17 18:00 Future Hold 08/16/17 10:02 (Robitussin Ac 200-20 Mg/10 ml Liq) 5 ml Q4H PRN PO 08/12/17 19:15 08/14/17 23:41 (Aldactone) 50 mg BID@09,18 PO 08/14/17 09:00 Future Hold 08/15/17 17:30 (Coumadin) 3 mg SuTuThSa@16 PO 08/16/17 16:00 (Lanoxin) 0.25 mg DAILY PO 08/15/17 09:00 08/16/17 10:32 (Tylenol) 650 mg Q4H PRN PO 08/16/17 08:45 (Coreg) 3.125 mg HS PO 08/16/17 21:00 Pharmacy Profile Note 0 ml @ 0 mls/hr UNSCH OTHER 08/16/17 11:00 Vital Signs / I&O Vital Signs Date Time Temp Pulse Resp B/P (MAP) Pulse Ox O2 Delivery O2 Flow Rate FiO2 08/16/17 13:05 67 08/16/17 12:07 83 08/16/17 11:10 97.8 86 16 110/72 (85) 97 08/16/17 11:10 86 08/16/17 10:12 83 08/16/17 09:20 86 08/16/17 07:36 72 08/16/17 07:36 98.1 76 16 96/67 (77) 94 08/16/17 07:36 94 Room Air 08/16/17 06:00 66 08/16/17 05:00 82 08/16/17 04:00 64 08/16/17 03:00 63 08/16/17 03:00 98.2 72 16 108/72 (84) 92 08/16/17 02:00 63 08/16/17 01:00 66 08/16/17 00:00 62 08/15/17 23:00 92 Room Air 08/15/17 23:00 72 08/15/17 23:00 98.2 63 16 91/56 (68) 92 08/15/17 22:00 82 08/15/17 21:00 84 08/15/17 20:00 84 08/15/17 20:00 96 Room Air 08/15/17 20:00 98.1 74 16 104/74 (84) 96 08/15/17 19:00 76 08/15/17 18:16 74 08/15/17 17:12 83 I/O 08/15/17 08/15/17 08/15/17 08/16/17 08/16/17 08/16/17 07:00 15:00 23:00 07:00 15:00 23:00 Intake Total 240 ml 640 ml 240 ml Output Total 400 ml Balance -160 ml 640 ml 240 ml Intake Oral 240 ml 640 ml 240 ml Output Urine Total 400 ml # Voids 4 4 # Bowel Movements 1 1 Physical Exam GENERAL: SKIN: Warm and dry. HEAD: Normocephalic. EYES: No scleral icterus. No injection or drainage. NECK: Supple, trachea midline. No JVD or lymphadenopathy. CARDIOVASCULAR: Regular rate and rhythm without murmurs, gallops, or rubs. RESPIRATORY: Breath sounds equal bilaterally. No accessory muscle use. GASTROINTESTINAL: Abdomen soft, non-tender, nondistended. MUSCULOSKELETAL: No cyanosis, or edema. BACK: Nontender without obvious deformity. No CVA tenderness. Laboratory Laboratory Tests Test 08/16/17 05:00 08/16/17 11:30 Blood Urea Nitrogen 18 MG/DL Creatinine 1.09 MG/DL Random Glucose 102 MG/DL Calcium Level 8.9 MG/DL Magnesium Level 2.0 MG/DL Sodium Level 137 MEQ/L Potassium Level 4.4 MEQ/L Chloride Level 100 MEQ/L Carbon Dioxide Level 29.1 MEQ/L Anion Gap 8 MEQ/L Estimat Glomerular Filtration Rate 69 ML/MIN Prothrombin Time 16.9 SEC Prothromb Time International Ratio 1.7 RATIO Assessment and Plan Problem List: (1) CAD (coronary artery disease) ICD Codes: I25.10 - Atherosclerotic heart disease of [place] coronary artery without angina pectoris (2) Left bundle branch block ICD Codes: I44.7 - Left bundle branch block Status: Acute (3) Renal insufficiency ICD Codes: N28.9 - Renal insufficiency Status: Acute (4) Cardiomyopathy ICD Codes: I42.9 - Cardiomyopathy Status: Acute (5) Atrial fibrillation ICD Codes: I48.91 - Atrial fibrillation Status: Acute (6) Congestive heart failure (CHF) ICD Codes: I50.9 - Congestive heart failure (CHF) Status: Acute (7) Diabetes mellitus ICD Codes: E11.9 - Diabetes mellitus Status: Acute Assessment and Plan 1.) Cardiomyopathy - improved, continue aldactone 50 mg bid, dig .25 mg po qd, dig level = 0.8, Dr Silvestre evaluating for life vest, coverage appears to be limiting candidacy; nyha class1 2.) Afib - rate controlled, inr=1.7, continue coumadin, Dr silvestre considering ablation 3.) CAD - continue aspirin, plavix, lipitor 4.) ok to dc from cv standpoint if/when cleared by Sae Hwang MD August 16, 2017 16:33
[2017-08-16] MEDS: INSULIN DETEMIR 100 UNITS/ML VIAL SQ SCH (21:00)
[2017-08-16] MEDS: ATORVASTATIN 10 MG TAB PO SCH (21:12)
[2017-08-16] MEDS: BENZONATATE 100 MG CAP PO PRN (21:12)
[2017-08-17] VITALS (26 sets, daily range): BP systolic 107–126; BP diastolic 71–80; PULSE 62–121; RESP 14–18; TEMP 96.9–98.7; O2SAT 92–97
[2017-08-17] MEDS: LEVOTHYROXINE SODIUM 25 MCG TAB PO SCH (05:40)
[2017-08-17 07:07] LABS: INTERNATIONAL NORMALIZED RATIO 1.5 RATIO; PROTHROMBIN TIME - PATIENT 15.5 SEC (9.8-11.6)
[2017-08-17] MEDS: INSULIN ASPART SUPPLEMENTAL SCALE SQ SCH ×3 (08:00→21:49)
[2017-08-17] MEDS: CLOPIDOGREL 75 MG TAB PO SCH (09:14)
[2017-08-17] MEDS: POTASSIUM CHLORIDE 20 MEQ CONTROLLED RELEASE TAB PO SCH ×2 (09:14→21:20)
[2017-08-17] MEDS: CITALOPRAM HYDROBROMIDE 20 MG TAB PO SCH (09:14)
[2017-08-17] MEDS: RAMIPRIL 2.5 MG CAP PO SCH (09:14)
[2017-08-17] MEDS: ASPIRIN 81 MG CHEW TAB PO SCH (09:15)
[2017-08-17] MEDS: DIGOXIN 0.25 MG TAB PO SCH (09:16)
[2017-08-17] MEDS: SODIUM CHLORIDE 0.9% FLUSH 10 ML FLUSH IV FLUSH SCH ×2 (09:20→21:20)
[2017-08-17] MEDS: MAGNESIUM OXIDE 400 MG TAB PO SCH ×2 (12:43→21:49)
--- NOTE | 2017-08-17 14:12 | HHI.PR ---
Subjective Remarks Patient feeling a lot better. Has been ambulating and not getting worsening shortness of breath. He ate lunch. Denies any chest pain, nausea or vomiting Objective Vitals Vital Signs Date Time Temp Pulse Resp B/P (MAP) Pulse Ox O2 Delivery O2 Flow Rate FiO2 08/17/17 13:00 106 08/17/17 12:14 95 Room Air 08/17/17 12:00 82 08/17/17 11:41 98.7 72 14 107/74 (85) 96 08/17/17 11:00 71 08/17/17 10:00 62 08/17/17 09:00 92 08/17/17 08:03 97.5 86 109/76 (87) 95 08/17/17 08:00 92 08/17/17 07:00 71 08/17/17 06:00 73 08/17/17 05:00 62 08/17/17 04:00 78 08/17/17 04:00 97.7 78 16 107/71 (83) 92 08/17/17 03:00 75 08/17/17 02:00 71 08/17/17 01:00 80 08/17/17 00:00 82 08/16/17 23:00 97 Room Air 08/16/17 23:00 84 08/16/17 23:00 98.1 85 16 115/67 (83) 97 08/16/17 22:00 88 08/16/17 21:00 86 08/16/17 20:00 98 Room Air 08/16/17 20:00 97.6 65 16 108/68 (81) 98 08/16/17 20:00 100 08/16/17 19:00 78 08/16/17 16:36 82 08/16/17 15:30 97.3 88 18 108/72 (84) 95 I/O 08/16/17 08/16/17 08/16/17 08/17/17 08/17/17 08/17/17 07:00 15:00 23:00 07:00 15:00 23:00 Intake Total 240 ml 240 ml Balance 240 ml 240 ml Intake Oral 240 ml 240 ml # Voids 4 3 # Bowel Movements 1 0 Result Diagram: 08/15/17 0520 08/16/17 0500 Imaging Last Impressions Chest X-Ray 08/10/17 0600 Signed Impressions: Service Date/Time: Thursday, August 10, 2017 05:54 - CONCLUSION: 1. Cardiomegaly with right basilar airspace disease and pleural effusion similar to prior study. Minimal left basilar atelectasis. Rah Meyer MD Objective Remarks GENERAL: Well appearing, no acute distress CARDIOVASCULAR: Appear regular without obvious murmurs RESPIRATORY: Breath sounds equal bilaterally. No accessory muscle use. No wheezing GASTROINTESTINAL: Abdomen soft, non-tender MUSCULOSKELETAL: Trace edema. Procedures cardiac cath A/P Problem List: (1) Cardiomyopathy ICD Code: I42.9 - Cardiomyopathy Status: Acute (2) Congestive heart failure (CHF) ICD Code: I50.9 - Congestive heart failure (CHF) Status: Acute Assessment and Plan In summary this is a 61-year-old male patient with medical history significant for CHF, diabetes, hypertension, hyperlipidemia and bipolar disease who presented to [facility] with a four-day history of shortness of breath. Ischemic cardiomyopathy Coronary artery disease s/p cath by Dr. Rose PTCA to diag and BMS to LAD. Ct asa, plavix, BB and statin . Echo 08/10/2017 shows systolic function of 20%, per Dr. Domínguez repeat echo in 60 days, if EF still low then defibrillator will be considered. Both patient and significant other tell me that they cannot afford the LifeVest. Continue medical management: Lasix 40 mg twice daily, carvedilol 6.25 mg twice daily, statin, ramipril 2.5 mg daily, aldactone and digoxin. However due to patient's low blood pressure will continue only the ramipril 2.5 daily and decrease the Coreg to 3.25 once a day per Dr. Domínguez recommendations (will titrate coreg up if BP's improve). Will hold Lasix and Aldactone for now. Continue digoxin. apparently pt cannot afford lifevest. Dr. Domínguez is aware. Community-acquired pneumonia completed course of azithromycin and Ceftin. Pt is Improving. GARCÍA resolved A. fib with RVR Heart rate currently stable was on coumadin, lovenox bridge INR 1.5. continue coumadin. Pharmacy is assisting with dosing and titrating dose up Diabetes Levemir 15 units at bedtime, sliding scale Hypertension BP stable continue SIMON inhibitor and carvedilol Hyperlipidemia Continue statin Hypothyroidism Continue 37.5 mcg of levothyroxine daily Discharge Planning Discharge is pending cardiac clearance. Pt requires a lifevest but cannot afford it. Dr. Domínguez aware Patient and family are looking for assistance as well Lissett Mathis MD August 17, 2017 14:12
[2017-08-17] MEDS ORDERED: WARFARIN SOD 5 MG TAB PO ONE (16:00)
--- NOTE | 2017-08-17 16:09 | PD.CARD.PN ---
Subjective Subjective Remarks feels "alot" better, assymptomatic, walking halls with no symptoms Objective Medications Current Medications Medications (Trade) Dose Ordered Sig/Tony Route Start Time Stop Time Status Last Admin (Lopressor Inj) 5 mg Q5M PRN IV PUSH 08/08/17 01:30 (D50w (Vial) Inj) 50 ml UNSCH PRN IV PUSH 08/08/17 01:45 (Glucagon Inj) 1 mg UNSCH PRN OTHER 08/08/17 01:45 (NovoLOG SUPPLEMENTAL SCALE) 1 ACHS SLIDING SCALE SQ 08/08/17 08:00 08/17/17 12:00 (CeleXA) 20 mg DAILY PO 08/08/17 09:00 08/17/17 09:14 (Synthroid) 37.5 mcg DAILY@0600 PO 08/08/17 09:00 08/17/17 05:40 (Atrovent Neb) 0.5 mg Q4HR NEB PRN NEB 08/08/17 23:45 08/09/17 00:06 (Levemir Inj) 15 units HS SQ 08/09/17 21:00 08/16/17 21:00 (Tessalon) 200 mg TID PRN PO 08/09/17 15:15 08/16/17 21:12 (Mag-Ox) 400 mg BID@1100,2300 PO 08/10/17 23:00 08/17/17 12:43 (KCl) 20 meq Q12HR PO 08/11/17 10:15 08/17/17 09:14 (NS Flush) 2 ml UNSCH PRN IV FLUSH 08/12/17 12:45 08/15/17 17:30 (NS Flush) 2 ml BID IV FLUSH 08/12/17 21:00 08/17/17 09:20 (Aspirin Chew) 162 mg DAILY PO 08/13/17 09:00 08/17/17 09:15 (Plavix) 75 mg DAILY PO 08/13/17 09:00 08/17/17 09:14 (Altace) 2.5 mg DAILY PO 08/13/17 09:00 08/17/17 09:14 (Lipitor) 10 mg HS PO 08/12/17 21:00 08/16/17 21:12 (Lasix Inj) 40 mg BID@ IV PUSH 08/12/17 18:00 Future Hold 08/16/17 10:02 (Robitussin Ac 200-20 Mg/10 ml Liq) 5 ml Q4H PRN PO 08/12/17 19:15 08/14/17 23:41 (Aldactone) 50 mg BID@09,18 PO 08/14/17 09:00 Future Hold 08/15/17 17:30 (Coumadin) 3 mg SuTuThSa@16 PO 08/16/17 16:00 08/16/17 16:57 (Lanoxin) 0.25 mg DAILY PO 08/15/17 09:00 08/17/17 09:16 (Tylenol) 650 mg Q4H PRN PO 08/16/17 08:45 (Coreg) 3.125 mg HS PO 08/16/17 21:00 08/16/17 21:12 Pharmacy Profile Note 0 ml @ 0 mls/hr UNSCH OTHER 08/16/17 11:00 Vital Signs / I&O Vital Signs Date Time Temp Pulse Resp B/P (MAP) Pulse Ox O2 Delivery O2 Flow Rate FiO2 08/17/17 13:00 106 08/17/17 12:14 95 Room Air 08/17/17 12:00 82 08/17/17 11:41 98.7 72 14 107/74 (85) 96 08/17/17 11:00 71 08/17/17 10:00 62 08/17/17 09:00 92 08/17/17 08:03 97.5 86 109/76 (87) 95 08/17/17 08:00 92 08/17/17 07:00 71 08/17/17 06:00 73 08/17/17 05:00 62 08/17/17 04:00 78 08/17/17 04:00 97.7 78 16 107/71 (83) 92 08/17/17 03:00 75 08/17/17 02:00 71 08/17/17 01:00 80 08/17/17 00:00 82 08/16/17 23:00 97 Room Air 08/16/17 23:00 84 08/16/17 23:00 98.1 85 16 115/67 (83) 97 08/16/17 22:00 88 08/16/17 21:00 86 08/16/17 20:00 98 Room Air 08/16/17 20:00 97.6 65 16 108/68 (81) 98 08/16/17 20:00 100 08/16/17 19:00 78 08/16/17 16:36 82 I/O 08/16/17 08/16/17 08/16/17 08/17/17 08/17/17 08/17/17 07:00 15:00 23:00 07:00 15:00 23:00 Intake Total 240 ml 240 ml Balance 240 ml 240 ml Intake Oral 240 ml 240 ml # Voids 4 3 # Bowel Movements 1 0 Physical Exam GENERAL: SKIN: Warm and dry. HEAD: Normocephalic. EYES: No scleral icterus. No injection or drainage. NECK: Supple, trachea midline. No JVD or lymphadenopathy. CARDIOVASCULAR: Regular rate and rhythm without murmurs, gallops, or rubs. RESPIRATORY: Breath sounds equal bilaterally. No accessory muscle use. GASTROINTESTINAL: Abdomen soft, non-tender, nondistended. MUSCULOSKELETAL: No cyanosis, or edema. BACK: Nontender without obvious deformity. No CVA tenderness. Laboratory Laboratory Tests Test 08/17/17 05:13 Prothrombin Time 15.5 SEC Prothromb Time International Ratio 1.5 RATIO Assessment and Plan Problem List: (1) CAD (coronary artery disease) ICD Codes: I25.10 - Atherosclerotic heart disease of [place] coronary artery without angina pectoris (2) Left bundle branch block ICD Codes: I44.7 - Left bundle branch block Status: Acute (3) Renal insufficiency ICD Codes: N28.9 - Renal insufficiency Status: Acute (4) Cardiomyopathy ICD Codes: I42.9 - Cardiomyopathy Status: Acute (5) Atrial fibrillation ICD Codes: I48.91 - Atrial fibrillation Status: Acute (6) Congestive heart failure (CHF) ICD Codes: I50.9 - Congestive heart failure (CHF) Status: Acute (7) Diabetes mellitus ICD Codes: E11.9 - Diabetes mellitus Status: Acute Assessment and Plan 1.) Cardiomyopathy - improved, continue aldactone 50 mg bid, dig .25 mg po qd, dig level = 0.8, Dr Silvestre evaluating for life vest, coverage appears to be limiting candidacy; nyha class1, recheck bmp,bnp,mag,dig 2.) Afib - rate controlled, inr=1.5, continue coumadin, Dr silvestre considering ablation 3.) CAD - continue aspirin, plavix, lipitor 4.) ok to dc from cv standpoint if/when cleared by Sae Hwang MD August 17, 2017 16:09
[2017-08-17] MEDS: ATORVASTATIN 10 MG TAB PO SCH (21:19)
[2017-08-17] MEDS: CARVEDILOL 3.125 MG TAB PO SCH (21:20)
[2017-08-17] MEDS: INSULIN DETEMIR 100 UNITS/ML VIAL SQ SCH (21:48)
[2017-08-17] MEDS: BENZONATATE 100 MG CAP PO PRN (21:53)
[2017-08-18] VITALS (23 sets, daily range): BP systolic 101–131; BP diastolic 59–78; PULSE 65–108; RESP 18–22; TEMP 97.3–98.2; O2SAT 95–99
[2017-08-18] MEDS: LEVOTHYROXINE SODIUM 25 MCG TAB PO SCH (06:46)
[2017-08-18 06:52] LABS: INTERNATIONAL NORMALIZED RATIO 1.6 RATIO; PROTHROMBIN TIME - PATIENT 16.6 SEC (9.8-11.6)
[2017-08-18 07:05] LABS: BICARBONATE 28.1 MEQ/L (21.0-32.0); CALCIUM 9.2 MG/DL (8.5-10.1); CREATININE 1.13 MG/DL (0.60-1.30)
[2017-08-18 07:20] LABS: DIGOXIN 0.9 NG/ML (0.8-2.0)
[2017-08-18] MEDS: INSULIN ASPART SUPPLEMENTAL SCALE SQ SCH ×4 (08:00→20:48)
[2017-08-18] MEDS: POTASSIUM CHLORIDE 20 MEQ CONTROLLED RELEASE TAB PO SCH ×2 (08:27→20:48)
[2017-08-18] MEDS: CITALOPRAM HYDROBROMIDE 20 MG TAB PO SCH (08:28)
[2017-08-18] MEDS: CLOPIDOGREL 75 MG TAB PO SCH (08:28)
[2017-08-18] MEDS: ASPIRIN 81 MG CHEW TAB PO SCH (08:28)
[2017-08-18] MEDS: SODIUM CHLORIDE 0.9% FLUSH 10 ML FLUSH IV FLUSH SCH ×2 (08:28→20:48)
[2017-08-18] MEDS: DIGOXIN 0.25 MG TAB PO SCH (08:28)
[2017-08-18] MEDS: RAMIPRIL 2.5 MG CAP PO SCH (08:28)
--- NOTE | 2017-08-18 08:57 | PD.CARD.PN ---
Subjective Subjective Remarks feels "alot" better, assymptomatic, walking halls with no symptoms Objective Medications Current Medications Medications (Trade) Dose Ordered Sig/Tony Route Start Time Stop Time Status Last Admin (Lopressor Inj) 5 mg Q5M PRN IV PUSH 08/08/17 01:30 (D50w (Vial) Inj) 50 ml UNSCH PRN IV PUSH 08/08/17 01:45 (Glucagon Inj) 1 mg UNSCH PRN OTHER 08/08/17 01:45 (NovoLOG SUPPLEMENTAL SCALE) 1 ACHS SLIDING SCALE SQ 08/08/17 08:00 08/17/17 21:49 (CeleXA) 20 mg DAILY PO 08/08/17 09:00 08/18/17 08:28 (Synthroid) 37.5 mcg DAILY@0600 PO 08/08/17 09:00 08/18/17 06:46 (Atrovent Neb) 0.5 mg Q4HR NEB PRN NEB 08/08/17 23:45 08/09/17 00:06 (Levemir Inj) 15 units HS SQ 08/09/17 21:00 08/17/17 21:48 (Tessalon) 200 mg TID PRN PO 08/09/17 15:15 08/17/17 21:53 (Mag-Ox) 400 mg BID@1100,2300 PO 08/10/17 23:00 08/17/17 21:49 (KCl) 20 meq Q12HR PO 08/11/17 10:15 08/18/17 08:27 (NS Flush) 2 ml UNSCH PRN IV FLUSH 08/12/17 12:45 08/15/17 17:30 (NS Flush) 2 ml BID IV FLUSH 08/12/17 21:00 08/18/17 08:28 (Aspirin Chew) 162 mg DAILY PO 08/13/17 09:00 08/18/17 08:28 (Plavix) 75 mg DAILY PO 08/13/17 09:00 08/18/17 08:28 (Altace) 2.5 mg DAILY PO 08/13/17 09:00 08/18/17 08:28 (Lipitor) 10 mg HS PO 08/12/17 21:00 08/17/17 21:19 (Lasix Inj) 40 mg BID@18 IV PUSH 08/12/17 18:00 Future Hold 08/16/17 10:02 (Robitussin Ac 200-20 Mg/10 ml Liq) 5 ml Q4H PRN PO 08/12/17 19:15 08/14/17 23:41 (Aldactone) 50 mg BID@09,18 PO 08/14/17 09:00 Future Hold 08/15/17 17:30 (Lanoxin) 0.25 mg DAILY PO 08/15/17 09:00 08/18/17 08:28 (Tylenol) 650 mg Q4H PRN PO 08/16/17 08:45 (Coreg) 3.125 mg HS PO 08/16/17 21:00 08/17/17 21:20 Pharmacy Profile Note 0 ml @ 0 mls/hr UNSCH OTHER 08/16/17 11:00 (Coumadin) 2 mg ONCE@1600 ONCE PO 08/18/17 16:00 08/18/17 16:01 (Coumadin) 3 mg DAILY@1600 PO 08/18/17 16:00 Vital Signs / I&O Vital Signs Date Time Temp Pulse Resp B/P (MAP) Pulse Ox O2 Delivery O2 Flow Rate FiO2 08/18/17 06:00 86 08/18/17 05:00 86 08/18/17 04:00 79 08/18/17 04:00 98.1 88 18 112/71 (85) 96 08/18/17 03:00 76 08/18/17 02:00 84 08/18/17 01:00 84 08/18/17 00:00 98.2 96 18 115/78 (90) 95 08/18/17 00:00 80 08/17/17 23:00 114 08/17/17 22:00 92 08/17/17 21:00 96 08/17/17 20:00 121 08/17/17 20:00 98.6 95 18 111/80 (90) 96 08/17/17 20:00 Room Air 08/17/17 19:00 94 08/17/17 18:06 102 08/17/17 17:00 99 08/17/17 16:16 96.9 85 14 126/79 (95) 97 08/17/17 15:00 90 08/17/17 14:00 82 08/17/17 13:00 106 08/17/17 12:14 95 Room Air 08/17/17 12:00 82 08/17/17 11:41 98.7 72 14 107/74 (85) 96 08/17/17 11:00 71 08/17/17 10:00 62 08/17/17 09:00 92 I/O 08/17/17 08/17/17 08/17/17 08/18/17 08/18/17 08/18/17 07:00 15:00 23:00 07:00 15:00 23:00 Intake Total 240 ml 240 ml Balance 240 ml 240 ml Intake Oral 240 ml 240 ml # Voids 3 5 # Bowel Movements 0 2 Physical Exam GENERAL: SKIN: Warm and dry. HEAD: Normocephalic. EYES: No scleral icterus. No injection or drainage. NECK: Supple, trachea midline. No JVD or lymphadenopathy. CARDIOVASCULAR: Regular rate and rhythm without murmurs, gallops, or rubs. RESPIRATORY: Breath sounds equal bilaterally. No accessory muscle use. GASTROINTESTINAL: Abdomen soft, non-tender, nondistended. MUSCULOSKELETAL: No cyanosis, or edema. BACK: Nontender without obvious deformity. No CVA tenderness. Laboratory Laboratory Tests Test 08/18/17 05:53 Prothrombin Time 16.6 SEC Prothromb Time International Ratio 1.6 RATIO Blood Urea Nitrogen 15 MG/DL Creatinine 1.13 MG/DL Random Glucose 185 MG/DL Calcium Level 9.2 MG/DL Magnesium Level 2.0 MG/DL Sodium Level 135 MEQ/L Potassium Level 4.8 MEQ/L Chloride Level 101 MEQ/L Carbon Dioxide Level 28.1 MEQ/L Anion Gap 6 MEQ/L Estimat Glomerular Filtration Rate 66 ML/MIN B-Type Natriuretic Peptide 581 PG/ML Digoxin Level 0.9 NG/ML Assessment and Plan Problem List: (1) CAD (coronary artery disease) ICD Codes: I25.10 - Atherosclerotic heart disease of [place] coronary artery without angina pectoris (2) Left bundle branch block ICD Codes: I44.7 - Left bundle branch block Status: Acute (3) Renal insufficiency ICD Codes: N28.9 - Renal insufficiency Status: Acute (4) Cardiomyopathy ICD Codes: I42.9 - Cardiomyopathy Status: Acute (5) Atrial fibrillation ICD Codes: I48.91 - Atrial fibrillation Status: Acute (6) Congestive heart failure (CHF) ICD Codes: I50.9 - Congestive heart failure (CHF) Status: Acute (7) Diabetes mellitus ICD Codes: E11.9 - Diabetes mellitus Status: Acute Assessment and Plan 1.) Cardiomyopathy - improved, continue aldactone 50 mg bid, dig .25 mg po qd, dig level = 0.8, Dr Silvestre evaluating for life vest, coverage appears to be limiting candidacy; nyha class1, recheck bmp,bnp,mag,dig 2.) Afib - rate controlled, inr=1.5, continue coumadin, Dr silvestre considering ablation 3.) CAD - continue aspirin, plavix, lipitor, c/o leg cramps, may need to lower lipitro dose or dc it, will follow trends 4.) ok to dc from cv standpoint if/when cleared by Sae Hwang MD August 18, 2017 08:57
--- NOTE | 2017-08-18 11:15 | HHI.PR ---
Subjective Remarks Feels better today. No chest pain or shortness of breath. No palpitations. He feels tired. No nausea vomiting able to eat. Needs LifeVest however patient and family says cannot afford. Case management is following for discharge plan. Objective Vitals Vital Signs Date Time Temp Pulse Resp B/P (MAP) Pulse Ox O2 Delivery O2 Flow Rate FiO2 08/18/17 08:30 97 Room Air 08/18/17 08:30 97.5 78 18 123/59 (80) 97 08/18/17 06:00 86 08/18/17 05:00 86 08/18/17 04:00 79 08/18/17 04:00 98.1 88 18 112/71 (85) 96 08/18/17 03:00 76 08/18/17 02:00 84 08/18/17 01:00 84 08/18/17 00:00 98.2 96 18 115/78 (90) 95 08/18/17 00:00 80 08/17/17 23:00 114 08/17/17 22:00 92 08/17/17 21:00 96 08/17/17 20:00 121 08/17/17 20:00 98.6 95 18 111/80 (90) 96 08/17/17 20:00 Room Air 08/17/17 19:00 94 08/17/17 18:06 102 08/17/17 17:00 99 08/17/17 16:16 96.9 85 14 126/79 (95) 97 08/17/17 15:00 90 08/17/17 14:00 82 08/17/17 13:00 106 08/17/17 12:14 95 Room Air 08/17/17 12:00 82 08/17/17 11:41 98.7 72 14 107/74 (85) 96 I/O 08/17/17 08/17/17 08/17/17 08/18/17 08/18/17 08/18/17 07:00 15:00 23:00 07:00 15:00 23:00 Intake Total 240 ml 240 ml Balance 240 ml 240 ml Intake Oral 240 ml 240 ml # Voids 3 5 # Bowel Movements 0 2 Result Diagram: 08/15/17 0527 08/18/17 0553 Imaging Last Impressions Chest X-Ray 08/10/17 0600 Signed Impressions: Service Date/Time: Thursday, August 10, 2017 05:54 - CONCLUSION: 1. Cardiomegaly with right basilar airspace disease and pleural effusion similar to prior study. Minimal left basilar atelectasis. Rah Meyer MD Objective Remarks GENERAL: Well appearing, no acute distress CARDIOVASCULAR: Appear regular without obvious murmurs RESPIRATORY: Breath sounds equal bilaterally. No accessory muscle use. No wheezing GASTROINTESTINAL: Abdomen soft, non-tender MUSCULOSKELETAL: No LE edema. Procedures cardiac cath A/P Problem List: (1) Cardiomyopathy ICD Code: I42.9 - Cardiomyopathy Status: Acute (2) Congestive heart failure (CHF) ICD Code: I50.9 - Congestive heart failure (CHF) Status: Acute Assessment and Plan 61-year-old male patient with medical history significant for CHF, diabetes, hypertension, hyperlipidemia and bipolar disease who presented to [facility] with a four-day history of shortness of breath. Ischemic cardiomyopathy Coronary artery disease s/p cath by Dr. Rose PTCA to diag and BMS to LAD. Ct asa, plavix, BB and statin . Echo 08/10/2017 shows systolic function of 20%, per Dr. Domínguez repeat echo in 60 days, if EF still low then defibrillator will be considered. Both patient and significant other tell me that they cannot afford the LifeVest. Continue medical management: Lasix 40 mg twice daily, carvedilol 6.25 mg twice daily, statin, ramipril 2.5 mg daily, aldactone and digoxin. However due to patient's low blood pressure will continue only the ramipril 2.5 daily and decrease the Coreg to 3.25 once a day per Dr. Domínguez recommendations (will titrate coreg up if BP's improve). Will hold Lasix and Aldactone for now. Continue digoxin. apparently pt cannot afford lifevest. Dr. Domínguez is aware. Community-acquired pneumonia completed course of azithromycin and Ceftin. Pt is Improving. GARCÍA resolved A. fib with RVR Heart rate currently stable was on coumadin, lovenox bridge INR 1.5. continue coumadin. Pharmacy is assisting with dosing and titrating dose up Diabetes Levemir 15 units at bedtime, sliding scale Hypertension BP stable continue SIMON inhibitor and carvedilol Hyperlipidemia Continue statin Hypothyroidism Continue 37.5 mcg of levothyroxine daily Discharge Planning Discharge is pending cardiac clearance. Pt requires a LifeVest but cannot afford it. Dr. Sang blanco. ff for DC plan. Patient and family are looking for assistance as well Angie Coronel MD August 18, 2017 11:15
[2017-08-18] MEDS: MAGNESIUM OXIDE 400 MG TAB PO SCH ×2 (11:20→23:52)
[2017-08-18] MEDS ORDERED: WARFARIN SOD 2 MG TAB PO ONE (16:00)
[2017-08-18] MEDS ORDERED: WARFARIN SOD 3 MG TAB PO SCH (16:00)
[2017-08-18] MEDS: ATORVASTATIN 10 MG TAB PO SCH (20:48)
[2017-08-18] MEDS: CARVEDILOL 3.125 MG TAB PO SCH (20:48)
[2017-08-18] MEDS: INSULIN DETEMIR 100 UNITS/ML VIAL SQ SCH (20:49)
[2017-08-19] VITALS (11 sets, daily range): BP systolic 107–111; BP diastolic 68–72; PULSE 66–112; RESP 16–18; TEMP 97–98.9; O2SAT 92–97
[2017-08-19] MEDS: LEVOTHYROXINE SODIUM 25 MCG TAB PO SCH (04:35)
[2017-08-19 06:09] LABS: INTERNATIONAL NORMALIZED RATIO 2.1 RATIO; PROTHROMBIN TIME - PATIENT 21.3 SEC (9.8-11.6)
[2017-08-19] MEDS: INSULIN ASPART SUPPLEMENTAL SCALE SQ SCH ×2 (08:00→12:00)
[2017-08-19] MEDS: CLOPIDOGREL 75 MG TAB PO SCH (08:32)
[2017-08-19] MEDS: POTASSIUM CHLORIDE 20 MEQ CONTROLLED RELEASE TAB PO SCH (08:32)
[2017-08-19] MEDS: CITALOPRAM HYDROBROMIDE 20 MG TAB PO SCH (08:32)
[2017-08-19] MEDS: ASPIRIN 81 MG CHEW TAB PO SCH (08:33)
[2017-08-19] MEDS: DIGOXIN 0.25 MG TAB PO SCH (08:33)
[2017-08-19] MEDS: SODIUM CHLORIDE 0.9% FLUSH 10 ML FLUSH IV FLUSH SCH (08:33)
[2017-08-19] MEDS: RAMIPRIL 2.5 MG CAP PO SCH (08:33)
--- NOTE | 2017-08-19 10:19 | HHI.PR ---
Subjective Remarks Patient is in the chair. Says she wants to go home and says he cant afford life vest says he will take the risk without life vest./Says he feels better no n/v/d /c. No cp, sob, palpitations. Objective Vitals Vital Signs Date Time Temp Pulse Resp B/P (MAP) Pulse Ox O2 Delivery O2 Flow Rate FiO2 08/19/17 08:30 98.2 91 18 107/72 (84) 96 08/19/17 08:30 97 Room Air 08/19/17 04:00 83 08/19/17 04:00 97.0 81 16 107/68 (81) 92 08/19/17 00:00 97.7 66 16 108/69 (82) 95 08/19/17 00:00 89 08/18/17 21:00 97.3 98 22 128/67 (87) 99 08/18/17 21:00 98 08/18/17 21:00 Room Air 08/18/17 18:01 106 08/18/17 17:00 102 08/18/17 16:01 92 08/18/17 15:15 98.1 65 18 131/73 (92) 98 08/18/17 15:00 96 08/18/17 14:01 93 08/18/17 13:01 80 08/18/17 12:00 88 08/18/17 11:44 97.7 79 18 101/64 (76) 95 08/18/17 11:00 79 I/O 08/18/17 08/18/17 08/18/17 08/19/17 08/19/17 08/19/17 07:00 15:00 23:00 07:00 15:00 23:00 Intake Total 240 ml 720 ml 620 ml Output Total 700 ml Balance 240 ml 720 ml -80 ml Intake Oral 240 ml 720 ml 620 ml Output Urine Total 700 ml # Voids 5 10 # Bowel Movements 2 3 0 Result Diagram: 08/15/17 0527 08/18/17 0553 Imaging Last Impressions Chest X-Ray 08/10/17 0600 Signed Impressions: Service Date/Time: Thursday, August 10, 2017 05:54 - CONCLUSION: 1. Cardiomegaly with right basilar airspace disease and pleural effusion similar to prior study. Minimal left basilar atelectasis. Rah Meyer MD Objective Remarks GENERAL: Well appearing, no acute distress CARDIOVASCULAR: Appear regular without obvious murmurs RESPIRATORY: Breath sounds equal bilaterally. No accessory muscle use. No wheezing GASTROINTESTINAL: Abdomen soft, non-tender MUSCULOSKELETAL: No LE edema. Procedures cardiac cath A/P Problem List: (1) Cardiomyopathy ICD Code: I42.9 - Cardiomyopathy Status: Acute (2) Congestive heart failure (CHF) ICD Code: I50.9 - Congestive heart failure (CHF) Status: Acute Assessment and Plan 61-year-old male patient with medical history significant for CHF, diabetes, hypertension, hyperlipidemia and bipolar disease who presented to [facility] with a four-day history of shortness of breath. Ischemic cardiomyopathy Coronary artery disease s/p cath by Dr. Rose PTCA to diag and BMS to LAD. Ct asa, plavix, BB and statin . Echo 08/10/2017 shows systolic function of 20%, per Dr. Domínguez repeat echo in 60 days, if EF still low then defibrillator will be considered. Both patient and significant other tell me that they cannot afford the LifeVest. Continue medical management: Lasix 40 mg twice daily, carvedilol 6.25 mg twice daily, statin, ramipril 2.5 mg daily, aldactone and digoxin. However due to patient's low blood pressure will continue only the ramipril 2.5 daily and decrease the Coreg to 3.25 once a day per Dr. Domínguez recommendations (will titrate coreg up if BP's improve). Will hold Lasix and Aldactone for now. Continue digoxin. apparently pt cannot afford lifevest. Dr. Domínguez is aware. Community-acquired pneumonia completed course of azithromycin and Ceftin. Pt is Improving. GARCÍA resolved A. fib with RVR Heart rate currently stable was on coumadin, lovenox bridge INR 1.5. continue coumadin. Pharmacy is assisting with dosing and titrating dose up Diabetes Levemir 15 units at bedtime, sliding scale Hypertension BP stable continue SIMON inhibitor and carvedilol Hyperlipidemia Continue statin Hypothyroidism Continue 37.5 mcg of levothyroxine daily Discharge Planning Discharge is pending cardiac clearance. Pt requires a LifeVest but cannot afford it. Dr. Domínguez aware. [facility] for DC plan. Patient and family are looking for assistance as well Angie Coronel MD August 19, 2017 10:19
--- NOTE | 2017-08-19 10:42 | PD.CARD.PN ---
Subjective Subjective Remarks feels "alot" better, assymptomatic, walking halls with no symptoms Objective Medications Current Medications Medications (Trade) Dose Ordered Sig/Tony Route Start Time Stop Time Status Last Admin (Lopressor Inj) 5 mg Q5M PRN IV PUSH 08/08/17 01:30 (D50w (Vial) Inj) 50 ml UNSCH PRN IV PUSH 08/08/17 01:45 (Glucagon Inj) 1 mg UNSCH PRN OTHER 08/08/17 01:45 (NovoLOG SUPPLEMENTAL SCALE) 1 ACHS SLIDING SCALE SQ 08/08/17 08:00 08/18/17 12:00 (CeleXA) 20 mg DAILY PO 08/08/17 09:00 08/19/17 08:32 (Synthroid) 37.5 mcg DAILY@0600 PO 08/08/17 09:00 08/19/17 04:35 (Atrovent Neb) 0.5 mg Q4HR NEB PRN NEB 08/08/17 23:45 08/09/17 00:06 (Levemir Inj) 15 units HS SQ 08/09/17 21:00 08/18/17 20:49 (Tessalon) 200 mg TID PRN PO 08/09/17 15:15 08/17/17 21:53 (Mag-Ox) 400 mg BID@1100,2300 PO 08/10/17 23:00 08/18/17 23:52 (KCl) 20 meq Q12HR PO 08/11/17 10:15 08/19/17 08:32 (NS Flush) 2 ml UNSCH PRN IV FLUSH 08/12/17 12:45 08/15/17 17:30 (NS Flush) 2 ml BID IV FLUSH 08/12/17 21:00 08/19/17 08:33 (Aspirin Chew) 162 mg DAILY PO 08/13/17 09:00 08/19/17 08:33 (Plavix) 75 mg DAILY PO 08/13/17 09:00 08/19/17 08:32 (Altace) 2.5 mg DAILY PO 08/13/17 09:00 08/19/17 08:33 (Lipitor) 10 mg HS PO 08/12/17 21:00 08/18/17 20:48 (Lasix Inj) 40 mg BID@ IV PUSH 08/12/17 18:00 Future Hold 08/16/17 10:02 (Robitussin Ac 200-20 Mg/10 ml Liq) 5 ml Q4H PRN PO 08/12/17 19:15 08/14/17 23:41 (Aldactone) 50 mg BID@09,18 PO 08/14/17 09:00 Future Hold 08/15/17 17:30 (Lanoxin) 0.25 mg DAILY PO 08/15/17 09:00 08/19/17 08:33 (Tylenol) 650 mg Q4H PRN PO 08/16/17 08:45 (Coreg) 3.125 mg HS PO 08/16/17 21:00 08/18/17 20:48 Pharmacy Profile Note 0 ml @ 0 mls/hr UNSCH OTHER 08/16/17 11:00 (Coumadin) 3 mg DAILY@1600 PO 08/18/17 16:00 08/18/17 16:14 Vital Signs / I&O Vital Signs Date Time Temp Pulse Resp B/P (MAP) Pulse Ox O2 Delivery O2 Flow Rate FiO2 08/19/17 08:30 98.2 91 18 107/72 (84) 96 08/19/17 08:30 97 Room Air 08/19/17 04:00 83 08/19/17 04:00 97.0 81 16 107/68 (81) 92 08/19/17 00:00 97.7 66 16 108/69 (82) 95 08/19/17 00:00 89 08/18/17 21:00 97.3 98 22 128/67 (87) 99 08/18/17 21:00 98 08/18/17 21:00 Room Air 08/18/17 18:01 106 08/18/17 17:00 102 08/18/17 16:01 92 08/18/17 15:15 98.1 65 18 131/73 (92) 98 08/18/17 15:00 96 08/18/17 14:01 93 08/18/17 13:01 80 08/18/17 12:00 88 08/18/17 11:44 97.7 79 18 101/64 (76) 95 08/18/17 11:00 79 I/O 08/18/17 08/18/17 08/18/17 08/19/17 08/19/17 08/19/17 07:00 15:00 23:00 07:00 15:00 23:00 Intake Total 240 ml 720 ml 620 ml Output Total 700 ml Balance 240 ml 720 ml -80 ml Intake Oral 240 ml 720 ml 620 ml Output Urine Total 700 ml # Voids 5 10 # Bowel Movements 2 3 0 Physical Exam GENERAL: SKIN: Warm and dry. HEAD: Normocephalic. EYES: No scleral icterus. No injection or drainage. NECK: Supple, trachea midline. No JVD or lymphadenopathy. CARDIOVASCULAR: Regular rate and rhythm without murmurs, gallops, or rubs. RESPIRATORY: Breath sounds equal bilaterally. No accessory muscle use. GASTROINTESTINAL: Abdomen soft, non-tender, nondistended. MUSCULOSKELETAL: No cyanosis, or edema. BACK: Nontender without obvious deformity. No CVA tenderness. Laboratory Laboratory Tests Test 08/19/17 05:17 Prothrombin Time 21.3 SEC Prothromb Time International Ratio 2.1 RATIO Assessment and Plan Problem List: (1) CAD (coronary artery disease) ICD Codes: I25.10 - Atherosclerotic heart disease of [place] coronary artery without angina pectoris (2) Left bundle branch block ICD Codes: I44.7 - Left bundle branch block Status: Acute (3) Renal insufficiency ICD Codes: N28.9 - Renal insufficiency Status: Acute (4) Cardiomyopathy ICD Codes: I42.9 - Cardiomyopathy Status: Acute (5) Atrial fibrillation ICD Codes: I48.91 - Atrial fibrillation Status: Acute (6) Congestive heart failure (CHF) ICD Codes: I50.9 - Congestive heart failure (CHF) Status: Acute (7) Diabetes mellitus ICD Codes: E11.9 - Diabetes mellitus Status: Acute Assessment and Plan 1.) Cardiomyopathy - improved, continue aldactone 50 mg bid, dig .25 mg po qd, dig level = 0.8, Dr Silvestre evaluating for life vest, coverage appears to be limiting candidacy; nyha class1, recheck bmp,bnp,mag,dig 2.) Afib - rate controlled, inr=1.5, continue coumadin, Dr silvestre considering ablation 3.) CAD - continue aspirin, plavix, lipitor, c/o leg cramps, may need to lower lipitro dose or dc it, will follow trends 4.) ok to dc from cv standpoint if/when cleared by Sae Hwang MD August 19, 2017 10:42
[2017-08-19] MEDS ORDERED: PLAV75TA29 PO (12:04)
[2017-08-19] MEDS ORDERED: COUM3TAB PO (12:04)
[2017-08-19] MEDS ORDERED: DIGO0.25 PO (12:04)
[2017-08-19] MEDS ORDERED: ALDA50TA2 PO (12:04)
[2017-08-19] MEDS ORDERED: RAMI2.5C PO (12:04)
--- NOTE | 2017-08-19 12:05 | HHI.DS ---
Discharge Summary Admission Date Aug 08, 2017 at 01:16 Discharge Date: August 19, 2017 Admitting Diagnosis chf exacerbation, cp r/o mi (1) Cardiomyopathy ICD Code: I42.9 - Cardiomyopathy Status: Acute (2) Congestive heart failure (CHF) ICD Code: I50.9 - Congestive heart failure (CHF) Status: Acute Procedures cardiac cath Brief History - From Admission 61-year-old male with a past medical history significant for CHF, diabetes mellitus, hypertension, hyperlipidemia and bipolar disorder presents emergency department for evaluation of shortness of breath. For the past 4-5 days the patient has had shortness of breath that is worse when he lies down and increasing bilateral lower extremity edema. He also reports a dry cough. Denies any fevers/chills. He was seen by his primary care physician and his Lasix dose was increased p.o. with initial good response and then symptoms returned. The patient denies any chest pain. No abdominal pain. No nausea/ vomiting/diarrhea. No lateralizing signs/symptoms. CBC/BMP: 08/15/17 0527 08/18/17 0553 Significant Findings Laboratory Tests Test 08/17/17 05:13 08/18/17 05:53 08/19/17 05:17 Prothrombin Time 15.5 SEC (9.8-11.6) 16.6 SEC (9.8-11.6) 21.3 SEC (9.8-11.6) Random Glucose 185 MG/DL (74-106) Sodium Level 135 MEQ/L (136-145) Estimat Glomerular Filtration Rate 66 ML/MIN (>89) B-Type Natriuretic Peptide 581 PG/ML (0-100) PE at Discharge GENERAL: Well appearing, no acute distress CARDIOVASCULAR: Appear regular without obvious murmurs RESPIRATORY: Breath sounds equal bilaterally. No accessory muscle use. No wheezing GASTROINTESTINAL: Abdomen soft, non-tender MUSCULOSKELETAL: No LE edema. Hospital Course 61-year-old male patient with medical history significant for CHF, diabetes, hypertension, hyperlipidemia and bipolar disease who presented to [place] with a four-day history of shortness of breath. Ischemic cardiomyopathy Coronary artery disease s/p cath by Dr. Rose PTCA to diag and BMS to LAD. Ct asa, plavix, BB and statin . Echo 08/10/2017 shows systolic function of 20%, per Dr. Domínguez repeat echo in 60 days, if EF still low then defibrillator will be considered. Both patient and significant other tell me that they cannot afford the LifeVest. Continue medical management: Lasix 40 mg twice daily, carvedilol 6.25 mg twice daily, statin, ramipril 2.5 mg daily, aldactone and digoxin. However due to patient's low blood pressure will continue only the ramipril 2.5 daily and decrease the Coreg to 3.25 once a day per Dr. Domínguez recommendations (will titrate coreg up if BP's improve). Will hold Lasix and Aldactone for now. Continue digoxin. apparently pt cannot afford lifevest. Dr. Domínguez is aware. Community-acquired pneumonia completed course of azithromycin and Ceftin. Pt is Improving. GARCÍA resolved A. fib with RVR Heart rate currently stable was on coumadin, lovenox bridge INR 1.5. continue coumadin. Pharmacy is assisting with dosing and titrating dose up Diabetes Levemir 15 units at bedtime, sliding scale Hypertension BP stable continue SIMON inhibitor and carvedilol Hyperlipidemia Continue statin Hypothyroidism Continue 37.5 mcg of levothyroxine daily Discharge Planning Discharge is pending cardiac clearance. Pt requires a LifeVest but cannot afford it. Dr. Domínguez aware. ff for DC plan. Patient and family are looking for assistance as well Patient says he can't afford the life vest and he is willing to take the risk to go home without the life vest. Pt is DC home in stable condition to follow up as OP with PCP and consultants. Pt Condition on Discharge: Stable Discharge Disposition: Discharge Home Discharge Time: > 30 minutes Discharge Instructions DIET: Follow Instructions for: Heart Healthy Diet Activities you can perform: Regular-No Restrictions Follow up Referrals: Cardiology - 1 Week PCP Follow-up - 2-3 Days New Medications: Clopidogrel (Plavix) 75 Mg Tab 75 MG PO DAILY for Blood Clot Prevention, #30 TAB Digoxin (Digoxin) 0.25 Mg Tab 0.25 MG PO DAILY for Blood Pressure Management, #30 TAB Ramipril (Ramipril) 2.5 Mg Cap 2.5 MG PO DAILY for Blood Pressure Management, #30 CAP Spironolactone (Aldactone) 50 Mg Tab 50 MG PO BID@09,18 for Blood Pressure Management, #30 TAB Warfarin (Coumadin) 3 Mg Tab 3 MG PO DAILY@1600 for Blood Clot Prevention, #30 TAB Continued Medications: Aspirin (Aspirin Ec Low Strength) 81 Mg Tab 81 MG PO DAILY for Prevent Blood Clot, #30 TAB Atorvastatin (Lipitor 10 Mg Tab) 10 Mg Tab 1 TAB PO DAILY, #30 TAB 3 Refills Atorvastatin (Atorvastatin) 10 Mg Tab 10 MG PO HS for Cholesterol Management, #30 TAB 2 Refills Carvedilol (Carvedilol) 3.125 Mg Tab 3.125 MG PO DAILY, #60 TAB 2 Refills Citalopram (Citalopram) 20 Mg Tab 20 MG PO DAILY for Control Depression, #30 TAB 3 Refills Furosemide (Furosemide) 40 Mg Tab 40 MG PO DAILY, #30 TAB 3 Refills Glipizide (Glipizide) 10 Mg Tab 2 TAB PO BIDAC for Blood Sugar Management, #120 TAB 0 Refills Take 30 minutes before a meal Hydroxyzine Pamoate (Vistaril) 50 Mg Cap 50 MG PO Q8, #90 CAP 6 Refills Levothyroxine (Levothyroxine) 25 Mcg Tab 1.5 TAB PO DAILY for Thyroid for 30 Days, TAB 1 Refill Metformin (Glucophage) 850 Mg Tab 850 MG PO TIDPC for Blood Sugar Management, #90 TAB 3 Refills with meals Potassium Chloride Microencaps (Klor-Con M20) 20 Meq Tab 20 MEQ PO DAILY for Electrolyte Replacement, #30 TAB 3 Refills Discontinued Medications: Furosemide (Lasix) 40 Mg Tab 40 MG PO DAILY, #30 TAB 3 Refills Glipizide (Glipizide) 10 Mg Tab 2 TAB PO BID, #120 TAB 2 Refills Lisinopril (Lisinopril) 10 Mg Tab 10 MG PO DAILY, #90 TAB 2 Refills Sildenafil Citrate (Viagra) 100 Mg Tab 100 MG PO DAILY, #5 TAB 6 Refills Warfarin (Coumadin) 1 Mg Tab 1 MG PO DAILY for Prevent Blood Clot, #30 TAB 2 Refills Warfarin (Coumadin) 4 Mg Tab 4 MG PO DAILY for Prevent Blood Clot, #30 TAB 2 Refills [Levothyroxine Sodium] () 25 MCG TAB 1.5 TAB PO DAILY@0600, #45 TAB 3 Refills Cosma,Angie MD August 19, 2017 12:05
[2017-08-19] MEDS: MAGNESIUM OXIDE 400 MG TAB PO SCH (12:49)
== END 2017-08-19 13:49 | disposition home or self-care (01) | DRG 248 ==
LOC: NEPC 22:56 → NEDA 08-08 01:16 → NEPGCP 08-08 02:19 → N04B 08-11 18:05 → HCIS 08-12 12:22
PROVIDERS: ADMIT Hospitalist; ATTEND Hospitalist
PROC: 02703ZZ Dilation of Coronary Artery, One Artery, Percutaneous Approach (ICD-10-PCS; 2017-08-12)
PROC: 4A023N8 Measurement of Cardiac Sampling and Pressure, Bilateral, Percutaneous Approach (ICD-10-PCS; 2017-08-12)
PROC: B2111ZZ Fluoroscopy of Multiple Coronary Arteries using Low Osmolar Contrast (ICD-10-PCS; 2017-08-12)
PROC: B2151ZZ Fluoroscopy of Left Heart using Low Osmolar Contrast (ICD-10-PCS; 2017-08-12)
PROC: 02703DZ Dilation of Coronary Artery, One Artery with Intraluminal Device, Percutaneous Approach (ICD-10-PCS; principal; 2017-08-12 11:45)
DX: I13.0 Hypertensive heart and chronic kidney disease with heart failure and stage 1 through stage 4 chronic kidney disease, or unspecified chronic kidney disease (principal); I50.23 Acute on chronic systolic (congestive) heart failure; I25.110 Atherosclerotic heart disease of native coronary artery with unstable angina pectoris; N17.9 Acute kidney failure, unspecified; J18.9 Pneumonia, unspecified organism; E11.22 Type 2 diabetes mellitus with diabetic chronic kidney disease; I48.92 Unspecified atrial flutter; E11.65 Type 2 diabetes mellitus with hyperglycemia; E87.1 Hypo-osmolality and hyponatremia; I48.91 Unspecified atrial fibrillation; Z79.01 Long term (current) use of anticoagulants; E78.5 Hyperlipidemia, unspecified; I44.7 Left bundle-branch block, unspecified; N18.9 Chronic kidney disease, unspecified; R00.0 Tachycardia, unspecified; Z79.4 Long term (current) use of insulin; F41.9 Anxiety disorder, unspecified; F31.9 Bipolar disorder, unspecified; R79.1 Abnormal coagulation profile; E03.9 Hypothyroidism, unspecified; D64.9 Anemia, unspecified; I25.5 Ischemic cardiomyopathy
CPT/HCPCS: 71045; 80048; 80053; 80061; 80162; 81001; 82550; 82552; 82810; 82948; 83690; 83735; 83880; 84484; 85002; 85025; 85027; 85347; 85610; 85730; 92920; 92928; 93005; 93306; 93458; 94664; 99152; 99153; C1725; C1769; C1876; C1887; C1893; J0456; J0696; J1160; J1644; J1650; J1815; J1940; J2250; J3010; J3246; J3475; J7050; J7644; Q9967

== ENCOUNTER 2018-03-06 11:11 | Inpatient (IN) ==
[2018-03-06] MEDS ORDERED: Sod Chloride 0.9% Inj 1,000 ML IV.SIG ONE (11:37)
--- NOTE | 2018-03-06 11:46 | ED ---
HPI General Chief Complaint: Arrhythmia / Palpitations Stated Complaint: Dr Sent/Heart Rate Time Seen by Provider: 03/06/18 11:25 Source: patient Mode of arrival: EMS Limitations: no limitations History of Present Illness HPI narrative: The patient is a 62-year-old male with history of atrial fibrillation on multiple medications and Coumadin presenting with persistent tachyarrhythmia for the past 4 weeks. Patient was sent from Dr. Escudero's clinic for further evaluation. Denies any chest pain but admits to exertional shortness of breath and orthopnea. Had similar symptoms in July that resulted with severe hypokalemia when he was discharged home with meds. Was on digoxin at that time but he was not restarted on discharge. The patient was visiting Dr. Escudero today and was advised to come to the hospital for further evaluation. Has history of diabetes mellitus type 2 nuc-opsndor-[id number] high blood pressure and 2 episodes of spontaneous pneumothoraces in the past. Denies smoking or drinking MD complaint: Reports rapid heart beat and palpitations Onset (ago): week(s) (4) Duration: constant Severity: moderate Context: Reports occurred during rest Arrhythmia history: Reports atrial fibrillation and history of electrical cardioversion Associated symptoms: Reports shortness of breath; Denies chest pain, syncope, near-syncope, nausea, vomiting, anxiety and diaphoresis Treatments prior to arrival: Reports calcium channel margarita Related Data Home Medications Medication Instructions Recorded Confirmed aspirin 81 mg PO DAILY 03/06/18 03/06/18 atorvastatin 10 mg PO DAILY 03/06/18 03/06/18 carvedilol 3.125 mg PO BID 03/06/18 03/06/18 clopidogrel 75 mg PO DAILY 03/06/18 03/06/18 furosemide 40 mg PO DAILY 03/06/18 03/06/18 glipizide 10 mg PO BID 03/06/18 03/06/18 levothyroxine 25 mcg PO DAILY 03/06/18 03/06/18 magnesium oxide 400 mg PO BID 03/06/18 03/06/18 metformin 850 mg PO TID 03/06/18 03/06/18 ramipril 2.5 mg PO DAILY 03/06/18 03/06/18 warfarin 5 mg PO DAILY 03/06/18 03/06/18 Allergies Allergy/AdvReac Type Severity Reaction Status Date / Time No Known Allergies Allergy Verified 03/06/18 11:16 Review of Systems ROS: all other systems reviewed are negative [facility] Medical History Medical History Afib (Acute) CHF (congestive heart failure) (Acute) Diabetes (Acute) Hypertension (Acute) Pneumothorax (Acute) Surgical History Surgical History Hx of cholecystectomy (Acute) Social History Social History Substance History: No History of Abuse Second Hand Smoke Exposure: No Smoking Status: Never smoker How Often Do You Have a Drink Containing Alcohol: Never Recent Travel in [facility] within the Last 8 Weeks: No Recent Out of Country Travel within the Last 8 Weeks: No Immunization History Tetanus Immunization: Unsure Exam Narrative Exam Narrative: GENERAL: Alert and oriented no distress SKIN: Focused skin assessment warm/dry. HEAD: Atraumatic. Normocephalic. EYES: Pupils equal and round. No scleral icterus. No injection or drainage. ENT: No nasal bleeding or discharge. Mucous membranes pink and moist. NECK: Trachea midline. No JVD. CARDIOVASCULAR: Irregularly irregular tachyarrhythmia. No murmur appreciated. RESPIRATORY: No accessory muscle use. Clear to auscultation. Breath sounds equal bilaterally. GASTROINTESTINAL: Abdomen soft, non-tender, nondistended. Hepatic and splenic margins not palpable. MUSCULOSKELETAL: No obvious deformities. No clubbing. No cyanosis. +1 pitting edema bilateral lower extremities NEUROLOGICAL: Awake and alert. No obvious cranial nerve deficits. Motor grossly within normal limits. Normal speech. PSYCHIATRIC: Appropriate mood and affect; insight and judgment normal. Course Initial Documented Vital Signs Temperature 97.6 F 03/06/18 11:14 Pulse Rate 130 H 03/06/18 11:14 Respiratory Rate 20 03/06/18 11:14 Blood Pressure 142/82 H 03/06/18 11:14 Pulse Oximetry 97 03/06/18 11:14 Last Documented Vital Signs Temperature 97.2 F L 03/07/18 16:15 Pulse Rate 107 H 03/07/18 16:15 Respiratory Rate 18 03/07/18 16:15 Blood Pressure 109/77 03/07/18 16:15 Pulse Oximetry 95 03/07/18 16:15 Medical Decision Making MDM Narrative Medical decision making narrative: With RVR anticoagulated with therapeutic levels. Will admit for further evaluation. No signs of infectious process no signs of acute ischemia. Medical Screen Exam Complete: Yes Emergency Medical Condition: Yes Medical Records Medical records reviewed: Yes I reviewed the patient's medical records. Lab Data Lab results reviewed: Yes I reviewed the patient's lab results. Result diagrams: 03/07/18 06:01 03/07/18 06:01 Lab Results 03/06/18 03/06/18 03/06/18 Range/Units 11:40 11:40 11:40 WBC 6.0 (4.0-11.0) th/mm3 RBC 3.77 L (4.50-5.90) mil/mm3 Hgb 11.8 L (13.0-17.0) gm/dL Hct 34.7 L (39.0-51.0) % MCV 91.9 (80.0-100.0) fL MCH 31.2 (27.0-34.0) pg MCHC 33.9 (32.0-36.0) % RDW 14.8 (11.6-17.2) % Plt Count 193 (150-450) th/mm3 MPV 8.3 (7.0-11.0) fL Neut % (Auto) 81.0 H (16.0-70.0) % Lymph % (Auto) 10.8 (9.0-44.0) % Caroline % (Auto) 5.9 (0.0-8.0) % Eos % (Auto) 1.6 (0.0-4.0) % Baso % (Auto) 0.7 (0.0-2.0) % Neut # (Auto) 4.9 (1.8-7.7) th/mm3 Lymph # (Auto) 0.7 L (1.0-4.8) th/mm3 Caroline # (Auto) 0.4 (0.0-0.9) th/mm3 Eos # (Auto) 0.1 (0.0-0.4) th/mm3 Baso # (Auto) 0.0 (0.0-0.2) th/mm3 WBC Differential . Differential Comment Auto diff final PT 22.5 H (9.8-11.6) sec INR 2.2 Ratio APTT 35.9 H (23.4-31.7) sec Sodium 138 (136-145) meq/L Potassium 4.1 (3.5-5.1) meq/L Chloride 103 (98-107) meq/L Carbon Dioxide 26.7 (21.0-32.0) meq/L Anion Gap 8 (5-15) meq/L BUN 18 (7-18) mg/dL Creatinine 1.11 (0.60-1.30) mg/dL Estimated GFR 67 L (>89) mL/min POC Glucose (68-110) mg/dl Random Glucose 215 H (74-106) mg/dL Calcium 8.8 (8.5-10.1) mg/dL Troponin I 0.02 (0.02-0.05) ng/mL Digoxin (0.8-2.0) ng/mL 03/06/18 03/06/18 03/06/18 Range/Units 11:40 17:30 18:54 WBC (4.0-11.0) th/mm3 RBC (4.50-5.90) mil/mm3 Hgb (13.0-17.0) gm/dL Hct (39.0-51.0) % MCV (80.0-100.0) fL MCH (27.0-34.0) pg MCHC (32.0-36.0) % RDW (11.6-17.2) % Plt Count (150-450) th/mm3 MPV (7.0-11.0) fL Neut % (Auto) (16.0-70.0) % Lymph % (Auto) (9.0-44.0) % Caroline % (Auto) (0.0-8.0) % Eos % (Auto) (0.0-4.0) % Baso % (Auto) (0.0-2.0) % Neut # (Auto) (1.8-7.7) th/mm3 Lymph # (Auto) (1.0-4.8) th/mm3 Caroline # (Auto) (0.0-0.9) th/mm3 Eos # (Auto) (0.0-0.4) th/mm3 Baso # (Auto) (0.0-0.2) th/mm3 WBC Differential Differential Comment PT (9.8-11.6) sec INR Ratio APTT (23.4-31.7) sec Sodium (136-145) meq/L Potassium (3.5-5.1) meq/L Chloride (98-107) meq/L Carbon Dioxide (21.0-32.0) meq/L Anion Gap (5-15) meq/L BUN (7-18) mg/dL Creatinine (0.60-1.30) mg/dL Estimated GFR (>89) mL/min POC Glucose 172 H 165 H (68-110) mg/dl Random Glucose (74-106) mg/dL Calcium (8.5-10.1) mg/dL Troponin I (0.02-0.05) ng/mL Digoxin Less than 0.1 L (0.8-2.0) ng/mL 03/06/18 03/07/18 03/07/18 Range/Units 22:34 01:58 05:53 WBC (4.0-11.0) th/mm3 RBC (4.50-5.90) mil/mm3 Hgb (13.0-17.0) gm/dL Hct (39.0-51.0) % MCV (80.0-100.0) fL MCH (27.0-34.0) pg MCHC (32.0-36.0) % RDW (11.6-17.2) % Plt Count (150-450) th/mm3 MPV (7.0-11.0) fL Neut % (Auto) (16.0-70.0) % Lymph % (Auto) (9.0-44.0) % Caroline % (Auto) (0.0-8.0) % Eos % (Auto) (0.0-4.0) % Baso % (Auto) (0.0-2.0) % Neut # (Auto) (1.8-7.7) th/mm3 Lymph # (Auto) (1.0-4.8) th/mm3 Caroline # (Auto) (0.0-0.9) th/mm3 Eos # (Auto) (0.0-0.4) th/mm3 Baso # (Auto) (0.0-0.2) th/mm3 WBC Differential Differential Comment PT (9.8-11.6) sec INR Ratio APTT (23.4-31.7) sec Sodium (136-145) meq/L Potassium (3.5-5.1) meq/L Chloride (98-107) meq/L Carbon Dioxide (21.0-32.0) meq/L Anion Gap (5-15) meq/L BUN (7-18) mg/dL Creatinine (0.60-1.30) mg/dL Estimated GFR (>89) mL/min POC Glucose 285 H 174 H 183 H (68-110) mg/dl Random Glucose (74-106) mg/dL Calcium (8.5-10.1) mg/dL Troponin I (0.02-0.05) ng/mL Digoxin (0.8-2.0) ng/mL 03/07/18 03/07/18 03/07/18 Range/Units 06:01 06:01 06:01 WBC 5.4 (4.0-11.0) th/mm3 RBC 3.61 L (4.50-5.90) mil/mm3 Hgb 11.5 L (13.0-17.0) gm/dL Hct 32.8 L (39.0-51.0) % MCV 91.0 (80.0-100.0) fL MCH 31.9 (27.0-34.0) pg MCHC 35.1 (32.0-36.0) % RDW 15.0 (11.6-17.2) % Plt Count 176 (150-450) th/mm3 MPV 8.4 (7.0-11.0) fL Neut % (Auto) 71.2 H (16.0-70.0) % Lymph % (Auto) 15.8 (9.0-44.0) % Caroline % (Auto) 8.4 H (0.0-8.0) % Eos % (Auto) 3.5 (0.0-4.0) % Baso % (Auto) 1.1 (0.0-2.0) % Neut # (Auto) 3.9 (1.8-7.7) th/mm3 Lymph # (Auto) 0.9 L (1.0-4.8) th/mm3 Caroline # (Auto) 0.5 (0.0-0.9) th/mm3 Eos # (Auto) 0.2 (0.0-0.4) th/mm3 Baso # (Auto) 0.1 (0.0-0.2) th/mm3 WBC Differential . Differential Comment Auto diff final PT 26.4 H (9.8-11.6) sec INR 2.6 Ratio APTT (23.4-31.7) sec Sodium 137 (136-145) meq/L Potassium 4.1 (3.5-5.1) meq/L Chloride 105 (98-107) meq/L Carbon Dioxide 24.8 (21.0-32.0) meq/L Anion Gap 7 (5-15) meq/L BUN 17 (7-18) mg/dL Creatinine 1.08 (0.60-1.30) mg/dL Estimated GFR 70 L (>89) mL/min POC Glucose (68-110) mg/dl Random Glucose 155 H (74-106) mg/dL Calcium 8.5 (8.5-10.1) mg/dL Troponin I (0.02-0.05) ng/mL Digoxin (0.8-2.0) ng/mL 03/07/18 03/07/18 03/07/18 Range/Units 09:48 12:10 16:48 WBC (4.0-11.0) th/mm3 RBC (4.50-5.90) mil/mm3 Hgb (13.0-17.0) gm/dL Hct (39.0-51.0) % MCV (80.0-100.0) fL MCH (27.0-34.0) pg MCHC (32.0-36.0) % RDW (11.6-17.2) % Plt Count (150-450) th/mm3 MPV (7.0-11.0) fL Neut % (Auto) (16.0-70.0) % Lymph % (Auto) (9.0-44.0) % Caroline % (Auto) (0.0-8.0) % Eos % (Auto) (0.0-4.0) % Baso % (Auto) (0.0-2.0) % Neut # (Auto) (1.8-7.7) th/mm3 Lymph # (Auto) (1.0-4.8) th/mm3 Caroline # (Auto) (0.0-0.9) th/mm3 Eos # (Auto) (0.0-0.4) th/mm3 Baso # (Auto) (0.0-0.2) th/mm3 WBC Differential Differential Comment PT (9.8-11.6) sec INR Ratio APTT (23.4-31.7) sec Sodium (136-145) meq/L Potassium (3.5-5.1) meq/L Chloride (98-107) meq/L Carbon Dioxide (21.0-32.0) meq/L Anion Gap (5-15) meq/L BUN (7-18) mg/dL Creatinine (0.60-1.30) mg/dL Estimated GFR (>89) mL/min POC Glucose 165 H 266 H 271 H (68-110) mg/dl Random Glucose (74-106) mg/dL Calcium (8.5-10.1) mg/dL Troponin I (0.02-0.05) ng/mL Digoxin (0.8-2.0) ng/mL Imaging Data Radiologist's impression: Chest X-Ray 03/06/18 11:37 CONCLUSION: Mild cardiomegaly with mild interstitial vascular prominence. No evidence of acute consolidating airspace disease. ECG Data EKG Prior to Arrival: No Attestation: I personally reviewed and interpreted this ECG as follows: Interpretation: Atrial flutter with heart rate of 131 bpm. Left bundle branch block. Nonspecific ST-T wave abnormalities. QTc 417 ms. NO STEMI Repeat EKG at 1:50 PM ventricular rate of 65 bpm atrial flutter 2-1 left bundle branch block nonspecific ST-T wave abnormalities normal axis no signs of acute CA Discharge Plan Discharge Disposition Patient Disposition: 30 Still Patient Discharge Condition Condition: Stable Discharge Details Diagnosis: Atrial flutter with rapid ventricular response Physicians Team ED Provider: Frederick Loya Primary Care Provider: UNKNOWN, Attending Provider: Tamie Hernandez Other Providers: Sae Rose Discharge Interventions Interventions: ED Discharge Assessment Last Done: 03/06/18 18:39 Vital Signs Last Done: 03/06/18 14:00 Status ED Status: Left Department Discharge Information Discharge Date/Time: 03/06/18 18:39
--- NOTE | 2018-03-06 12:05 | XR ---
EXAM DATE: 03/06/2018 11:59 AM EST AGE/SEX: 62 years / Male INDICATIONS: Chest pains with pressure, prior heart attack, with stent placements. CLINICAL DATA: This is the patient's initial encounter. Patient reports that signs and symptoms have been present for 1 day and indicates a pain score of 9/10. MEDICAL/SURGICAL HISTORY: Cardiovascular disease. Myocardial infarction. Coronary artery stent . [place] [facility] [place]. . FINDINGS: Lungs are hypoaerated. There is mild generalized interstitial vascular prominence. There is no eviden ce of consolidating airspace disease. Heart is mildly enlarged. CONCLUSION: Mild cardiomegaly with mild interstitial vascular prominence. No evidence of acute consolidating airspace disease. Electronically signed by: Vernon Cutler MD 03/06/2018 12:04 PM EST
[2018-03-06 12:09] LABS: Baso % (Auto) 0.7 % (0.0-2.0); Eos # (Auto) 0.1 th/mm3 (0.0-0.4); Eos % (Auto) 1.6 % (0.0-4.0); Hematocrit 34.7 % (39.0-51.0); Hemoglobin 11.8 gm/dL (13.0-17.0); Lymph # (Auto) 0.7 th/mm3 (1.0-4.8); Lymph % (Auto) 10.8 % (9.0-44.0); Mean Corpuscular HGB Conc 33.9 % (32.0-36.0); Mean Corpuscular Hemoglobin 31.2 pg (27.0-34.0); Mean Corpuscular Volume 91.9 fL (80.0-100.0); Mean Platelet Volume 8.3 fL (7.0-11.0); Mono # (Auto) 0.4 th/mm3 (0.0-0.9); Mono % (Auto) 5.9 % (0.0-8.0); Neut # (Auto) 4.9 th/mm3 (1.8-7.7); Platelet Count 193 th/mm3 (150-450); Red Blood Count 3.77 mil/mm3 (4.50-5.90); Red Cell Distribution Width 14.8 % (11.6-17.2)
[2018-03-06 12:18] LABS: Activated Partial Thrombo Time 35.9 sec (23.4-31.7); INR 2.2 Ratio; Prothrombin Time 22.5 sec (9.8-11.6)
[2018-03-06 12:37] LABS: Calcium 8.8 mg/dL (8.5-10.1); Carbon Dioxide 26.7 meq/L (21.0-32.0); Potassium 4.1 meq/L (3.5-5.1)
[2018-03-06 12:40] LABS: Troponin I 0.02 ng/mL (0.02-0.05)
--- NOTE | 2018-03-06 15:01 | P.HPIM ---
History of Present Illness Primary Care Physician: UNKNOWN Chief Complaint: palpitations History of Present Illness: 62-year-old male with a past medical history significant for Afib/fluter, on coumadin, systolic CHF with low EF, diabetes mellitus, hypertension, hyperlipidemia and bipolar disorder presents emergency department for evaluation of persistent palpitations worsening for the past 4 weeks. Patient was sent from Dr. Rose's clinic for further evaluation. Denies any chest pain but admits to exertional shortness of breath and orthopnea. Had similar symptoms in July that resulted with severe hypokalemia when he was discharged home with meds. Was on digoxin at that time but he was not restarted on discharge. The patient was visiting Dr. Rose today and was advised to come to the hospital for further evaluation. Has a history of diabetes mellitus type 2 lon-opnekhs-hylqkqsiw high blood pressure and 2 episodes of spontaneous pneumothoraces in the past. Denies smoking or drinking. Past Medical History CHF Diabetes mellitus Hypertension Hyperlipidemia Bipolar disorder Past Surgical History Cholecystectomy Right knee Cardiac cath Ablation Family History Negative for CAD/DM Social History Denies alcohol, tobacco and illicit drugs Review of Systems All other systems reviewed negative except as stated in HPI PMFSH - History History Provided By: Patient - Medical History Medical History: Medical History (Last Reviewed 03/06/18 @ 14:55 by Angie Coronel MD) Afib CHF (congestive heart failure) Diabetes Hypertension Pneumothorax - Surgical History Surgical History: Surgical History (Last Reviewed 03/06/18 @ 14:55 by Angie Coronel MD) Hx of cholecystectomy - Social History I have reviewed the patient's Social History: Yes - Tobacco History Smoking Status: Never smoker - Alcohol History How Often Do You Have a Drink Containing Alcohol: Never - Travel History Recent Travel in the [place] Within the Last 8 Weeks: No Recent Travel Out of the Country Within the Last 8 Weeks: No - Immunization History Tetanus Immunization: Unsure Medications and Allergies Allergies Allergy/AdvReac Type Severity Reaction Status Date / Time No Known Allergies Allergy Verified 03/06/18 11:16 Home Medications Medication Instructions Recorded Confirmed Type aspirin 81 mg PO DAILY 03/06/18 03/06/18 History atorvastatin 10 mg PO DAILY 03/06/18 03/06/18 History carvedilol 3.125 mg PO BID 03/06/18 03/06/18 History clopidogrel 75 mg PO DAILY 03/06/18 03/06/18 History furosemide 40 mg PO DAILY 03/06/18 03/06/18 History glipizide 10 mg PO BID 03/06/18 03/06/18 History levothyroxine 25 mcg PO DAILY 03/06/18 03/06/18 History magnesium oxide 400 mg PO BID 03/06/18 03/06/18 History metformin 850 mg PO TID 03/06/18 03/06/18 History ramipril 2.5 mg PO DAILY 03/06/18 03/06/18 History warfarin 5 mg PO DAILY 03/06/18 03/06/18 History Exam Vital signs: Vital Signs 03/06/18 11:14 03/06/18 11:28 03/06/18 12:30 Temperature 97.6 F Pulse Rate 130 H 131 H 72 Respiratory Rate 20 20 20 Blood Pressure 142/82 H 125/89 101/62 Pulse Oximetry 97 96 95 03/06/18 14:00 Temperature Pulse Rate 78 Respiratory Rate 19 Blood Pressure 98/63 L Pulse Oximetry 96 Intake & Output 03/05/18 03/06/18 03/06/18 18:59 06:59 18:59 Intake Total 1000 / 1000 Balance 1000 / 1000 Weight 80.739 kg Intake: IV 1000 / 1000 NS Inj 1,000 ML @ Wide Open IV. 1000 / 1000 SIG BOLUS ONE Rx#:[id number] Narrative: GENERAL: 62 yo male, well nurished, well developed appears in nad. SKIN: Warm and dry. HEAD: Atraumatic. Normocephalic. EYES: Pupils equal and round. No scleral icterus. No injection or drainage. ENT: No nasal bleeding or discharge. Mucous membranes pink and moist. NECK: Trachea midline. No JVD. CARDIOVASCULAR: Regular rate and rhythm. RESPIRATORY: No accessory muscle use. Clear to auscultation. Breath sounds equal bilaterally. GASTROINTESTINAL: Abdomen soft, non-tender, nondistended. Hepatic and splenic margins not palpable. MUSCULOSKELETAL: Extremities without clubbing, cyanosis, or edema. No obvious deformities. NEUROLOGICAL: Awake and alert. No obvious cranial nerve deficits. Motor grossly within normal limits. Five out of 5 muscle strength in the arms and legs. Normal speech. PSYCHIATRIC: Appropriate mood and affect; insight and judgment normal. Results - Labs CBC & Chem 7: 03/06/18 11:40 03/06/18 11:40 Labs: Short CBC 03/06/18 Range/Units 11:40 WBC 6.0 (4.0-11.0) th/mm3 Hgb 11.8 L (13.0-17.0) gm/dL Hct 34.7 L (39.0-51.0) % Plt Count 193 (150-450) th/mm3 BMP 03/06/18 11:40 Sodium 138 Potassium 4.1 Chloride 103 Carbon Dioxide 26.7 BUN 18 Creatinine 1.11 Calcium 8.8 Cardiac Enzymes 03/06/18 Range/Units 11:40 Troponin I 0.02 (0.02-0.05) ng/mL - Imaging Impressions Chest X-Ray 03/06/18 11:37 CONCLUSION: Mild cardiomegaly with mild interstitial vascular prominence. No evidence of acute consolidating airspace disease. Caprini VTE Risk Assessment Caprini VTE Risk Assessment: Moderate/High Risk (score >= 2) Caprini Risk Assessment Model: Point Value = 1 Point Value = 2 Point Value = 3 Point Value = 5 Age 41-60 Minor surgery BMI > 25 kg/m2 Swollen legs Varicose veins or History of unexplained or recurrent spontaneous Oral contraceptives or hormone replacement Sepsis (< 1 month) Serious lung disease, including pneumonia (< 1 month) Abnormal pulmonary function Acute myocardial infarction Congestive heart failure (< 1 month) History of inflammatory bowel disease Medical patient at bed rest Age 61-74 Arthroscopic surgery Major open surgery (> 45 min) Laparoscopic surgery (> 45 min) Malignancy Confined to bed (> 72 hours) Immobilizing plaster cast Central venous access Age >= 75 History of VTE Family history of VTE Factor V Leiden Prothrombin [id number] Lupus anticoagulant Anticardiolipin antibodies Elevated serum homocysteine Heparin-induced thrombocytopenia Other congenital or acquired thrombophilia Stroke (< 1 month) Elective arthroplasty Hip, pelvis, or leg fracture Acute spinal cord injury (< 1 month) Prophylaxis Regimen: Total Risk Factor Score Risk Level Prophylaxis Regimen 0-1 Low Early ambulation 2 Moderate Order ONE of the following: *Sequential Compression Device (SCD) *Heparin 5000 units SQ BID 3-4 Higher Order ONE of the following medications: *Heparin 5000 units SQ TID *Enoxaparin/Lovenox 40 mg SQ daily (WT < 150 kg, CrCl > 30 mL/min) *Enoxaparin/Lovenox 30 mg SQ daily (WT < 150 kg, CrCl > 10-29 mL/min) *Enoxaparin/Lovenox 30 mg SQ BID (WT < 150 kg, CrCl > 30 mL/min) AND/OR *Sequential Compression Device (SCD) 5 or more Highest Order ONE of the following medications: *Heparin 5000 units SQ TID (Preferred with Epidurals) *Enoxaparin/Lovenox 40 mg SQ daily (WT < 150 kg, CrCl > 30 mL/min) *Enoxaparin/Lovenox 30 mg SQ daily (WT < 150 kg, CrCl > 10-29 mL/min) *Enoxaparin/Lovenox 30 mg SQ BID (WT < 150 kg, CrCl > 30 mL/min) AND *Sequential Compression Device (SCD) Assessment and Plan - Plan Atrial flutter with RVR Anticoagulated on Coumadin, monitor INR Patient received bolus of cardizem 20 mg IVP in the Ed and HR is in 70s. Patient says he is not taking digoxin anymore because he had an ablation Continue po cardizem Monitor on telemetry Cnsult patient cardiology Dr Abel Systolic CHF with low EF continue home meds Diabetes mellitus Holding home oral anti-hyperglycemics Monitor blood glucose Sliding-scale insulin Hypertension/hyperlipidemia/bipolar disorder Continue home medications once reconciled FEN Heart healthy diet/ ADA DVT ppx continue Coumadin, monitor INR Discussed Condition With: patient, nurse, ED physician
[2018-03-06] MEDS ORDERED: Bisacodyl 10 MG Supp RECTAL PRN (15:51)
[2018-03-06] MEDS ORDERED: Acetaminophen 325 MG Tablet PO PRN (15:51)
[2018-03-06] MEDS ORDERED: Dextrose 50% in Water 50 ML Vial IV.PUSH PRN (15:55)
--- NOTE | 2018-03-06 16:58 | ECG ---
Date Performed: 03/06/2018 Time Performed: 11:26:35 PTAGE: 62 years EKG: ATRIAL FLUTTER/TACHYCARDIA WITH RAPID VENTRICULAR RESPONSE LEFT BUNDLE BRANCH BLOCK ABNORMA L ECG PREVIOUS TRACING : 08/13/2017 05.02 Compared to previous tracing, rate faster DOCTOR: Renee Juarez Interpretating Date/Time 03/06/2018 16:57:11
[2018-03-06] MEDS: dilTIAZem 30 MG Tablet PO SCH ×2 (17:31→21:01)
[2018-03-06] MEDS: Magnesium Oxide 400 MG Tablet PO SCH (17:31)
[2018-03-06] MEDS: Insulin NovoLOG Aspart Correctional Sugar Inj SQ SCH ×2 (17:34→22:43)
[2018-03-06] MEDS: Senna/Docusate Sodium 8.6/50 MG Tablet PO SCH (21:01)
[2018-03-07 07:45] LABS: INR 2.6 Ratio; Prothrombin Time 26.4 sec (9.8-11.6)
[2018-03-07 07:52] LABS: Baso # (Auto) 0.1 th/mm3 (0.0-0.2); Baso % (Auto) 1.1 % (0.0-2.0); Eos # (Auto) 0.2 th/mm3 (0.0-0.4); Eos % (Auto) 3.5 % (0.0-4.0); Hematocrit 32.8 % (39.0-51.0); Hemoglobin 11.5 gm/dL (13.0-17.0); Lymph # (Auto) 0.9 th/mm3 (1.0-4.8); Lymph % (Auto) 15.8 % (9.0-44.0); Mean Corpuscular HGB Conc 35.1 % (32.0-36.0); Mean Corpuscular Hemoglobin 31.9 pg (27.0-34.0); Mean Platelet Volume 8.4 fL (7.0-11.0); Mono # (Auto) 0.5 th/mm3 (0.0-0.9); Mono % (Auto) 8.4 % (0.0-8.0); Neut # (Auto) 3.9 th/mm3 (1.8-7.7); Neut % (Auto) 71.2 % (16.0-70.0); Platelet Count 176 th/mm3 (150-450); Red Blood Count 3.61 mil/mm3 (4.50-5.90); White Blood Count 5.4 th/mm3 (4.0-11.0)
[2018-03-07 08:03] LABS: Calcium 8.5 mg/dL (8.5-10.1); Carbon Dioxide 24.8 meq/L (21.0-32.0); Potassium 4.1 meq/L (3.5-5.1)
[2018-03-07] MEDS: Furosemide 40 MG Tablet PO SCH (09:50)
[2018-03-07] MEDS: Citalopram 20 MG Tablet PO SCH (09:50)
[2018-03-07] MEDS: Senna/Docusate Sodium 8.6/50 MG Tablet PO SCH ×2 (09:50→20:56)
[2018-03-07] MEDS: Ramipril 2.5 MG Capsule PO SCH (09:50)
[2018-03-07] MEDS: Insulin NovoLOG Aspart Correctional Sugar Inj SQ SCH ×4 (09:51→21:19)
[2018-03-07] MEDS: Carvedilol 6.25 MG Tablet PO SCH ×2 (09:51→21:12)
[2018-03-07] MEDS: Magnesium Oxide 400 MG Tablet PO SCH ×2 (12:10→18:03)
--- NOTE | 2018-03-07 13:05 | P.PNIM ---
Subjective Interval history: still feels his heart rate high. No dizziness or light headedness. his legs are swollen, says he has gained 3 lbs in last 3 weeks. Physical Exam Vital signs: Last Vital Signs Temp 97.3 F L 03/07/18 12:00 Pulse 101 H 03/07/18 12:00 Resp 18 03/07/18 12:00 BP 126/66 03/07/18 12:00 Pulse Ox 94 L 03/07/18 12:00 Intake & Output 03/05/18 03/06/18 03/07/18 03/08/18 06:59 06:59 06:59 06:59 Intake Total 1000 / 1000 Balance 1000 / 1000 Weight 80.739 kg Narrative: GENERAL: middle aged man, not in distress, well nourished. SKIN: Warm and dry. HEENT:not pale,anicteric. NECK: No JVD. CARDIOVASCULAR: tachycardia,regular rate and rhythm. RESPIRATORY: No accessory muscle use. Clear to auscultation. Breath sounds equal bilaterally. GASTROINTESTINAL: Abdomen soft, non-tender, nondistended. Hepatic and splenic margins not palpable. MUSCULOSKELETAL: Extremities -1+ edema bilaterally. No obvious deformities. NEUROLOGICAL: Awake and alert. No obvious cranial nerve deficits. Motor grossly within normal limits. Five out of 5 muscle strength in the arms and legs. Normal speech. PSYCHIATRIC: Appropriate mood and affect; insight and judgment normal. Results Labs CBC & Chem 7: 03/07/18 06:01 03/07/18 06:01 Assessment and Plan Plan 1.Atrial flutter with RVR- Patient says he is not taking digoxin anymore because he had an ablation, and it was discontinued when he was hospitalized at an OSH. 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 ventricular rates trends 120-130b/min. Had received Cardizem in ER,and had been started on PO. Given poor EF of 20% on last ECHO, will dc Cardizem. Can start on prn Metoprolol and increase his Carvedilol 6.25mg bid for now and titrate accordingly. repeat ECHO to re-evaluate EF Anticoagulated on Coumadin, INR therapeutic at 2.6 Monitor on telemetry Consult patient's cardiology Dr Abel--pending. 2.Systolic CHF with low EF 20% 07/2017. He has gain 3 lbs in last 3 weeks, mildly volume overloaded. will give an extra dose of Lasix, and continue his usual daily dose. continue home meds 3.Diabetes mellitus blood glucose elevated. will resume Glipizide, hold Metformin for now. Monitor blood glucose Sliding-scale insulin 4.Hypertension/hyperlipidemia/bipolar disorder Continue home medications once reconciled FEN Heart healthy diet/ ADA DVT ppx continue Coumadin, monitor INR Progress Note: Quality VTE Deep Vein Thrombosis/Pulmonary Embolism Present on Admission: No
[2018-03-07] MEDS ORDERED: Metoprolol Inj 5 MG/5 ML Vial IV.PUSH PRN ×2 (13:27→13:40)
--- NOTE | 2018-03-07 13:47 | ECG ---
Date Performed: 03/06/2018 Time Performed: 13:50:03 PTAGE: 62 years EKG: ATRIAL FLUTTER/TACHYCARDIA LEFT BUNDLE BRANCH BLOCK Compared to previous tracing the ventri cular response to atrial flutter is under control ABNORMAL ECG PREVIOUS TRACING : 03/06/2018 11.26 DOCTOR: Juany Martin Interpretating Date/Time 03/07/2018 13:46:27
[2018-03-07] MEDS ORDERED: Furosemide 40 MG Tablet PO ONE (14:00)
--- NOTE | 2018-03-07 16:36 | MB ---
cc: Sae Rose MD DATE: 03/07/2018 HISTORY OF PRESENT ILLNESS: Mina is a very pleasant 62-year-old gentleman with a history of atrial fibrillation, CHF, cardiomyopathy, coronary artery disease, diabetes, hypertension, history of pneumothorax. He is on Coumadin and his significant other called me yesterday explaining that his heart rate was in the 130s. The patient went to the emergency room. He was admitted. He is essentially asymptomatic. Denies chest pain, fevers, chills, cough, GI or bleeding, PND, orthopnea, syncope, or dizziness. PAST MEDICAL HISTORY: Per history of present illness, also has a history of cholecystectomy. ALLERGIES: NONE. SOCIAL HISTORY: Denies tobacco or alcohol use. MEDICATIONS: In the hospital: 1. Lipitor 10 mg daily. 2. Aspirin 81 mg daily. 3. Coreg 6.25 b.i.d. 4. Celexa 20 mg daily. 5. Clopidogrel 75 mg daily. 6. Lasix 40 mg daily. 7. Insulin. 8. Lactulose. 9. Levothyroxine 25 mcg daily. 10. Ramipril 2.5 mg daily. 11. Warfarin 5 mg daily. PHYSICAL EXAMINATION: VITAL SIGNS: Pulse ranging between 83 and 101, temperature 97.3, respiratory rate 18, blood pressure 126/66, sats 94% on room air. GENERAL: He is alert and oriented x 3, in no acute distress. NECK: Supple. No JVD. No bruit. CARDIOVASCULAR: S1, S2. No murmurs, rubs or gallops. LUNGS: Clear to auscultation bilaterally. ABDOMEN: Soft, nontender, nondistended with positive bowel sounds. EXTREMITIES: No extremity edema. LABORATORY DATA: Chest x-ray shows mild cardiomegaly with mild interstitial vascular prominence. No evidence of acute consolidating airspace disease. EKG: A fib at a rate of 131 beats per minute with left bundle branch block. Repeat EKG: Atrial flutter, rate of 65 beats per minute. LABORATORY DATA: White count 5.4, hemoglobin 11.5, hematocrit 32.8, platelet count 176. INR is 2.6. Sodium 137, potassium 4.1, chloride 105, bicarbonate 24.8, BUN 17, creatinine 1.08. Digoxin less than 0.1. DIAGNOSES: 1. Atrial fibrillation with rapid ventricular response. 2. Cardiomyopathy. 3. Coronary artery disease. DISCUSSION: At this point in time, the patient is therapeutic on his INR. His rate is controlled. He is asymptomatic. He is euvolemic. He is on optimal medical therapy. Recommend continue aspirin and Plavix due to the history of PCI in the last year. Continue Lipitor 10 mg daily, Lasix 40 mg daily, Coreg 6.25 b.i.d. and Altace 2.5 mg daily, as well as Coumadin. The patient can be discharged from a cardiovascular standpoint with followup in my office. MD ZAIRE Islas/louie , 04:17 PM , 04:24 PM
--- NOTE | 2018-03-07 19:06 | ECHRPT ---
CONCLUSIONS Mildly dilated left ventricle. Wall thickness is normal. Left ventricular systolic function is ирина rely reduced with an estimated ejection fraction of 10-15%. The basal posterior/lateral and basal anterior wall s are mildly hypokinetic. Most of the inferior and septal oreilly may be akinetic. All other segments are severel y hypokinetic. The right ventriclar size is upper limits of normal. The right ventricular systolic function is possibly moderately decreased. Trace mitral valve regurgitation. The aortic valve is not well visualized. Possible mild leaflet sclerosis. There is trace tricuspid valve regurgitation. BP: / HR: Rhythm: Atrial flutter MEASUREMENTS (Male / Female) Normal Values Technical Quality:Fair 2D ECHO LV Diastolic Diameter PLAX 5.2 cm 4.2 - 5.9 / 3.9 - 5.3 cm LV Systolic Diameter PLAX 4.7 cm IVS Diastolic Thickness 0.9 cm 0.6 - 1.0 / 0.6 - 0.9 cm LVPW Diastolic Thickness 0.9 cm 0.6 - 1.0 / 0.6 - 0.9 cm LV Relative Wall Thickness 0.3 RV Internal Dim ED PLAX 3.9 cm LVOT Diameter 2.1 cm Aortic Root Diameter 3.1 cm LA Systolic Diameter LX 4.0 cm 3.0 - 4.0 / 2.7 - 3.8 cm LV Ejection Fraction MOD 4C 21.8 % LV Ejection Fraction 4C AL 24.8 % DOPPLER AV Peak Velocity 297.0 cm/s AV Peak Gradient 35.3 mmHg TR Peak Velocity 144.0 cm/s TR Peak Gradient 8.3 mmHg Right Atrial Pressure 10.0 mmHg Pulmonary Artery Systolic Pressu 18.3 mmHg Right Ventricular Systolic Press 18.3 mmHg PV Peak Velocity 114.0 cm/s PV Peak Gradient 5.2 mmHg FINDINGS LEFT VENTRICLE Mildly dilated left ventricle. Wall thickness is normal. The left ventricular systolic function is severely reduced with an estimated ejection fraction of 10 -15%. The basal posterior/lateral and basal anterior oreilly are mildly hypokinetic. Most of the inferior a nd septal oreilly may be akinetic. All other segments are severely hypokinetic. RIGHT VENTRICLE The right ventriclar size is upper limits of normal. The right ventricular systolic function is possibly moderately decreased. LEFT ATRIUM The left atrial size is normal. RIGHT ATRIUM The right atrial size is normal. ATRIAL SEPTUM Normal atrial septal thickness without atrial level shunting by limited color doppler interrogation. AORTA The aortic root and proximal ascending aorta are normal in size on limited imaging. MITRAL VALVE Trace mitral valve regurgitation. AORTIC VALVE The aortic valve is not well visualized. Possible mild leaflet sclerosis. TRICUSPID VALVE There is trace tricuspid valve regurgitation. PULMONARY VALVE Mild pulmonary valve regurgitation. VESSELS The inferior vena cava is normal in size. PERICARDIUM No pericardial effusion. Nathan Demarco MD (Electronically Signed) Final Date:07 March 2018 19:03
[2018-03-07] MEDS ORDERED: Influenza (Quadrivalent) Vaccine 0.5 ML Syringe IM ONE (20:00)
[2018-03-07 20:59] VITALS: RESP 16
[2018-03-08 04:49] VITALS: BP 112/65; TEMP 99; O2SAT 97
--- NOTE | 2018-03-08 08:26 | P.DS ---
DS: Providers Date of admission: 03/07/18 14:18 Primary care physician: UNKNOWN Consults: 03/06/18 16:37 Consult to Cardiology Routine Consulting Provider: Sae Leroy Does the patient have a Bung Dropper who follows them?: Yes Preferred Center Director Lead Teacher:: Sae Leroy Reason for Consultation: Aflutter with RVR Notified:: Physician Spoke with:: DR. LEROY- Date Notified:: 03/06/18 Time Notified:: 16:42 Comments:: LEFT MESSAGE WITH DR. LEROY [phone] Ordering Provider: KYUNG Brief History from admission: 62-year-old male with a past medical history significant for Afib/fluter, on coumadin, systolic CHF with low EF, diabetes mellitus, hypertension, hyperlipidemia and bipolar disorder presents emergency department for evaluation of persistent palpitations worsening for the past 4 weeks. Patient was sent from Dr. Leroy's clinic for further evaluation. Denies any chest pain but admits to exertional shortness of breath and orthopnea. Had similar symptoms in July that resulted with severe hypokalemia when he was discharged home with meds. Was on digoxin at that time but he was not restarted on discharge. The patient was visiting Dr. Leroy today and was advised to come to the hospital for further evaluation. Has a history of diabetes mellitus type 2 [id number] high blood pressure and 2 episodes of spontaneous pneumothoraces in the past. Denies smoking or drinking. Patient denied any dizziness,lightheadedness or syncope. On presentation to ER patient was noted to have tachycardic 130's b/min, he received Diltiazem IV and PO, with improvement in ventricular rate to 70's and was admitted to the CDU. Diltiazem was discontinued due to low EF. Repeat showed EF remains low. Carvedilol dose was increased to 6.25mg twice daily. Patient's heart rate is reasonably controlled,and he remains asymptomatic. He will follow up with his tanbark laborer. DS: Diagnosis Discharge Diagnosis (1) Atrial flutter with rapid ventricular response: Status: Acute DS: Summary 62-year-old male with a past medical history significant for Afib/fluter, on coumadin, systolic CHF with low EF, diabetes mellitus, hypertension, hyperlipidemia and bipolar disorder presents emergency department for evaluation of persistent palpitations worsening for the past 4 weeks. Patient was sent from Dr. Leroy's clinic for further evaluation. Denies any chest pain but admits to exertional shortness of breath and orthopnea. Had similar symptoms in July that resulted with severe hypokalemia when he was discharged home with meds. Was on digoxin at that time but he was not restarted on discharge. The patient was visiting Dr. Leroy today and was advised to come to the hospital for further evaluation. Has a history of diabetes mellitus type 2 [id number] high blood pressure and 2 episodes of spontaneous pneumothoraces in the past. Denies smoking or drinking. Patient denied any dizziness,lightheadedness or syncope. On presentation to ER patient was noted to have tachycardic 130's b/min, he received Diltiazem IV and PO, with improvement in ventricular rate to 70's and was admitted to the CDU. Diltiazem was discontinued due to low EF. Repeat showed EF remains low. Carvedilol dose was increased to 6.25mg twice daily. Patient's heart rate is reasonably controlled,and he remains asymptomatic. He will follow up with his tanbark laborer Time Spent with Patient Total time spent providing and/or coordinating discharge services: Quality: VTE Deep Vein Thrombosis/Pulmonary Embolism Present on Admission: No Results Labs on day of discharge: Labs from last 24 hours 03/08/18 03/07/18 03/07/18 05:56 21:14 16:48 POC Glucose 213 H 254 H 271 H 03/07/18 03/07/18 12:10 09:48 POC Glucose 266 H 165 H Impressions ITS Impressions Chest X-Ray 03/06/18 11:37 CONCLUSION: Mild cardiomegaly with mild interstitial vascular prominence. No evidence of acute consolidating airspace disease. Discharge Plan Discharge Disposition Patient Disposition: 01 Discharge Home Discharge Condition Condition: Stable Discharge Order Discharge Orders: Discharge Order (Routine); Ordered 03/08/18 Ordered By: Tamie Hernandez Discharge Details Anticipated Discharge Date: 03/08/18 Physicians Team Primary Care Provider: UNKNOWN, Attending Provider: Tamie Hernandez Other Providers: Sae Leroy Rxs /Orders / Referrals /Forms Prescriptions: New carvedilol [Coreg] 6.25 mg Tablet 6.25 mg PO BID Qty: 30 RF: 0 Continue furosemide 40 mg Tablet 40 mg PO DAILY RF: 0 atorvastatin 10 mg Tablet 10 mg PO DAILY RF: 0 glipizide 10 mg Tablet 10 mg PO BID RF: 0 metformin 850 mg Tablet 850 mg PO TID RF: 0 clopidogrel 75 mg Tablet 75 mg PO DAILY RF: 0 levothyroxine 25 mcg Tablet 25 mcg PO DAILY RF: 0 ramipril 2.5 mg Capsule 2.5 mg PO DAILY RF: 0 warfarin 5 mg Tablet 5 mg PO DAILY RF: 0 aspirin 81 mg Tablet,Chewable 81 mg PO DAILY RF: 0 magnesium oxide 400 mg Capsule 400 mg PO BID RF: 0 Discontinued carvedilol 3.125 mg Tablet 3.125 mg PO BID RF: 0 Referrals: UNKNOWN, [Primary Care Provider] - See Instructions Discharge Instructions Additional Instructions: You presented to the hospital because of high heart rate. You did not have any dizziness or lightheadedness. Your Carvedilol dose has been increased to 6.25mg twice daily for better heart rate control,please take as prescribed. Follow up with your tanbark laborer Dr. Leroy as scheduled. Status ED Status: Left Department
[2018-03-08] MEDS: Carvedilol 6.25 MG Tablet PO SCH (08:40)
[2018-03-08] MEDS: Citalopram 20 MG Tablet PO SCH (08:40)
[2018-03-08] MEDS: Ramipril 2.5 MG Capsule PO SCH (08:40)
[2018-03-08] MEDS: Furosemide 40 MG Tablet PO SCH (08:41)
[2018-03-08] MEDS: Senna/Docusate Sodium 8.6/50 MG Tablet PO SCH (08:41)
[2018-03-08] MEDS: Insulin NovoLOG Aspart Correctional Sugar Inj SQ SCH (08:59)
[2018-03-08 09:13] VITALS: PULSE 79
== END 2018-03-08 09:21 | disposition home or self-care (01) ==
LOC: NEPC 11:11 → NEDA 11:11 → NEPFCDU 18:36
PROVIDERS: ADMIT Hospitalist; ATTEND Hospitalist